=== PATIENT | female | born 1985 ===

== ENCOUNTER 2020-04-29 14:44 | Outpatient (REF) | payer MEDICARE, MEDICAID, SELFPAY ==
[2020-04-29 16:31] LABS: CT PCR NOT DETECTED (Not Detect.); NG PCR NOT DETECTED (Not Detect.)
[2020-04-30 09:43] LABS: BV Int Neg Control Negative (Negative); BV Int Pos Control Positive (Positive)
== END 2020-04-29 14:45 | disposition home or self-care (01) ==
LOC: HO.LNP 14:44
PROVIDERS: Visit Provider Nurse Practitioner Family
DX: R30.0 Dysuria (principal); Z13.9 Encounter for screening, unspecified; B37.9 Candidiasis, unspecified
CPT/HCPCS: 87480; 87491; 87510; 87591; 87660

== ENCOUNTER 2020-08-18 15:05 | Emergency (ER) | payer MEDICARE, MEDICAID, SELFPAY ==
--- NOTE | 2020-08-18 | ECG_ITS ---
Test Reason : OVERDOSE Blood Pressure : / mmHG Vent. Rate : 083 BPM Atrial Rate : 083 BPM P-R Int : 148 ms QRS Dur : 062 ms QT Int : 370 ms P-R-T Axes : 050 000 031 degrees QTc Int : 434 ms Normal sinus rhythm Normal ECG No previous ECGs available Referred By: Prasad Roth Electronically Signed By:BHAKTI MCQUEEN MD
[2020-08-18 15:14] VITALS: BP 148/87; PULSE 81; RESP 22; TEMP 37.1; O2SAT 99; BMI 28.9
[2020-08-18 15:28] LABS: Glucose, Whole Blood 61 mg/dL (60-115)
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
[2020-08-18 15:34] VITALS: BP 124/80; PULSE 79; RESP 18; O2SAT 98
[2020-08-18 15:43] LABS: MANUAL DIFF FLAG NO
[2020-08-18 15:44] LABS: Basophils Percent Auto 0.3 % (0-2); Eosinophils Absolute Auto 0.2 X10*3/uL (0.0-0.4); Eosinophils Percent Auto 1.7 % (0-4); Hemoglobin 12.1 g/dl (12.0-16.0); Imm Gran Abs Auto 0.05 X10*3/uL (0.00-0.03); Imm Gran Pct Auto 0.5 % (0.0-0.4); Lymphocytes Absolute Auto 2.6 X10*3/uL (1.2-4.9); Lymphocytes Percent Auto 24.5 % (20-40); Mean Corpuscular HGB Conc 32.7 g/dl (31.0-35.0); Mean Corpuscular Hemoglobin 30.9 pg (27.0-33.0); Mean Corpuscular Volume 94.6 fL (80-98); Mean Platelet Volume 10.8 fL (9.4-12.3); Monocytes Absolute Auto 0.9 X10*3/uL (0.1-1.2); Monocytes Percent Auto 8.4 % (2-11); Neutrophils Percent Auto 64.6 % (45-73); Platelet Count 326 X10*3/uL (160-400); Red Blood Count 3.91 X10*6/uL (4.20-5.50); Red Cell Distribution Width 13.1 % (11.0-16.0); White Blood Count 10.8 X10*3/uL (4.8-10.8)
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
[2020-08-18 15:57] LABS: INTERNATIONAL NORM RATIO 1.1 (0.9-1.1); Prothrombin Time 12.9 SEC (10.8-13.0)
[2020-08-18 15:59] LABS: Partial Thromboplastin Time 37.4 SEC (24.1-38.0)
[2020-08-18] MEDS: Dextrose 5 % and 0.45 % NaCl 1,000 ML 125 ML IVCONT (16:05)
--- NOTE | 2020-08-18 16:05 | PC.NURSE ---
contact made with poison control. supportive care. pa aware
[2020-08-18 16:07] LABS: Ethanol < 10 mg/dL
[2020-08-18 16:11] LABS: Acetaminophen LAB < 1 mcg/mL (<30); Alanine Aminotransferase 20 U/L (0-31); Albumin Level 4.1 g/dL (3.5-5.0); Alkaline Phosphatase 93 U/L (39-117); Anion Gap 10 (12-20); Aspartate Amino Transferase 19 U/L (5-31); Bilirubin Direct < 0.2 mg/dL (0.0-0.5); Bilirubin Total 0.4 mg/dL (0.0-1.0); Blood Urea Nitrogen 8 mg/dL (9-16); Calcium 9.1 mg/dL (8.4-10.2); Carbon Dioxide 27 mmol/L (22-29); Chloride 107 mmol/L (96-108); Creatinine Clr Calc Pharmacy 100.3; Estimated Glomerular Filt Rate > 60; Glucose Random 86 mg/dL (60-115); Potassium 4.3 mmol/L (3.3-5.1); Salicylate < 5.0 mg/dL (15-30); Sodium 140 mmol/L (135-145); Total Protein 6.6 g/dL (6.5-8.0)
--- NOTE | 2020-08-18 16:16 | PC.NURSE ---
unable to complete [place] scale at this time d/t pt being drowsy
[2020-08-18 16:17] LABS: HCG Quantitative < 2 mIU/mL
[2020-08-18 16:26] LABS: Amphetamine Screen Urine Not Detected (Not Detect); Barbiturates, Urine Not Detected (Not Detect); Benzodiazepines Screen Urine Not Detected (Not Detect); Cannabinoid Screen Urine Not Detected (Not Detect); Cocaine Screen Urine Not Detected (Not Detect); Opiate Screen Urine Not Detected (Not Detect); Phencyclidine Screen Urine Not Detected (Not Detect)
[2020-08-18 17:41] LABS: Glucose Urine UA 100 MG/DL (NEG); Leukocyte Esterase Urine NEG (NEG); Nitrite Urine NEG (NEG); Urine Blood NEG (NEG); Urine Ketones NEG (NEG); Urine Protein NEG (NEG-TRACE)
[2020-08-18 17:45] LABS: Appearance Urine CLEAR; Color Urine STRAW
--- NOTE | 2020-08-18 17:51 | PC.NURSE ---
faxed and called to [facility]
[2020-08-18 18:31] VITALS: PULSE 80; O2SAT 98
--- NOTE | 2020-08-18 18:52 | PC.NURSE ---
pt is now more alert. ambualted to bathroom with po and security. pt requesting to go home. pt updated on plan of care and denies si at this time. pt educated she still needs to see n.
[2020-08-18 19:31] LABS: Glucose, Whole Blood 88 mg/dL (60-115)
[2020-08-18 19:32] VITALS: BP 119/58; PULSE 83; RESP 18; TEMP 36.7; O2SAT 98
--- NOTE | 2020-08-18 19:33 | PC.NURSE ---
eating sandwich, calm, iv fluids continue, reioriented to plan and fact that she must wait for bhn and cannot leave. pt is alert, perrla, denies si.
--- NOTE | 2020-08-18 20:49 | PC.NURSE ---
PT AMBULATORY TO BATHROOM WITH STEADY GAIT. PT REFUSING TO EAT, CONTINUED ON d5 INFUSION LAST POC 88.
--- NOTE | 2020-08-18 22:28 | PC.NURSE ---
called [facility] to get an estimated time. n confirmed she was on the list, then they reported that they needed us to resend the fax. transfer summary resent.
--- NOTE | 2020-08-18 22:47 | PC.NURSE ---
calling irma Mosquera confirms that fax was received. uNABLE TO GIVE ETA FOR EVAL. LIKELY NOT TILL TOMORROW.
[2020-08-19] VITALS: RESP 16
--- NOTE | 2020-08-19 01:00 | PC.NURSE ---
KARENAN MEETING WITH PATIENT AT THIS TIME.
[2020-08-19 02:00] VITALS: RESP 16
== END 2020-08-19 02:54 | disposition home or self-care (01) ==
PROVIDERS: Physician Assistant; Emergency Provider Emergency Medicine
DX: T42.4X1A Poisoning by benzodiazepines, accidental (unintentional), initial encounter (principal); Y92.9 Unspecified place or not applicable; Z79.899 Other long term (current) drug therapy
CPT/HCPCS: 36415; 80053; 80076; 80143; 80179; 80307; 80320; 81003; 82248; 82947; 84702; 85025; 85610; 85730; 93005; 96365; 96375; 99285

== ENCOUNTER 2020-09-14 12:34 | Emergency (ER) | payer MEDICARE, MEDICAID, SELFPAY ==
[2020-09-14 12:42] VITALS: BP 130/80; PULSE 84; O2SAT 98
[2020-09-14 12:57] VITALS: BP 119/60; PULSE 86; RESP 14; O2SAT 96; BMI 20.9
[2020-09-14 13:11] VITALS: BP 119/60; PULSE 86; RESP 14; O2SAT 96
[2020-09-14 13:22] LABS: MANUAL DIFF FLAG NO
[2020-09-14 13:35] LABS: Basophils Percent Auto 0.2 % (0-2); Eosinophils Absolute Auto 0.2 X10*3/uL (0.0-0.4); Eosinophils Percent Auto 2.4 % (0-4); Hematocrit 36.6 % (37-47); Hemoglobin 11.9 g/dl (12.0-16.0); Imm Gran Abs Auto 0.03 X10*3/uL (0.00-0.03); Imm Gran Pct Auto 0.3 % (0.0-0.4); Lymphocytes Absolute Auto 2.2 X10*3/uL (1.2-4.9); Lymphocytes Percent Auto 22.3 % (20-40); Mean Corpuscular HGB Conc 32.5 g/dl (31.0-35.0); Mean Corpuscular Hemoglobin 30.7 pg (27.0-33.0); Mean Corpuscular Volume 94.6 fL (80-98); Mean Platelet Volume 11.3 fL (9.4-12.3); Monocytes Absolute Auto 0.7 X10*3/uL (0.1-1.2); Monocytes Percent Auto 6.5 % (2-11); Neutrophils Absolute Auto 6.8 X10*3/uL (2.0-8.3); Neutrophils Percent Auto 68.3 % (45-73); Platelet Count 297 X10*3/uL (160-400); Red Blood Count 3.87 X10*6/uL (4.20-5.50); Red Cell Distribution Width 13.6 % (11.0-16.0)
[2020-09-14 13:52] LABS: Glucose Urine UA NEG (NEG); Leukocyte Esterase Urine NEG (NEG); Nitrite Urine NEG (NEG); Specific Gravity - Urine >= 1.030 (1.005-1.025); Urine Blood NEG (NEG); Urine Ketones NEG (NEG); Urine Protein NEG (NEG-TRACE)
[2020-09-14 13:54] LABS: Appearance Urine CLEAR; Color Urine YELLOW; UPreg QC Valid YES; Urine Pregnancy NEGATIVE (NEGATIVE)
[2020-09-14 13:57] LABS: Alanine Aminotransferase 21 U/L (0-31); Albumin Level 3.8 g/dL (3.5-5.0); Alkaline Phosphatase 82 U/L (39-117); Anion Gap 14 (12-20); Aspartate Amino Transferase 19 U/L (5-31); Bilirubin Total 0.2 mg/dL (0.0-1.0); Blood Urea Nitrogen 12 mg/dL (9-16); Calcium 8.5 mg/dL (8.4-10.2); Carbon Dioxide 21 mmol/L (22-29); Chloride 110 mmol/L (96-108); Creatinine Clr Calc Pharmacy 98.2; Estimated Glomerular Filt Rate > 60; Glucose Random 105 mg/dL (60-115); Potassium 3.8 mmol/L (3.3-5.1); Sodium 141 mmol/L (135-145); Total Protein 6.2 g/dL (6.5-8.0)
[2020-09-14 13:59] LABS: RBC Urine 0-2 /HPF (0); WBC Urine 0-2 /HPF (0-4)
[2020-09-14 14:00] LABS: Bacteria Urine 1+ /LPF; Mucus Urine 1+ /LPF; Squamous Epithelial Cell Urine 1+ /LPF
[2020-09-14 14:12] LABS: Amphetamine Screen Urine Not Detected (Not Detect); Barbiturates, Urine Not Detected (Not Detect); Benzodiazepines Screen Urine Not Detected (Not Detect); Cannabinoid Screen Urine Not Detected (Not Detect); Cocaine Screen Urine Not Detected (Not Detect); Opiate Screen Urine Not Detected (Not Detect); Phencyclidine Screen Urine Not Detected (Not Detect)
--- NOTE | 2020-09-14 14:56 | ED_ITS ---
HPI - Nausea/Vomiting/Diarrhea General Stated complaint: LETHARGIC&DIZZY S/P EATING EDIBLES TUESDAY Time Seen by Provider: 09/14/20 12:54 Source: patient and EMS Mode of arrival: EMS Limitations: no limitations History of Present Illness HPI Narrative: 35-year-old female who reports history of asthma otherwise denies any past medical or surgical history presenting via EMS after ingesting edible brownies states it made her feel dizzy some nausea. MD elicited complaint: nausea Description of vomiting: other Associated nausea: Yes Associated abdominal pain: Yes Location of pain: epigastric Radiation: epigastric Pain consistency: now resolved Severity: mild Quality: cramping Exacerbating factors: none Relieving factors: none Associated symptoms: denies other symptoms Related Data Home Medications Medication Instructions Recorded Confirmed fluoxetine 20 mg PO DAILY 08/18/20 08/18/20 lorazepam 0.5 mg PO BID PRN 08/18/20 08/18/20 magnesium oxide 400 mg PO DAILY 08/18/20 08/18/20 montelukast 10 mg PO BEDTIME 08/18/20 08/18/20 omeprazole 40 mg PO DAILY 08/18/20 08/18/20 oxcarbazepine 150 mg PO BID 08/18/20 08/18/20 polyethylene glycol 3350 17 g PO DAILY 08/18/20 08/18/20 Allergies Allergy/AdvReac Type Severity Reaction Status Date / Time amoxicillin [AMOXICILLIN] Allergy Unknown RASH Unverified 02/21/20 17:04 cefuroxime [From CEFTIN] Allergy Unknown HIVES, Unverified 02/21/20 17:04 ANAPHYLAXIS divalproex sodium Allergy Unknown TALKS Unverified 02/21/20 17:04 [From DEPAKOTE] WEIRD Penicillins [PENICILLINS] Allergy Unknown HIVES Unverified 02/21/20 17:04 Review of Systems Review of Systems: Constitutional: No Weight loss, No Fever, No Chills, No Night Sweats, No Fatigue, No Malaise ENT/Mouth: No Hearing loss, No Ear Pain, No Nasal Congestion, No Sinus Pain, No Hoarseness, No sore throat, No Rhinorrhea, No Swallowing Difficulty Eyes: No Eye Pain, No Swelling, No Redness, No Foreign Body, No Discharge, No Vision Changes Cardiovascular: No Chest Pain, No SOB, No Dyspnea on Exertion, No Orthopnea, No Edema, No Palpitations Respiratory: No Cough, No Sputum, No Wheezing, No Smoke Exposure, No Dyspnea Gastrointestinal: + Nausea, No Vomiting, No Diarrhea, No Constipation, No abdominal Pain, No Hematochezia, No Melena Genitourinary: no irregular bleeding, No Dysuria, No Urinary Frequency, No Hematuria, No Urinary Incontinence, No Urgency, No Flank Pain, No Urinary Flow Changes, No Hesitancy Musculoskeletal: No joint pain, No Myalgias, No Joint Swelling Skin: No Skin Lesions, No rash Neuro: No Weakness, No Numbness, No Paresthesias, No Loss of Consciousness, No Dizziness, No Headache Psych: No Anxiety/Panic, No Depression, No SI/HI/AH/VH, No Social Issues Heme/Lymph: No Bruising, No Bleeding,No Lymphadenopathy Endocrine: No Polyuria, No Polydipsia, No Temperature Intolerance Yes all other systems are reviewed and are negative Gastrointestinal: Gastrointestinal: Reports nausea PMFSH Past Medical History Medical History (Updated 09/14/20 @ 15:07 by Dwayne Murdock NP) Asthma No known health problems Social History Social History Alcohol intake: current Alcohol intake frequency: a few times a week Smoking Status: Current some day smoker Use of substances other than those prescribed or required for medical reasons: Yes Substance Use Type: Marijuana Substance Use Frequency: Occasionally Last Used Substance: Days (ago) Any prior treatment program specific to substance use: No Advance Directives: No Physical Exam Vital Signs: Vital Signs: Last Vital Signs Pulse 86 09/14/20 13:11 Resp 14 09/14/20 13:11 BP 119/60 09/14/20 13:11 Pulse Ox 96 09/14/20 13:11 Body Mass Index 20.9 Reviewed Const: General: cooperative and healthy appearing; No acute distress or intoxicated appearing Nutritional Appearance: average body habitus Orientation/consciousness: patient oriented x3 HENMT: Head: Yes normal to inspection Ears: hearing grossly normal bilaterally Eyes: General: appearance normal, both eyes and all related structures Visual Peterson: normal visual peterson by confrontation Neck: Neck: Yes normal visual inspection, No positive Brudzinski's sign, No positive Kernig's sign and No tender Thyroid: Thyroid normal Chest: Chest palpation & inspection: normal inspection of the chest Resp: Effort & Inspection: normal respiratory effort Auscultation: clear to auscultation bilaterally Cardio: Jugular venous distension: no JVD Rhythm: regular rhythm Heart sounds: S1 normal heart sound present and S2 normal heart sound present GI: Inspection: Yes normal to inspection Palpation (GI): Soft to palpation Percussion: Yes normal to percussion Auscultation: normal bowel sounds : General: Yes no CVA tenderness Back/Spine/Pelvis: Back: no CVA tenderness Skin: General skin exam: no rashes or lesions noted Neuro: General: patient oriented x3 Extrem: General: Yes normal to inspection Course Reevaluation(s) Reevaluation #1: Feeling of dizziness, nausea and euphoric state after ingesting edible Brownie. Has been resting comfortably no nausea vomiting diarrhea here. Labs done stable. Tolerating p.o. intake well. Overall well nontoxic appearing. Offers no other complaints. VSS, NAD. Abdominal exam remains benign. It is reported in the nurse's triage ?tenderness to right lower abdomen, shakiness and nausea? but she has only epigastric pain directly after she had the edible otherwise no abdominal pain. I did review with her her findings consistent with the gastric irritation and affects from the edible. I do not suspect acute intra-abdominal pathology however she will be discharged with precaution return follow-up instructions. She feels better she is requesting discharge. MDM - Nausea/Vomiting/Diarrhea Lab Data Result diagrams: 09/14/20 13:17 09/14/20 13:18 Labs: Lab Results 09/14/20 09/14/20 09/14/20 Range/Units 13:17 13:18 13:43 WBC 10.0 (4.8-10.8) X10*3/uL RBC 3.87 L (4.20-5.50) X10*6/uL Hgb 11.9 L (12.0-16.0) g/dl Hct 36.6 L (37-47) % MCV 94.6 (80-98) fL MCH 30.7 (27.0-33.0) pg MCHC 32.5 (31.0-35.0) g/dl RDW 13.6 (11.0-16.0) % Plt Count 297 (160-400) X10*3/uL MPV 11.3 (9.4-12.3) fL Immature Gran % (Auto) 0.3 (0.0-0.4) % Neut % (Auto) 68.3 (45-73) % Lymph % (Auto) 22.3 (20-40) % Spencer % (Auto) 6.5 (2-11) % Eos % (Auto) 2.4 (0-4) % Baso % (Auto) 0.2 (0-2) % Lymph # (Auto) 2.2 (1.2-4.9) X10*3/uL Spencer # (Auto) 0.7 (0.1-1.2) X10*3/uL Eos # (Auto) 0.2 (0.0-0.4) X10*3/uL Baso # (Auto) 0.0 (0.0-0.2) X10*3/uL Abs Immat Gran (auto) 0.03 (0.00-0.03) X10*3/uL Absolute Neuts (auto) 6.8 (2.0-8.3) X10*3/uL Absolute Nucleated RBC 0.000 (0.0-0.012) X10*3/uL Nucleated RBC % (auto) 0.0 (0.0-0.2) /100WBC Sodium 141 (135-145) mmol/L Potassium 3.8 (3.3-5.1) mmol/L Chloride 110 H (96-108) mmol/L Carbon Dioxide 21 L (22-29) mmol/L Anion Gap 14 (12-20) BUN 12 (9-16) mg/dL Creatinine 0.73 (0.5-1.4) mg/dL Estim Creat Clear Calc 98.2 Estimated GFR > 60 Random Glucose 105 (60-115) mg/dL Calcium 8.5 D (8.4-10.2) mg/dL Total Bilirubin 0.2 (0.0-1.0) mg/dL AST 19 (5-31) U/L ALT 21 (0-31) U/L Alkaline Phosphatase 82 (39-117) U/L Total Protein 6.2 L (6.5-8.0) g/dL Albumin 3.8 (3.5-5.0) g/dL Urine Color Urine Appearance Urine pH (5.0-8.0) Ur Specific [place] (1.005-1.025) Urine Protein (NEG-TRACE) MG/DL Urine Glucose (UA) (NEG) MG/DL Urine Ketones (NEG) MG/DL Urine Blood (NEG) Urine Nitrite (NEG) Ur Leukocyte Esterase (NEG) Urine RBC (0) /HPF Urine WBC (0-4) /HPF Ur Squamous Epith Cells /LPF Urine Bacteria /LPF Urine Mucus /LPF Urine Test (NEGATIVE) Urine Opiates Screen Not Detected (Not Detect) Ur Barbiturates Screen Not Detected (Not Detect) Ur Phencyclidine Scrn Not Detected (Not Detect) Ur Amphetamines Screen Not Detected (Not Detect) U Benzodiazepines Scrn Not Detected (Not Detect) Urine Cocaine Screen Not Detected (Not Detect) U Marijuana (THC) Screen Not Detected (Not Detect) 09/14/20 09/14/20 Range/Units 13:43 13:43 WBC (4.8-10.8) X10*3/uL RBC (4.20-5.50) X10*6/uL Hgb (12.0-16.0) g/dl Hct (37-47) % MCV (80-98) fL MCH (27.0-33.0) pg MCHC (31.0-35.0) g/dl RDW (11.0-16.0) % Plt Count (160-400) X10*3/uL MPV (9.4-12.3) fL Immature Gran % (Auto) (0.0-0.4) % Neut % (Auto) (45-73) % Lymph % (Auto) (20-40) % Spencer % (Auto) (2-11) % Eos % (Auto) (0-4) % Baso % (Auto) (0-2) % Lymph # (Auto) (1.2-4.9) X10*3/uL Spencer # (Auto) (0.1-1.2) X10*3/uL Eos # (Auto) (0.0-0.4) X10*3/uL Baso # (Auto) (0.0-0.2) X10*3/uL Abs Immat Gran (auto) (0.00-0.03) X10*3/uL Absolute Neuts (auto) (2.0-8.3) X10*3/uL Absolute Nucleated RBC (0.0-0.012) X10*3/uL Nucleated RBC % (auto) (0.0-0.2) /100WBC Sodium (135-145) mmol/L Potassium (3.3-5.1) mmol/L Chloride (96-108) mmol/L Carbon Dioxide (22-29) mmol/L Anion Gap (12-20) BUN (9-16) mg/dL Creatinine (0.5-1.4) mg/dL Estim Creat Clear Calc Estimated GFR Random Glucose (60-115) mg/dL Calcium (8.4-10.2) mg/dL Total Bilirubin (0.0-1.0) mg/dL AST (5-31) U/L ALT (0-31) U/L Alkaline Phosphatase (39-117) U/L Total Protein (6.5-8.0) g/dL Albumin (3.5-5.0) g/dL Urine Color YELLOW Urine Appearance CLEAR Urine pH 6.0 (5.0-8.0) Ur Specific [place] >= 1.030 H (1.005-1.025) Urine Protein NEG (NEG-TRACE) MG/DL Urine Glucose (UA) NEG (NEG) MG/DL Urine Ketones NEG (NEG) MG/DL Urine Blood NEG (NEG) Urine Nitrite NEG (NEG) Ur Leukocyte Esterase NEG (NEG) Urine RBC 0-2 (0) /HPF Urine WBC 0-2 (0-4) /HPF Ur Squamous Epith Cells 1+ /LPF Urine Bacteria 1+ /LPF Urine Mucus 1+ /LPF Urine Test NEGATIVE (NEGATIVE) Urine Opiates Screen (Not Detect) Ur Barbiturates Screen (Not Detect) Ur Phencyclidine Scrn (Not Detect) Ur Amphetamines Screen (Not Detect) U Benzodiazepines Scrn (Not Detect) Urine Cocaine Screen (Not Detect) U Marijuana (THC) Screen (Not Detect) Discharge Plan Discharge Clinical Impression: Nausea, Use of cannabinoid edibles Patient Disposition: Home, Self-Care Instructions: Anxiety (ED), Acute Nausea and Vomiting (ED) Additional Instructions: Avoid any further ingestion of any further illicit drug use Supportive care discussed Return if any concerns or worsening symptoms Otherwise follow up with her primary care doctor Thank you Prescriptions: No Action oxcarbazepine 150 mg tablet 150 mg PO BID RF: 0 polyethylene glycol 3350 17 gram powder in packet 17 g PO DAILY RF: 0 omeprazole 40 mg capsule,delayed release(DR/EC) 40 mg PO DAILY RF: 0 magnesium oxide 400 mg (241.3 mg magnesium) tablet 400 mg PO DAILY RF: 0 lorazepam 0.5 mg tablet 0.5 mg PO BID PRN (Reason: Anxiety) RF: 0 montelukast 10 mg tablet 10 mg PO BEDTIME RF: 0 fluoxetine 20 mg capsule 20 mg PO DAILY RF: 0 Referrals: ED Physician,Generic [Emergency Provider] - 2 days
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
== END 2020-09-14 15:44 | disposition home or self-care (01) ==
PROVIDERS: Nurse Practitioner Primary Care; Emergency Provider Emergency Medicine Emergency Medical Services
DX: R11.0 Nausea (principal); R42 Dizziness and giddiness; F12.90 Cannabis use, unspecified, uncomplicated; F17.200 Nicotine dependence, unspecified, uncomplicated; F41.9 Anxiety disorder, unspecified; Z79.899 Other long term (current) drug therapy; Z91.410 Personal history of adult physical and sexual abuse
CPT/HCPCS: 36415; 80053; 80307; 81001; 81025; 85025; 99283; 99284

== ENCOUNTER 2020-09-28 12:40 | Emergency (ER) | payer MEDICARE, MEDICAID, SELFPAY ==
--- NOTE | ~2020-09-28 | CT_ITS ---
EXAMINATION: CT HEAD/BRAIN WITHOUT CONTRAST CLINICAL INFORMATION: Fall COMPARISON: None. TECHNIQUE: CT scanning from base of skull to vertex performed without IV contrast administration. This CT examination was performed using dose optimization techniques as appropriate, variously including the following: *Automated exposure control *Adjustment of mA and/or kV according to patient size (this includes techniques or standardized protocols for targeted exams where dose is matched to indication/reason for exam; i.e. extremities or head) *Use of iterative reconstruction technique DLP: 656.12 mGy-cm. FINDINGS: The ventricles, sulci, and cisterns appear unremarkable. No abnormal extra-axial fluid collection or intracranial hemorrhage is seen. No significant mass effect or midline structure shift is evident. Visualized paranasal sinuses and mastoid air cells unremarkable. CT/CT head/brain wo con IMPRESSION: No acute intracranial abnormality. EXAMINATION: CT OF THE CERVICAL SPINE CLINICAL INFORMATION: Fall with neck pain COMPARISON: None. TECHNIQUE: Thin helical images with sagittal and coronal reformats. This CT examination was performed using dose optimization techniques as appropriate, variously including the following: *Automated exposure control *Adjustment of mA and/or kV according to patient size (this includes techniques or standardized protocols for targeted exams where dose is matched to indication/reason for exam; i.e. extremities or head) *Use of iterative reconstruction technique DOSE: DLP 565.66 mGy-cm FINDINGS: The vertebral alignment is normal. The atlantoaxial and atlanto-occipital articulations are normal. No fracture. No intrinsic bony abnormality. The vertebral bodies and posterior elements are normal. The disc heights are preserved. The bony canal and neural foramina are well maintained. The surrounding soft tissues are normal. The lung apices are clear. Temporomandibular joints appear unremarkable. IMPRESSION: No significant bony abnormality of the cervical spine identified.
--- NOTE | ~2020-09-28 | CT_ITS ---
EXAMINATION: CT HEAD/BRAIN WITHOUT CONTRAST CLINICAL INFORMATION: Fall COMPARISON: None. TECHNIQUE: CT scanning from base of skull to vertex performed without IV contrast administration. This CT examination was performed using dose optimization techniques as appropriate, variously including the following: *Automated exposure control *Adjustment of mA and/or kV according to patient size (this includes techniques or standardized protocols for targeted exams where dose is matched to indication/reason for exam; i.e. extremities or head) *Use of iterative reconstruction technique DLP: 656.12 mGy-cm. FINDINGS: The ventricles, sulci, and cisterns appear unremarkable. No abnormal extra-axial fluid collection or intracranial hemorrhage is seen. No significant mass effect or midline structure shift is evident. Visualized paranasal sinuses and mastoid air cells unremarkable. CT/CT cervical spine wo con IMPRESSION: No acute intracranial abnormality. EXAMINATION: CT OF THE CERVICAL SPINE CLINICAL INFORMATION: Fall with neck pain COMPARISON: None. TECHNIQUE: Thin helical images with sagittal and coronal reformats. This CT examination was performed using dose optimization techniques as appropriate, variously including the following: *Automated exposure control *Adjustment of mA and/or kV according to patient size (this includes techniques or standardized protocols for targeted exams where dose is matched to indication/reason for exam; i.e. extremities or head) *Use of iterative reconstruction technique DOSE: DLP 565.66 mGy-cm FINDINGS: The vertebral alignment is normal. The atlantoaxial and atlanto-occipital articulations are normal. No fracture. No intrinsic bony abnormality. The vertebral bodies and posterior elements are normal. The disc heights are preserved. The bony canal and neural foramina are well maintained. The surrounding soft tissues are normal. The lung apices are clear. Temporomandibular joints appear unremarkable. IMPRESSION: No significant bony abnormality of the cervical spine identified.
--- NOTE | ~2020-09-28 | XR_ITS ---
EXAMINATION: LUMBOSACRAL SPINE 3 VIEWS CLINICAL INFORMATION: Back pain after fall. COMPARISON: None. TECHNIQUE: AP, lateral, spot lateral views of the lumbosacral spine are provided. FINDINGS: There are no fractures. The lumbar vertebrae are in normal alignment. Disc heights and vertebral body heights are well-preserved. XR/XR lumbar spine 2-3V IMPRESSION: Unremarkable lumbosacral spine series.
[2020-09-28 12:57] VITALS: BP 131/69; BP 158/100; PULSE 74; PULSE 78; RESP 16; TEMP 36.4; O2SAT 100; O2SAT 99; BMI 66.0
--- NOTE | 2020-09-28 13:02 | ED.FALL ---
HPI - Fall General Chief Complaint: Back Pain/Injury Stated Complaint: fall from Bed Time Seen by Provider: 09/28/20 14:36 Source: patient Mode of arrival: ambulatory Limitations: no limitations History of Present Illness HPI Narrative: Patient presents to ED for posterior neck pain. Patient states 2 days ago she rolled off the bed by accident fell onto her neck and since then has had pain. Patient denies any upper extremity paralysis/numbness/tingling. Patient denies any headache, nausea, vomiting or dizziness. Patient denies loss of consciousness with the accident happened. Patient denies any history of any brain bleed or any blood thinner use. Patient's secondary complaint is low back pain due to falling onto back after rolling off the bed. Related Data Home Medications Medication Instructions Recorded Confirmed fluoxetine 20 mg PO DAILY 08/18/20 08/18/20 lorazepam 0.5 mg PO BID PRN 08/18/20 08/18/20 magnesium oxide 400 mg PO DAILY 08/18/20 08/18/20 montelukast 10 mg PO BEDTIME 08/18/20 08/18/20 omeprazole 40 mg PO DAILY 08/18/20 08/18/20 oxcarbazepine 150 mg PO BID 08/18/20 08/18/20 polyethylene glycol 3350 17 g PO DAILY 08/18/20 08/18/20 Previous Rx's Medication Instructions Recorded naproxen 500 mg PO BID PRN #20 tab 09/28/20 Allergies Allergy/AdvReac Type Severity Reaction Status Date / Time amoxicillin [AMOXICILLIN] Allergy Unknown RASH Unverified 02/21/20 17:04 cefuroxime [From CEFTIN] Allergy Unknown HIVES, Unverified 02/21/20 17:04 ANAPHYLAXIS divalproex sodium Allergy Unknown TALKS Unverified 02/21/20 17:04 [From DEPAKOTE] WEIRD Penicillins [PENICILLINS] Allergy Unknown HIVES Unverified 02/21/20 17:04 Review of Systems Review of Systems: Yes all other systems are reviewed and are negative Constitutional: Constitutional: Reports as per HPI and Reports no additional constitutional complaints Eyes: Eyes: Reports as per HPI and Reports no additional eye complaints ENT: Reports system reviewed and no additional complaints, except as documented, Reports as per HPI and Reports neck pain Cardiovascular: Cardiovascular: Reports as per HPI and Reports no additional cardiovascular complaints Respiratory: Respiratory: Reports as per HPI and Reports no additional respiratory complaints Gastrointestinal: Gastrointestinal: Reports as per HPI and Reports no additional gastrointestinal complaints Genitourinary: Genitourinary: Reports no additional female genitourinary complaints and Reports as per HPI Musculoskeletal: Musculoskeletal: Reports no additional musculoskeletal complaints, Reports as per HPI and Reports neck pain Neurologic: Reports system reviewed and no additional complaints, except as documented and Reports as per HPI Psychiatric: Psychiatric: Reports no additional psychiatric complaints and Reports as per HPI Endocrine: Endocrine: Reports no additional endocrine complaints and Reports as per HPI [facility] Past Medical History Medical History (Updated 09/28/20 @ 15:45 by CARLEEN Benítez) Asthma Depression No known health problems Social History Social History Alcohol intake: current Alcohol intake frequency: a few times a week Smoking Status: Current some day smoker Substance Use Type: Marijuana Advance Directives: No Advance Directives Information Provided: No Physical Exam Vital Signs: Vital Signs: Last Vital Signs Temp 97.6 F 09/28/20 12:57 Pulse 78 09/28/20 12:57 Resp 16 09/28/20 12:57 BP 131/69 09/28/20 12:57 Pulse Ox 99 09/28/20 12:57 Body Mass Index 66.0 Const: General: cooperative, healthy appearing, comfortable, well developed, alert, awake, Physically active, acute distress and anxious Orientation/consciousness: patient oriented x3 HENMT: Head: Yes normal to inspection, Yes No palpable skull fracture present, Yes normocephalic and Yes atraumatic Eyes: General: appearance normal, both eyes and all related structures Neck: Neck: Yes normal visual inspection, Yes full ROM, Yes no lymphadenopathy, Yes no meningeal signs, Yes trachea midline, Yes supple and Yes tender (Posterior cervical pain) Chest: Chest palpation & inspection: normal inspection of the chest and normal palpation of entire chest wall Resp: Effort & Inspection: normal respiratory effort and able to speak in complete sentences Auscultation: clear to auscultation bilaterally Cardio: Jugular venous distension: no JVD Heart sounds: S1 normal heart sound present and S2 normal heart sound present GI: Inspection: Yes normal to inspection and No abdominal wall ecchymosis Palpation (GI): Soft to palpation, not firm, nontender, no guarding and not rigid : General: No CVA tenderness and Yes no CVA tenderness Back/Spine/Pelvis: Back: no CVA tenderness, No CVA tenderness and back tenderness (Positive for lumbar spine tenderness on palpation) Skin: General skin exam: no rashes or lesions noted and elasticity normal Neuro: General: patient oriented x3, no meningeal signs and CN's II-XI intact bilaterally Cranial nerves: Yes CN's II-XII intact bilaterally Extrem: General: Yes normal to inspection and Yes full ROM Psych: Appearance: grossly normal, well kempt and not disheveled Course Course Course Narrative: Patient will be sent for head CT, cervical spine and lumbar back x-ray. Patient given Tylenol for pain Reevaluation(s) Reevaluation #1: Images came back negative for lumbar fracture, brain bleed, neck fracture. Patient is safe for discharge. negative. MDM - Fall Lab Data Labs: Lab Results 09/28/20 09/28/20 Range/Units 13:32 13:32 Urine Color STRAW Urine Appearance CLEAR Urine pH 6.0 (5.0-8.0) Ur Specific [place] <= 1.005 (1.005-1.025) Urine Protein NEG (NEG-TRACE) MG/DL Urine Glucose (UA) NEG (NEG) MG/DL Urine Ketones NEG (NEG) MG/DL Urine Blood NEG (NEG) Urine Nitrite NEG (NEG) Ur Leukocyte Esterase NEG (NEG) Urine Test NEGATIVE (NEGATIVE) Discharge Plan Discharge Clinical Impression: Fall Patient Disposition: Home, Self-Care Instructions: Contusion in Adults (ED) Additional Instructions: Return to the ED immediately for any headache, dizziness, chest pain, shortness of breath, worsening neck pain, paralysis/tingling upper extremities, abdominal pain, rectal bleeding, nausea, vomiting blood, bloody urine, or any other concerning symptoms. Please follow-up with PCP Prescriptions: New naproxen 500 mg tablet 500 mg PO BID PRN (Reason: pain) Qty: 20 RF: 0 No Action oxcarbazepine 150 mg tablet 150 mg PO BID RF: 0 polyethylene glycol 3350 17 gram powder in packet 17 g PO DAILY RF: 0 omeprazole 40 mg capsule,delayed release(DR/EC) 40 mg PO DAILY RF: 0 magnesium oxide 400 mg (241.3 mg magnesium) tablet 400 mg PO DAILY RF: 0 lorazepam 0.5 mg tablet 0.5 mg PO BID PRN (Reason: Anxiety) RF: 0 montelukast 10 mg tablet 10 mg PO BEDTIME RF: 0 fluoxetine 20 mg capsule 20 mg PO DAILY RF: 0 Print Language: B[place]
[2020-09-28] MEDS: Acetaminophen 325 MG TABLET 650 MG PO (13:33)
[2020-09-28 14:02] LABS: Glucose Urine UA NEG (NEG); Leukocyte Esterase Urine NEG (NEG); Nitrite Urine NEG (NEG); Specific Gravity - Urine <= 1.005 (1.005-1.025); Urine Blood NEG (NEG); Urine Ketones NEG (NEG); Urine Protein NEG (NEG-TRACE)
[2020-09-28 14:03] LABS: Appearance Urine CLEAR; Color Urine STRAW
[2020-09-28 14:05] LABS: UPreg QC Valid YES; Urine Pregnancy NEGATIVE (NEGATIVE)
[2020-09-28] MEDS: LORazepam 1 MG TABLET PO (14:45)
--- NOTE | 2020-09-28 14:47 | PC.NURSE ---
pt returned from ct scan extremely upset/crying/stated my anxiety is so bad, pts mom on telephone this rn spoke with her, mom reports pt has severe intellectual disabilities and that she would need to be medicated for any testing r/t anxiety issues, anoop altamirano updated, medicated with ativan, remains lying on stretcher with hard collar awaiting ct results. voided on bedpan, pts aunt to come and sit with patient,
[2020-09-28] MEDS: Ketorolac Tromethamine 30 MG/ML VIAL IM (15:58)
[2020-09-28 16:39] VITALS: BP 126/67; PULSE 72; RESP 16; TEMP 36.6
== END 2020-09-28 16:43 | disposition home or self-care (01) ==
PROVIDERS: Physician Assistant; Emergency Provider Emergency Medicine
DX: S30.0XXA Contusion of lower back and pelvis, initial encounter (principal); S10.93XA Contusion of unspecified part of neck, initial encounter; W06.XXXA Fall from bed, initial encounter; F41.9 Anxiety disorder, unspecified; F17.200 Nicotine dependence, unspecified, uncomplicated; Y93.84 Activity, sleeping; Y92.032 Bedroom in apartment as the place of occurrence of the external cause; Y99.9 Unspecified external cause status
CPT/HCPCS: 36415; 70450; 72100; 72125; 81003; 81025; 96372; 99284; J1885

== ENCOUNTER 2020-11-08 00:26 | Emergency (ER) | payer MEDICARE, MEDICAID, SELFPAY ==
[2020-11-08 01:14] VITALS: BP 110/69; PULSE 82; RESP 16; TEMP 37.1; O2SAT 97; BMI 26.2
== END 2020-11-08 02:41 | disposition left against medical advice (07) ==
PROVIDERS: Emergency Provider Emergency Medicine
DX: J45.909 Unspecified asthma, uncomplicated (principal); R06.02 Shortness of breath
CPT/HCPCS: 99282

== ENCOUNTER 2020-12-06 20:23 | Emergency (ER) | payer MEDICARE, MEDICAID, SELFPAY ==
--- NOTE | ~2020-12-06 | XR_ITS ---
EXAMINATION: XR CHEST CLINICAL INFORMATION: Shortness of breath COMPARISON: 05/27/2017 TECHNIQUE: Frontal view of the chest was obtained. FINDINGS: The cardiomediastinal silhouette is within normal limits. The lungs are well expanded. There is no focal consolidation, edema, or effusion. No pneumothorax. No acute osseous abnormality. XR/XR chest 1V IMPRESSION: No acute process seen.
[2020-12-06 20:30] VITALS: BP 131/74; BP 142/84; PULSE 126; PULSE 93; RESP 17; TEMP 36.8; O2SAT 97; O2SAT 99; BMI 24.0
[2020-12-06 20:35] VITALS: BP 131/74; PULSE 89; RESP 15; TEMP 36.8; O2SAT 97
--- NOTE | 2020-12-06 20:38 | ED_ITS ---
HPI - Asthma General Chief Complaint: Asthma Stated Complaint: Difficulty breathing Time Seen by Provider: 12/06/20 20:38 Source: patient Mode of arrival: EMS Limitations: no limitations History of Present Illness HPI Narrative: patient history of asthma with complaining of increased shortness of breath for last few days with mucopurulent expectoration using abduct treatment at home without much relief no fever no chills no chest pain when patient came and saturating 97% at room air Related Data Home Medications Medication Instructions Recorded Confirmed fluoxetine 20 mg PO DAILY 08/18/20 12/06/20 lorazepam 0.5 mg PO BID PRN 08/18/20 12/06/20 montelukast 10 mg PO BEDTIME 08/18/20 12/06/20 omeprazole 40 mg PO DAILY 08/18/20 12/06/20 oxcarbazepine 150 mg PO BID 08/18/20 12/06/20 Previous Rx's Medication Instructions Recorded naproxen 500 mg PO BID PRN #20 tab 09/28/20 albuterol sulfate 2.5 mg INHALATION Q4-6H PRN #90 ml 12/07/20 azithromycin [Zithromax] 250 mg PO DAILY #4 tab 12/07/20 benzonatate [Tessalon Perles] 100 mg PO TID PRN #20 cap 12/07/20 codeine-guaifenesin 10 ml PO Q4-6H PRN #240 ml 12/07/20 prednisone 40 mg PO DAILY #10 tab 12/07/20 Allergies Allergy/AdvReac Type Severity Reaction Status Date / Time amoxicillin [AMOXICILLIN] Allergy Unknown RASH Verified 12/06/20 20:33 cefuroxime [From CEFTIN] Allergy Unknown HIVES, Verified 12/06/20 20:33 ANAPHYLAXIS divalproex sodium Allergy Unknown TALKS Verified 12/06/20 20:33 [From DEPAKOTE] WEIRD Penicillins [PENICILLINS] Allergy Unknown HIVES Verified 12/06/20 20:33 Review of Systems Review of Systems: Yes all other systems are reviewed and are negative PMFSH Past Medical History Medical History Asthma Depression No known health problems Social History Social History Alcohol intake: current Alcohol intake frequency: holidays/special occasions only Patient Tobacco Use Status: Never used Tobacco Use of substances other than those prescribed or required for medical reasons: Yes Substance Use Type: Marijuana Advance Directives: No Advance Directives Information Provided: Yes Patient : No Physical Exam Vital Signs: Vital Signs: Last Vital Signs Temp 98.5 F 12/06/20 22:37 Pulse 92 12/06/20 22:47 Resp 20 12/06/20 22:37 BP 142/87 H 12/06/20 22:37 Pulse Ox 98 12/06/20 22:37 Body Mass Index 24.0 Appearance: Alert. Oriented X3. coughing a lot saturating 97% at room air Eyes: PERRLA, No Nystagmus ENT: Pharynx normal. Oral Mucosa moist Neck: Normal inspection. Neck supple. CVS: Normal heart rate and rhythm. Pulses normal. Respiratory: mildrespiratory distress. Equal air entry bilateral, bilateral wheezing/rhonchi no rales Abdomen: Soft and nontender. Bowel sounds are present, no mass palpable, no CVA tenderness Skin: Skin warm and dry. Normal skin color. Normal skin turgor. Extremities: No lower extremity edema. No calf tenderness Neuro: Oriented X 3. No motor deficit. MDM - Asthma Lab Data Attestation: I reviewed the patient's lab results. Result diagrams: 12/06/20 21:14 12/06/20 21:14 Labs: Lab Results 12/06/20 12/06/20 12/06/20 Range/Units 21:14 21:14 21:14 WBC 14.2 H (4.8-10.8) X10*3/uL RBC 3.98 L (4.20-5.50) X10*6/uL Hgb 12.4 (12.0-16.0) g/dl Hct 37.4 (37-47) % MCV 94.0 (80-98) fL MCH 31.2 (27.0-33.0) pg MCHC 33.2 (31.0-35.0) g/dl RDW 13.7 (11.0-16.0) % Plt Count 353 (160-400) X10*3/uL MPV 10.9 (9.4-12.3) fL Immature Gran % (Auto) 0.5 H (0.0-0.4) % Neut % (Auto) 68.1 (45-73) % Lymph % (Auto) 24.4 (20-40) % [place] % (Auto) 5.8 (2-11) % Eos % (Auto) 1.0 (0-4) % Baso % (Auto) 0.2 (0-2) % Lymph # (Auto) 3.5 (1.2-4.9) X10*3/uL [place] # (Auto) 0.8 (0.1-1.2) X10*3/uL Eos # (Auto) 0.1 (0.0-0.4) X10*3/uL Baso # (Auto) 0.0 (0.0-0.2) X10*3/uL Abs Immat Gran (auto) 0.07 H (0.00-0.03) X10*3/uL Absolute Neuts (auto) 9.7 H (2.0-8.3) X10*3/uL Absolute Nucleated RBC 0.000 (0.0-0.012) X10*3/uL Nucleated RBC % (auto) 0.0 (0.0-0.2) /100WBC Sodium 144 (135-145) mmol/L Potassium 3.6 (3.3-5.1) mmol/L Chloride 109 H (96-108) mmol/L Carbon Dioxide 27 (22-29) mmol/L Anion Gap 12 (12-20) BUN 7 L (9-16) mg/dL Creatinine 0.76 (0.5-1.4) mg/dL Estim Creat Clear Calc 87.5 Estimated GFR > 60 Random Glucose 106 (60-115) mg/dL Calcium 9.4 D (8.4-10.2) mg/dL COVID-19 (ANGI) Negative (Negative) COVID-19 Clin Com See Note Discharge Plan Discharge Clinical Impression: Acute bronchitis Qualifiers: Bronchitis organism: unspecified organism Qualified Code(s): J20.9 - Acute bronchitis, unspecified Patient Disposition: Home, Self-Care Instructions: Acute Bronchitis (ED) Additional Instructions: continue to take nebulizing treatment every 4-6 hours Take prednisone as prescribed Take cough syrup and antibiotic as prescribed Follow with PCP if not better Prescriptions: New prednisone 20 mg tablet 40 mg PO DAILY Qty: 10 RF: 0 codeine-guaifenesin 10-100 mg/5 mL liquid 10 ml PO Q4-6H PRN (Reason: Cough) Qty: 240 RF: 0 albuterol sulfate 2.5 mg /3 mL (0.083 %) solution for nebulization 2.5 mg inhalation Q4-6H PRN (Reason: shortness of breath or wheezing) Qty: 90 RF: 0 azithromycin [Zithromax] 250 mg tablet 250 mg PO DAILY Qty: 4 RF: 0 benzonatate [Tessalon Perles] 100 mg capsule 100 mg PO TID PRN (Reason: cough) Qty: 20 RF: 0 No Action oxcarbazepine 150 mg tablet 150 mg PO BID RF: 0 omeprazole 40 mg capsule,delayed release(DR/EC) 40 mg PO DAILY RF: 0 lorazepam 0.5 mg tablet 0.5 mg PO BID PRN (Reason: Anxiety) RF: 0 montelukast 10 mg tablet 10 mg PO BEDTIME RF: 0 fluoxetine 20 mg capsule 20 mg PO DAILY RF: 0 naproxen 500 mg tablet 500 mg PO BID PRN (Reason: pain) Qty: 20 RF: 0
[2020-12-06] MEDS: Albuterol/Iprat 2.5/0.5MG 3 ML AMPUL.NEB INHALE (21:00)
[2020-12-06] MEDS: Albuterol Sulfate (0.083%) 2.5 MG/3 ML VIAL.NEB 5 MG INHALE (21:00)
[2020-12-06 21:06] VITALS: PULSE 81; O2SAT 97
[2020-12-06] MEDS: methylPREDNISolone Sod Succ 125 MG/2 ML VIAL IVPUSH (21:15)
[2020-12-06] MEDS: Magnesium Sulfate/H2O 2 GM/50 ML PIGGYBACK IV (21:15)
[2020-12-06 21:24] LABS: MANUAL DIFF FLAG NO
[2020-12-06 21:25] LABS: Basophils Percent Auto 0.2 % (0-2); Eosinophils Absolute Auto 0.1 X10*3/uL (0.0-0.4); Hematocrit 37.4 % (37-47); Hemoglobin 12.4 g/dl (12.0-16.0); Imm Gran Abs Auto 0.07 X10*3/uL (0.00-0.03); Imm Gran Pct Auto 0.5 % (0.0-0.4); Lymphocytes Absolute Auto 3.5 X10*3/uL (1.2-4.9); Lymphocytes Percent Auto 24.4 % (20-40); Mean Corpuscular HGB Conc 33.2 g/dl (31.0-35.0); Mean Corpuscular Hemoglobin 31.2 pg (27.0-33.0); Mean Platelet Volume 10.9 fL (9.4-12.3); Monocytes Absolute Auto 0.8 X10*3/uL (0.1-1.2); Monocytes Percent Auto 5.8 % (2-11); Neutrophils Absolute Auto 9.7 X10*3/uL (2.0-8.3); Neutrophils Percent Auto 68.1 % (45-73); Platelet Count 353 X10*3/uL (160-400); Red Blood Count 3.98 X10*6/uL (4.20-5.50); Red Cell Distribution Width 13.7 % (11.0-16.0); White Blood Count 14.2 X10*3/uL (4.8-10.8)
[2020-12-06 21:39] VITALS: BP 141/75; PULSE 96; RESP 20; O2SAT 100
[2020-12-06 21:40] LABS: COVID-19 Test Negative (Negative)
[2020-12-06 21:47] LABS: Anion Gap 12 (12-20); Blood Urea Nitrogen 7 mg/dL (9-16); Calcium 9.4 mg/dL (8.4-10.2); Carbon Dioxide 27 mmol/L (22-29); Chloride 109 mmol/L (96-108); Creatinine Clr Calc Pharmacy 87.5; Estimated Glomerular Filt Rate > 60; Glucose Random 106 mg/dL (60-115); Potassium 3.6 mmol/L (3.3-5.1); Sodium 144 mmol/L (135-145)
[2020-12-06 22:37] VITALS: BP 142/87; PULSE 91; RESP 20; TEMP 36.9; O2SAT 98
[2020-12-06] MEDS: guaiFEN/Codeine SF 200/20/10ML 10 ML LIQUID PO (22:44)
[2020-12-06] MEDS: Albuterol Sulfate (0.083%) 2.5 MG/3 ML VIAL.NEB 7.5 MG INHALE (22:46)
[2020-12-06 22:47] VITALS: PULSE 92; O2SAT 100
[2020-12-07 00:25] VITALS: BP 120/70; PULSE 87; RESP 17; TEMP 36.6; O2SAT 98
[2020-12-07] MEDS: Azithromycin 500 MG TABLET PO (00:26)
== END 2020-12-07 01:01 | disposition home or self-care (01) ==
PROVIDERS: Emergency Provider Internal Medicine
DX: J20.9 Acute bronchitis, unspecified (principal); R06.02 Shortness of breath; Z20.822 Contact with and (suspected) exposure to COVID-19; F12.90 Cannabis use, unspecified, uncomplicated
CPT/HCPCS: 36415; 71045; 80048; 85025; 87635; 94640; 94644; 94645; 96365; 96375; 99284; 99285; J2930; J3475

== ENCOUNTER 2020-12-19 12:52 | Emergency (ER) | payer MEDICARE, MEDICAID, SELFPAY ==
--- NOTE | ~2020-12-19 | XR_ITS ---
EXAMINATION: XR CHEST CLINICAL INFORMATION: Cough and. COMPARISON: Chest 05/27/2017 TECHNIQUE: Frontal view of the chest was obtained. FINDINGS: No significant abnormality is noted involving the heart, lungs, mediastinum, bony thorax or soft tissues. XR/XR chest 1V IMPRESSION: Unremarkable chest examination.
[2020-12-19 12:59] VITALS: BP 124/62; PULSE 94; RESP 26; TEMP 36.4; O2SAT 98; BMI 25.9
--- NOTE | 2020-12-19 13:07 | ECG_ITS ---
Test Reason : SHORTNESS OF BREATH Blood Pressure : / mmHG Vent. Rate : 098 BPM Atrial Rate : 098 BPM P-R Int : 128 ms QRS Dur : 066 ms QT Int : 364 ms P-R-T Axes : 057 020 031 degrees QTc Int : 464 ms Normal sinus rhythm with sinus arrhythmia Normal ECG When compared with ECG of 18-AUG-2020 15:21, No significant change was found Referred By: Prasad Roth Electronically Signed By:Jose Carlos Mason
[2020-12-19 13:09] VITALS: BP 124/62; PULSE 95; RESP 18; O2SAT 97
[2020-12-19] MEDS: Magnesium Sulfate/H2O 2 GM/50 ML PIGGYBACK IV (13:15)
--- NOTE | 2020-12-19 13:20 | ED_ITS ---
HPI - Asthma General Chief Complaint: Asthma Stated Complaint: sob/asthma Time Seen by Provider: 12/19/20 16:18 Source: patient Mode of arrival: ambulatory Limitations: no limitations History of Present Illness HPI Narrative: Patient presents to ED with coughing, shortness of breath, and wheezing for one month. Patient states was doing the some of the hot air exacerbates her asthma. Patient was seen last week for the same presentation. Patient give albuterol and nebulizer in the EMS truck. Patient denies any lower extremity swelling, chest pain, assisting p.o. control use, recent core and influenza, dizziness, or weakness. MD complaint: asthma attack Related Data Home Medications Medication Instructions Recorded Confirmed fluoxetine 20 mg PO DAILY 08/18/20 12/06/20 lorazepam 0.5 mg PO BID PRN 08/18/20 12/06/20 montelukast 10 mg PO BEDTIME 08/18/20 12/06/20 omeprazole 40 mg PO DAILY 08/18/20 12/06/20 oxcarbazepine 150 mg PO BID 08/18/20 12/06/20 Previous Rx's Medication Instructions Recorded naproxen 500 mg PO BID PRN #20 tab 09/28/20 albuterol sulfate 2.5 mg INHALATION Q4-6H PRN #90 ml 12/07/20 prednisone 40 mg PO DAILY #10 tab 12/07/20 budesonide-formoterol HFA 80 2 puff INHALATION BID #10.2 g 12/17/20 mcg-4.5 mcg/actuation aerosol inhaler fluconazole 50 mg tablet 50 mg PO DAILY #1 tab 12/17/20 Allergies Allergy/AdvReac Type Severity Reaction Status Date / Time amoxicillin [AMOXICILLIN] Allergy Unknown RASH Verified 12/06/20 20:33 cefuroxime [From CEFTIN] Allergy Unknown HIVES, Verified 12/06/20 20:33 ANAPHYLAXIS divalproex sodium Allergy Unknown TALKS Verified 12/06/20 20:33 [From DEPAKOTE] WEIRD Penicillins [PENICILLINS] Allergy Unknown HIVES Verified 12/06/20 20:33 Review of Systems Review of Systems: Yes all other systems are reviewed and are negative Constitutional: Constitutional: Reports as per HPI and Reports no additional constitutional complaints Eyes: Eyes: Reports as per HPI and Reports no additional eye complaints ENT: Reports system reviewed and no additional complaints, except as documented and Reports as per HPI Cardiovascular: Cardiovascular: Reports dyspnea Respiratory: Respiratory: Reports as per HPI, Reports cough and Reports dyspnea Gastrointestinal: Gastrointestinal: Reports as per HPI and Reports no additional gastrointestinal complaints Genitourinary: Genitourinary: Reports no additional female genitourinary complaints and Reports as per HPI Musculoskeletal: Musculoskeletal: Reports no additional musculoskeletal complaints and Reports as per HPI Neurologic: Reports system reviewed and no additional complaints, except as documented and Reports as per HPI Psychiatric: Psychiatric: Reports no additional psychiatric complaints and Reports as per HPI [facility] Past Medical History Medical History Asthma Depression No known health problems Social History Social History Alcohol intake: current Alcohol intake frequency: holidays/special occasions only Patient Tobacco Use Status: Never used Tobacco Substance Use Type: Marijuana Advance Directives: No Advance Directives Information Provided: Yes Physical Exam Vital Signs: Vital Signs: Last Vital Signs Temp 98.0 F 12/19/20 16:14 Pulse 107 H 12/19/20 16:14 Resp 19 12/19/20 16:14 BP 106/87 12/19/20 16:14 Pulse Ox 99 12/19/20 16:14 Body Mass Index 25.9 Const: General: cooperative, healthy appearing, comfortable, no acute distress, well developed, alert and awake Orientation/consciousness: patient oriented x3 HENMT: Head: Yes normal to inspection, Yes No palpable skull fracture present, Yes normocephalic, Yes atraumatic and No abrasion Eyes: General: appearance normal, both eyes and all related structures Neck: Neck: Yes normal visual inspection, Yes full ROM, Yes no lymphadenopathy, Yes no meningeal signs, Yes trachea midline, Yes supple and No tender Chest: Chest palpation & inspection: normal inspection of the chest and normal palpation of entire chest wall Resp: Effort & Inspection: normal respiratory effort, able to speak in complete sentences and abnormal respiratory pattern Auscultation: wheezes Cardio: Jugular venous distension: no JVD Heart sounds: S1 normal heart sound present and S2 normal heart sound present GI: Inspection: Yes normal to inspection and No abdominal wall ecchymosis Palpation (GI): Soft to palpation, not firm, nontender, no guarding and not rigid : General: No CVA tenderness and Yes no CVA tenderness Back/Spine/Pelvis: Back: no CVA tenderness, No CVA tenderness and No back t enderness Skin: General skin exam: no rashes or lesions noted and elasticity normal Neuro: General: patient oriented x3, gait normal, no meningeal signs and CN's II-XI intact bilaterally Extrem: Other: Negative for any lower extremity, swelling, pitting, redness, or calf tenderness General: Yes normal to inspection and Yes full ROM Psych: Appearance: grossly normal, well kempt and not disheveled Course Course Course Narrative: Patient worked up for asthma exacerbation patient will be labs done including troponin and COVID swab Reevaluation(s) Reevaluation #1: Patient EKG and troponin were normal. X-ray negative for pneumonia. COVID swab is negative. Patient O2 saturation maintained above 95%. Patient D-dimer is negative. Perc score is 0. Patient will be discharged. Patient was informed possibly need to follow-up with ENT for evaluation of postnasal drip and she states she really have appointment with ENT for evaluation for postnasal drip. Patient already have oxycodone and Tessalon Perles cough. Patient mother then made her realize probably coughing and wheezing due to carpet. Patient prior apartment had no carpet and was fine but she moved into a new apartment this past month which carpet and ever since she has been coughing with wheezing. Patient states she will look into that. Time: 15:40 MDM - Asthma MDM Narrative Medical decision making narrative: Asthma. Cough. Lab Data Result diagrams: 12/19/20 13:23 12/19/20 13:23 Labs: Lab Results 12/19/20 12/19/20 12/19/20 Range/Units 13:18 13:23 13:23 WBC 16.2 H (4.8-10.8) X10*3/uL RBC 3.95 L (4.20-5.50) X10*6/uL Hgb 12.1 (12.0-16.0) g/dl Hct 37.3 (37-47) % MCV 94.4 (80-98) fL MCH 30.6 (27.0-33.0) pg MCHC 32.4 (31.0-35.0) g/dl RDW 13.9 (11.0-16.0) % Plt Count 315 (160-400) X10*3/uL MPV 10.6 (9.4-12.3) fL Immature Gran % (Auto) 0.5 H (0.0-0.4) % Neut % (Auto) 68.6 (45-73) % Lymph % (Auto) 23.3 (20-40) % [place] % (Auto) 6.8 (2-11) % Eos % (Auto) 0.6 (0-4) % Baso % (Auto) 0.2 (0-2) % Lymph # (Auto) 3.8 (1.2-4.9) X10*3/uL [place] # (Auto) 1.1 (0.1-1.2) X10*3/uL Eos # (Auto) 0.1 (0.0-0.4) X10*3/uL Baso # (Auto) 0.0 (0.0-0.2) X10*3/uL Abs Immat Gran (auto) 0.08 H (0.00-0.03) X10*3/uL Absolute Neuts (auto) 11.1 H (2.0-8.3) X10*3/uL Absolute Nucleated RBC 0.000 (0.0-0.012) X10*3/uL Nucleated RBC % (auto) 0.0 (0.0-0.2) /100WBC PT (9.9-13.0) SEC INR (0.9-1.1) APTT (24.1-38.0) SEC D-Dimer NG/ML Sodium 142 (135-145) mmol/L Potassium 3.7 (3.3-5.1) mmol/L Chloride 110 H (96-108) mmol/L Carbon Dioxide 25 (22-29) mmol/L Anion Gap 11 L (12-20) BUN 10 (9-16) mg/dL Creatinine 0.78 (0.5-1.4) mg/dL Estim Creat Clear Calc 93.8 Estimated GFR > 60 Random Glucose 112 (60-115) mg/dL Calcium 8.8 D (8.4-10.2) mg/dL Total Bilirubin 0.4 (0.0-1.0) mg/dL AST 14 (5-31) U/L ALT 18 (0-31) U/L Alkaline Phosphatase 82 (39-117) U/L Troponin I High Sens (<3.5-17.0) ng/L B-Natriuretic Peptide (<100) pg/mL Total Protein 6.2 L (6.5-8.0) g/dL Albumin 3.7 (3.5-5.0) g/dL Beta HCG, Quant mIU/mL Coronavirus (PCR) NEGATIVE (Negative) Influenza Type A (PCR) NEGATIVE (Negative) Influenza Type B (PCR) NEGATIVE (Negative) RSV RNA Qual (PCR) NEGATIVE (Negative) 12/19/20 12/19/20 12/19/20 Range/Units 13:23 13:23 13:23 WBC (4.8-10.8) X10*3/uL RBC (4.20-5.50) X10*6/uL Hgb (12.0-16.0) g/dl Hct (37-47) % MCV (80-98) fL MCH (27.0-33.0) pg MCHC (31.0-35.0) g/dl RDW (11.0-16.0) % Plt Count (160-400) X10*3/uL MPV (9.4-12.3) fL Immature Gran % (Auto) (0.0-0.4) % Neut % (Auto) (45-73) % Lymph % (Auto) (20-40) % [place] % (Auto) (2-11) % Eos % (Auto) (0-4) % Baso % (Auto) (0-2) % Lymph # (Auto) (1.2-4.9) X10*3/uL [place] # (Auto) (0.1-1.2) X10*3/uL Eos # (Auto) (0.0-0.4) X10*3/uL Baso # (Auto) (0.0-0.2) X10*3/uL Abs Immat Gran (auto) (0.00-0.03) X10*3/uL Absolute Neuts (auto) (2.0-8.3) X10*3/uL Absolute Nucleated RBC (0.0-0.012) X10*3/uL Nucleated RBC % (auto) (0.0-0.2) /100WBC PT 10.8 (9.9-13.0) SEC INR 1.0 (0.9-1.1) APTT 32.5 (24.1-38.0) SEC D-Dimer < 200 NG/ML Sodium (135-145) mmol/L Potassium (3.3-5.1) mmol/L Chloride (96-108) mmol/L Carbon Dioxide (22-29) mmol/L Anion Gap (12-20) BUN (9-16) mg/dL Creatinine (0.5-1.4) mg/dL Estim Creat Clear Calc Estimated GFR Random Glucose (60-115) mg/dL Calcium (8.4-10.2) mg/dL Total Bilirubin (0.0-1.0) mg/dL AST (5-31) U/L ALT (0-31) U/L Alkaline Phosphatase (39-117) U/L Troponin I High Sens < 3.5 (<3.5-17.0) ng/L B-Natriuretic Peptide 88 (<100) pg/mL Total Protein (6.5-8.0) g/dL Albumin (3.5-5.0) g/dL Beta HCG, Quant < 2 mIU/mL Coronavirus (PCR) (Negative) Influenza Type A (PCR) (Negative) Influenza Type B (PCR) (Negative) RSV RNA Qual (PCR) (Negative) ECG Data Interpretation: Normal sinus rhythm. Reticular rate 98. Parent low 128. QRS 86. QTC 464. Negative STEMI Discharge Plan Discharge Clinical Impression: Chronic cough, Asthma Patient Disposition: Home, Self-Care Instructions: Asthma (ED), Chronic Cough (ED) Additional Instructions: Continue taking med you are prescribed from prior ED visit. Recommend follow-up with PCP and ENT for possible postnasal drip. Return to the ED immediately for any chest pain, shortness of breath, swelling of lower extremities, calf pain, coughing up blood, fever, chills, weakness, dizziness, or any other concerning symptoms. Your COVID swab came back negative. A blood test for your heart and EKG was negative for Heart attack. BNP came back negative for congestive heart failure. He came back negative for . Blood test D-dimer came back negative for risk of blood clot. Chest x-ray negative for pneumonia. Prescriptions: No Action oxcarbazepine 150 mg tablet 150 mg PO BID RF: 0 omeprazole 40 mg capsule,delayed release(DR/EC) 40 mg PO DAILY RF: 0 lorazepam 0.5 mg tablet 0.5 mg PO BID PRN (Reason: Anxiety) RF: 0 montelukast 10 mg tablet 10 mg PO BEDTIME RF: 0 fluoxetine 20 mg capsule 20 mg PO DAILY RF: 0 naproxen 500 mg tablet 500 mg PO BID PRN (Reason: pain) Qty: 20 RF: 0 prednisone 20 mg tablet 40 mg PO DAILY Qty: 10 RF: 0 albuterol sulfate 2.5 mg /3 mL (0.083 %) solution for nebulization 2.5 mg inhalation Q4-6H PRN (Reason: shortness of breath or wheezing) Qty: 90 RF: 0 budesonide-formoterol [Symbicort] 80-4.5 mcg/actuation HFA aerosol inhaler 2 puff inhalation BID Qty: 10.2 RF: 0 fluconazole [Diflucan] 50 mg tablet 50 mg PO DAILY Qty: 1 RF: 0 Print Language: A[place]i
[2020-12-19 13:31] LABS: MANUAL DIFF FLAG NO
[2020-12-19 13:37] LABS: Basophils Percent Auto 0.2 % (0-2); Eosinophils Absolute Auto 0.1 X10*3/uL (0.0-0.4); Eosinophils Percent Auto 0.6 % (0-4); Hematocrit 37.3 % (37-47); Hemoglobin 12.1 g/dl (12.0-16.0); Imm Gran Abs Auto 0.08 X10*3/uL (0.00-0.03); Imm Gran Pct Auto 0.5 % (0.0-0.4); Lymphocytes Absolute Auto 3.8 X10*3/uL (1.2-4.9); Lymphocytes Percent Auto 23.3 % (20-40); Mean Corpuscular HGB Conc 32.4 g/dl (31.0-35.0); Mean Corpuscular Hemoglobin 30.6 pg (27.0-33.0); Mean Corpuscular Volume 94.4 fL (80-98); Mean Platelet Volume 10.6 fL (9.4-12.3); Monocytes Absolute Auto 1.1 X10*3/uL (0.1-1.2); Monocytes Percent Auto 6.8 % (2-11); Neutrophils Absolute Auto 11.1 X10*3/uL (2.0-8.3); Neutrophils Percent Auto 68.6 % (45-73); Platelet Count 315 X10*3/uL (160-400); Red Blood Count 3.95 X10*6/uL (4.20-5.50); Red Cell Distribution Width 13.9 % (11.0-16.0); White Blood Count 16.2 X10*3/uL (4.8-10.8)
[2020-12-19] MEDS: Albuterol Sulfate (0.083%) 2.5 MG/3 ML VIAL.NEB 7.5 MG INHALE (13:40)
[2020-12-19 13:47] LABS: Prothrombin Time 10.8 SEC (9.9-13.0)
[2020-12-19 13:50] LABS: Partial Thromboplastin Time 32.5 SEC (24.1-38.0)
[2020-12-19 13:52] VITALS: PULSE 89; O2SAT 98
[2020-12-19 13:58] LABS: Alanine Aminotransferase 18 U/L (0-31); Albumin Level 3.7 g/dL (3.5-5.0); Alkaline Phosphatase 82 U/L (39-117); Anion Gap 11 (12-20); Aspartate Amino Transferase 14 U/L (5-31); Bilirubin Total 0.4 mg/dL (0.0-1.0); Blood Urea Nitrogen 10 mg/dL (9-16); Calcium 8.8 mg/dL (8.4-10.2); Carbon Dioxide 25 mmol/L (22-29); Chloride 110 mmol/L (96-108); Creatinine Clr Calc Pharmacy 93.8; Estimated Glomerular Filt Rate > 60; Glucose Random 112 mg/dL (60-115); Potassium 3.7 mmol/L (3.3-5.1); Sodium 142 mmol/L (135-145); Total Protein 6.2 g/dL (6.5-8.0)
[2020-12-19 14:04] LABS: B Type Natriuretic Peptide 88 pg/mL (<100)
[2020-12-19 14:05] LABS: HCG Quantitative < 2 mIU/mL
[2020-12-19 14:26] LABS: Influenza A PCR NEGATIVE (Negative); Influenza B PCR NEGATIVE (Negative); Resp Syncy Virus RNA Qual PCR NEGATIVE (Negative); SARS COV2 PCR INHOUSE NEGATIVE (Negative)
[2020-12-19 14:32] VITALS: BP 116/65; PULSE 95; RESP 16; O2SAT 98
[2020-12-19 14:50] LABS: D Dimer < 200 NG/ML; Troponin-I High Sensitivity < 3.5 ng/L (<3.5-17.0)
[2020-12-19 16:14] VITALS: BP 106/87; PULSE 107; RESP 19; TEMP 36.7; O2SAT 99
== END 2020-12-19 17:17 | disposition home or self-care (01) ==
PROVIDERS: Physician Assistant; Emergency Provider Internal Medicine
DX: R05 Cough (principal); J45.909 Unspecified asthma, uncomplicated; Z79.899 Other long term (current) drug therapy; Z20.822 Contact with and (suspected) exposure to COVID-19
CPT/HCPCS: 0241U; 36415; 71045; 80053; 83880; 84484; 84702; 85025; 85379; 85610; 85730; 93005; 94640; 94644; 96365; 96366; 99284; J3475

== ENCOUNTER 2021-02-11 10:57 | Emergency (ER) | payer MEDICARE, MEDICAID, SELFPAY ==
[2021-02-11 11:10] VITALS: BP 125/80; BP 130/84; PULSE 83; PULSE 90; RESP 17; TEMP 36.9; O2SAT 98; O2SAT 99
--- NOTE | 2021-02-11 11:16 | ED.GENADULT ---
HPI - General Adult General Chief complaint: General Medical Stated complaint: ALLERGIC RX/RASH S/P 2ND MODERNA COVID VACC Time Seen by Provider: 02/11/21 11:08 Source: patient and EMS Mode of arrival: EMS Limitations: no limitations History of Present Illness HPI narrative: 35 y/o female with history of asthma presents to the ER via EMS with sore throat, facial rash and lethargy after she received her 2nd Moderna vaccination at [place] this morning at 10am. She reports right after getting the shot she felt dizzy and unwell. Shortly after she developed a sore throat that she did not have when she woke up this morning. She denies throat, tongue or lip swelling. No difficulty swallowing. MD complaint: adverse side effect of vaccination Onset (ago): hour(s) Location: face, mouth and neck Radiation: non-radiation Severity: moderate Quality: aching Pain Consistency: constant Relieving factors: none Exacerbating factors: none Associated symptoms: malaise Treatments prior to arrival: none Related Data Home Medications Medication Instructions Recorded Confirmed fluoxetine 20 mg capsule 20 mg PO DAILY 08/18/20 12/21/20 lorazepam 0.5 mg tablet 0.5 mg PO BID PRN 08/18/20 12/21/20 montelukast 10 mg tablet 10 mg PO BEDTIME 08/18/20 12/21/20 omeprazole 40 mg capsule,delayed 40 mg PO DAILY 08/18/20 12/21/20 release oxcarbazepine 150 mg tablet 150 mg PO BID 08/18/20 12/21/20 Previous Rx's Medication Instructions Recorded naproxen 500 mg tablet 500 mg PO BID PRN #20 tab 09/28/20 albuterol sulfate 2.5 mg INHALATION Q4-6H PRN #90 ml 12/07/20 prednisone 20 mg tablet 40 mg PO DAILY #10 tab 12/07/20 budesonide-formoterol HFA 80 2 puff INHALATION BID #10.2 g 12/17/20 mcg-4.5 mcg/actuation aerosol inhaler (Symbicort) fluconazole 50 mg tablet (Diflucan) 50 mg PO DAILY #1 tab 12/17/20 Allergies Allergy/AdvReac Type Severity Reaction Status Date / Time amoxicillin [AMOXICILLIN] Allergy Unknown RASH Verified 12/21/20 14:11 cefuroxime [From CEFTIN] Allergy Unknown HIVES, Verified 12/21/20 14:11 ANAPHYLAXIS divalproex sodium Allergy Unknown TALKS Verified 12/21/20 14:11 [From DEPAKOTE] WEIRD Penicillins [PENICILLINS] Allergy Unknown HIVES Verified 12/21/20 14:11 Review of Systems Review of Systems: Constitutional: No Fever, No Chills ENT/Mouth: + sore throat, No Rhinorrhea, No Swallowing Difficulty Eyes: No Eye Pain, No Swelling, No Redness Cardiovascular: No Chest Pain, No SOB, No Orthopnea, No Edema Respiratory: No Cough, No Sputum, No Wheezing, No dyspnea Gastrointestinal: No Nausea, No Vomiting, No Diarrhea, No abdominal Pain Genitourinary: No Dysuria, No Urinary Frequency, No Hematuria Musculoskeletal: No joint pain, + Myalgias Skin: No Skin Lesions, + rash Neuro: + Weakness (generalized), No Numbness, + Dizziness, No Headache Psych: No Anxiety/Panic, No Depression Heme/Lymph: No Bruising, No Lymphadenopathy Endocrine: No Polyuria, No Polydipsia PMFSH Past Medical History Medical History Asthma Depression No known health problems Social History Social History Alcohol intake: never Patient Tobacco Use Status: Never used Tobacco Use of substances other than those prescribed or required for medical reasons: No Substance Use Type: Marijuana Advance Directives: No Advance Directives Information Provided: No Patient : No Physical Exam Vital Signs: Vital Signs: Last Vital Signs Temp 98.5 F 02/11/21 11:10 Pulse 73 02/11/21 12:19 Resp 18 02/11/21 12:19 BP 123/80 02/11/21 12:19 Pulse Ox 98 02/11/21 12:19 Body Mass Index 0.0 Appearance: Sleepy. Oriented X3. No acute distress. Head/face: Eyes: Pupils equal, round and reactive to light. ENT: Pharynx normal. Neck: Normal inspection. Neck supple. CVS: Normal heart rate and rhythm. Pulses normal. Respiratory: No respiratory distress. Breath sounds normal. Abdomen: Soft and nontender. +BS x4 Skin: Skin warm and dry. Normal skin color. Normal skin turgor. No rashes. Extremities: No lower extremity edema. Neuro: Oriented X 3. No motor deficit. No sensory deficit. Walks with slow but steady gait Course Course Course Narrative: 35 y/o female presenting with dizziness, sore throat, and lethargy after her 2nd COVID vaccine earlier today. She also has a slight rash on her face, not itchy or painful. She is speaking in clear sentences with nonfocal neuro exam, although she is sleepy. Her biggest complaint is sore throat - normal voice, no sensation of throat swelling. Drinking normally. Will give tylenol. will continue to monitor for a bit in the ER for evoluation of symptoms. Reevaluation(s) Reevaluation #1: Patient remains stable. Ambulated to the bathroom. Her family member is at the bedside - reports very sensitive to medications. She is going to take her home to be monitored today. Comfortable with d/c home. She will f/u with [facility] this week. Critical Care Time Critical Care Time Critical Care Time: No Discharge Plan Discharge Clinical Impression: Adverse reaction to COVID-19 vaccine Patient Disposition: Home, Self-Care Additional Instructions: Rest and stay hydrated Stay with your family member today for monitoring Take Motrin and/or Tylenol as needed for body aches and fevers Follow up with your doctor this week If you develop new or worsening symptoms call 911 or come back to the ER for further evaluation. Prescriptions: No Action oxcarbazepine 150 mg tablet 150 mg PO BID RF: 0 omeprazole 40 mg capsule,delayed release(DR/EC) 40 mg PO DAILY RF: 0 lorazepam 0.5 mg tablet 0.5 mg PO BID PRN (Reason: Anxiety) RF: 0 montelukast 10 mg tablet 10 mg PO BEDTIME RF: 0 fluoxetine 20 mg capsule 20 mg PO DAILY RF: 0 naproxen 500 mg tablet 500 mg PO BID PRN (Reason: pain) Qty: 20 RF: 0 prednisone 20 mg tablet 40 mg PO DAILY Qty: 10 RF: 0 albuterol sulfate 2.5 mg /3 mL (0.083 %) solution for nebulization 2.5 mg inhalation Q4-6H PRN (Reason: shortness of breath or wheezing) Qty: 90 RF: 0 budesonide-formoterol [Symbicort] 80-4.5 mcg/actuation HFA aerosol inhaler 2 puff inhalation BID Qty: 10.2 RF: 0 fluconazole [Diflucan] 50 mg tablet 50 mg PO DAILY Qty: 1 RF: 0
[2021-02-11] MEDS: Acetaminophen 325 MG TABLET 650 MG PO (11:32)
--- NOTE | 2021-02-11 12:16 | PC.NURSE ---
PT WALKED TO BATHROOM. PT ASKING TO GO HOME. PA,ERICK AWARE AT THIS TIME.
[2021-02-11 12:19] VITALS: BP 123/80; PULSE 73; RESP 18; O2SAT 98
== END 2021-02-11 13:15 | disposition home or self-care (01) ==
PROVIDERS: Emergency Provider Emergency Medicine Emergency Medical Services
DX: R21 Rash and other nonspecific skin eruption (principal); T50.B95A Adverse effect of other viral vaccines, initial encounter; Y92.9 Unspecified place or not applicable; Z79.899 Other long term (current) drug therapy
CPT/HCPCS: 99283; 99284

== ENCOUNTER 2021-02-13 18:34 | Emergency (ER) | payer OTHER, MEDICARE, MEDICAID, SELFPAY ==
[2021-02-13 18:42] VITALS: BP 106/73; PULSE 90; RESP 16; TEMP 37; O2SAT 98; BMI 36.1
--- NOTE | 2021-02-13 20:15 | PC.NURSE ---
pt to room.
[2021-02-13 20:55] VITALS: BP 121/79; PULSE 76; RESP 16; TEMP 36.3; O2SAT 100
[2021-02-13 21:08] LABS: Basophils Percent Auto 0.3 % (0-2); Eosinophils Absolute Auto 0.3 X10*3/uL (0.0-0.4); Eosinophils Percent Auto 2.7 % (0-4); Hematocrit 37.7 % (37-47); Hemoglobin 12.6 g/dl (12.0-16.0); Imm Gran Abs Auto 0.04 X10*3/uL (0.00-0.03); Imm Gran Pct Auto 0.4 % (0.0-0.4); Lymphocytes Absolute Auto 2.7 X10*3/uL (1.2-4.9); Lymphocytes Percent Auto 25.1 % (20-40); MANUAL DIFF FLAG NO; Mean Corpuscular HGB Conc 33.4 g/dl (31.0-35.0); Mean Corpuscular Hemoglobin 31.2 pg (27.0-33.0); Mean Corpuscular Volume 93.3 fL (80-98); Mean Platelet Volume 10.7 fL (9.4-12.3); Monocytes Absolute Auto 1.1 X10*3/uL (0.1-1.2); Monocytes Percent Auto 9.7 % (2-11); Neutrophils Absolute Auto 6.7 X10*3/uL (2.0-8.3); Neutrophils Percent Auto 61.8 % (45-73); Platelet Count 291 X10*3/uL (160-400); Red Blood Count 4.04 X10*6/uL (4.20-5.50); Red Cell Distribution Width 13.1 % (11.0-16.0); White Blood Count 10.9 X10*3/uL (4.8-10.8)
[2021-02-13 21:28] LABS: Alanine Aminotransferase 18 U/L (0-31); Albumin Level 4.3 g/dL (3.5-5.0); Alkaline Phosphatase 78 U/L (39-117); Anion Gap 12 (12-20); Aspartate Amino Transferase 18 U/L (5-31); Bilirubin Direct < 0.2 mg/dL (0.0-0.5); Bilirubin Total 0.3 mg/dL (0.0-1.0); Blood Urea Nitrogen 11 mg/dL (9-16); Calcium 9.7 mg/dL (8.4-10.2); Carbon Dioxide 28 mmol/L (22-29); Chloride 107 mmol/L (96-108); Estimated Glomerular Filt Rate > 60; Glucose Random 86 mg/dL (60-115); Lipase 51 U/L (8-78); Potassium 4.3 mmol/L (3.3-5.1); Sodium 143 mmol/L (135-145)
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
== END 2021-02-13 22:15 | disposition home or self-care (01) ==
PROVIDERS: Emergency Provider Emergency Medicine Emergency Medical Services
DX: S13.4XXA Sprain of ligaments of cervical spine, initial encounter (principal); S06.0X9A Concussion with loss of consciousness of unspecified duration, initial encounter; S29.012A Strain of muscle and tendon of back wall of thorax, initial encounter; M54.5 Low back pain; F12.90 Cannabis use, unspecified, uncomplicated; V43.52XA Car driver injured in collision with other type car in traffic accident, initial encounter; Y93.9 Activity, unspecified; Y92.410 Unspecified street and highway as the place of occurrence of the external cause; Y99.9 Unspecified external cause status; Z79.899 Other long term (current) drug therapy
CPT/HCPCS: 36415; 80048; 80076; 83690; 85025; 99283

== ENCOUNTER 2021-04-11 21:34 | Emergency (ER) | payer MEDICARE, MEDICAID, SELFPAY ==
--- NOTE | ~2021-04-11 | XR_ITS ---
EXAMINATION: XR CHEST CLINICAL INFORMATION: Shortness of breath, cough, chest pain. Rule out pneumonia. COMPARISON: Chest radiograph dated from 12/19/2020. TECHNIQUE: 2 views of the chest were obtained. FINDINGS: No significant abnormality is noted involving the heart, lungs, mediastinum, bony thorax or soft tissues. XR/XR chest 2V IMPRESSION: No acute cardiopulmonary findings.
[2021-04-11 21:46] VITALS: BP 124/75; PULSE 88; RESP 16; TEMP 36.6; O2SAT 99; BMI 24.5
--- NOTE | 2021-04-11 21:58 | ED_ITS ---
HPI - SOB/Dyspnea General Chief Complaint: Dyspnea Stated Complaint: difficulty breathing Time Seen by Provider: 04/11/21 21:37 Source: patient Mode of arrival: EMS Limitations: no limitations History of Present Illness HPI Narrative: 35-year-old female who was brought to the emergency department by ambulance for evaluation of difficulty breathing. The patient states she has been having trouble breathing approximately 3 days. She states she has a history of asthma. She has been feeling short of breath, she has been wheezing. She states she has right-sided chest pain which is a sharp pain which is constant but worse with breathing and with coughing. She states she has a cough which is nonproductive. She has been using her albuterol inhaler every 3 hours and her albuterol nebulizer every 3 hours without any relief for symptoms. She became more short of breath prior to coming to the emergency department therefore she called an ambulance. In route to the hospital she was given a DuoNeb. The patient states that she was hospitalized for asthma last winter. She states that she was intubated as a child but has not been intubated as an adult. She denied fever, chills, nausea, vomiting, sore throat, myalgias, arthralgias, diarrhea, loss of sense of taste and smell. She states that she has received a 2 shot COVID-19 vaccination. Related Data Home Medications Medication Instructions Recorded Confirmed fluoxetine 20 mg capsule 20 mg PO DAILY 08/18/20 12/21/20 lorazepam 0.5 mg tablet 0.5 mg PO BID PRN 08/18/20 12/21/20 montelukast 10 mg tablet 10 mg PO BEDTIME 08/18/20 12/21/20 omeprazole 40 mg capsule,delayed 40 mg PO DAILY 08/18/20 12/21/20 release oxcarbazepine 150 mg tablet 150 mg PO BID 08/18/20 12/21/20 Previous Rx's Medication Instructions Recorded naproxen 500 mg tablet 500 mg PO BID PRN #20 tab 09/28/20 albuterol sulfate 2.5 mg (3 mL) INHALATION Q4-6H PRN 12/07/20 #90 ml prednisone 20 mg tablet 40 mg PO DAILY #10 tab 12/07/20 budesonide-formoterol HFA 80 2 puff INHALATION BID #10.2 g 12/17/20 mcg-4.5 mcg/actuation aerosol inhaler (Symbicort) fluconazole 50 mg tablet (Diflucan) 50 mg PO DAILY #1 tab 12/17/20 cyclobenzaprine 10 mg tablet 10 mg PO TID PRN #14 tab 02/13/21 naproxen 500 mg tablet 500 mg PO BID PRN #30 tab 02/13/21 ondansetron HCl 4 mg tablet 4 mg PO Q8H PRN #14 tab 02/13/21 (Zofran) azithromycin 250 mg tablet See Rx Instructions .ROUTE 04/12/21 (Zithromax Z-Olman) .COMPLEX #6 tab prednisone 20 mg tablet 60 mg PO DAILY 5 Days #15 tab 04/12/21 Allergies Allergy/AdvReac Type Severity Reaction Status Date / Time amoxicillin [AMOXICILLIN] Allergy Unknown RASH Verified 12/21/20 14:11 cefuroxime [From CEFTIN] Allergy Unknown HIVES, Verified 12/21/20 14:11 ANAPHYLAXIS divalproex sodium Allergy Unknown TALKS Verified 12/21/20 14:11 [From DEPAKOTE] WEIRD Penicillins [PENICILLINS] Allergy Unknown HIVES Verified 12/21/20 14:11 Review of Systems Review of Systems: Yes all other systems are reviewed and are negative [facility] Past Medical History [facility] Narrative: Past medical history: Asthma, depression, anxiety. Past surgical history: None. Social history:. The patient denies tobacco use. She states she drinks alcohol occasionally. She occasionally smokes marijuana but denies any other drug use. Medical History Asthma Depression No known health problems Social History Social History Alcohol intake: never Patient Tobacco Use Status: Never used Tobacco Substance Use Type: Marijuana Advance Directives: No Advance Directives Information Provided: No Physical Exam Vital Signs: Vital Signs: Last Vital Signs Temp 98 F 04/11/21 21:46 Pulse 117 H 04/12/21 01:50 ED T Resp 22 H 04/12/21 01:50 ED T BP 128/72 04/12/21 01:50 ED T Pulse Ox 98 04/12/21 01:50 ED T Body Mass Index 24.5 Const: Other: Very pleasant and cooperative female patient, she does appear to be anxious, she is able answer all questions full sentences, she does not appear to be in respiratory distress. HENMT: Head: Yes normal to inspection, Yes normocephalic and Yes atraumatic Ears: external ears normal General nose exam: Normal external nose present Face and sinus: Yes normal facial exam Mouth: Normal oral and palatal mucosa present Throat: Yes posterior oropharynx normal Eyes: General: appearance normal, both eyes and all related structures Pupils: Equal, round and reactive pupils present Neck: Neck: Yes normal visual inspection, Yes no lymphadenopathy, Yes trachea midline and Yes supple Chest: Chest palpation & inspection: normal inspection of the chest and tenderness (Diffuse anterior wall tenderness) Resp: Other: Patient has a normal respiratory effort, breath sounds symmetric bilaterally, she has diffuse wheezing, there is no rhonchi or rales. Cardio: Rate: regular rate Rhythm: regular rhythm Heart sounds: S1 normal heart sound present, S2 normal heart sound present and no murmurs GI: Inspection: Yes normal to inspection Palpation (GI): Soft to palpation, nontender and no guarding Auscultation: normal bowel sounds : General: Yes no CVA tenderness Back/Spine/Pelvis: Back: no CVA tenderness Skin: General skin exam: no rashes or lesions noted Neuro: Cranial nerves: Yes CN's II-XII intact bilaterally and Yes Equal, round and reactive pupils present Cognition (Neuro): normal cognition Motor exam (neuro): 5/5 motor strength present throughout Extrem: General: Yes normal to inspection Psych: Appearance: grossly normal Speech and movement: Normal speech and movement present Affect: normal affect Attitude: cooperative Thought process: Normal thought process present Thought content: Normal thought content present Course Course Course Narrative: 35-year-old female who presents emergency department for evaluation of shortness of breath, cough, chest pain x3 days. Patient does have a history of asthma and she states she was hospitalized 1 year prior, she has never been intubated as an adult was intubated as a child for asthma. The patient has been using her albuterol inhaler and albuterol nebulizer every 3 hours with only minimal improvement of her symptoms. Patient was brought to the emergency department by ambulance and did receive a DuoNeb in route. Initial vital signs were normal. Physical examination did reveal anterior chest wall tenderness and lung exam revealed diffuse wheezing with no rhonchi or rales. Patient was ordered to get Solu-Medrol 125 mg IV, magnesium 2 g IV and albuterol nebulizer 10 mg over 1 hour. 2339: Patient's chest x-ray revealed no evidence of pneumonia patient still has significant wheezing and is unable to take a deep breath without coughing. I ordered a DuoNeb on the patient. 224: Laboratory evaluation [place] [id number] with a normal H&H of 12.1 and 37.5. Comprehensive metabolic panel revealed a low potassium 2.9, this is most likely secondary to the albuterol treatment that she received. Bicarb was slightly low at 20. Glucose was elevated 140. 0105: The patient is feeling better after the 2nd nebulizer treatment. She did develop some anxiety was treated with Ativan 1 mg IV. Lung examination is significantly improved, she still has a cough however. The patient will be treated with Zithromax Z-Olman. She was given her 1st dose of Zithromax 500 mg orally. She was also given a prescription for prednisone 60 mg once a day for 5 days. She was given verbal and printed instructions and discharged home. MDM - SOB/Dyspnea Lab Data Result diagrams: 04/11/21 22:57 04/11/21 22:57 Labs: Lab Results 04/11/21 04/11/21 04/11/21 Range/Units 22:57 22:57 22:57 WBC 16.8 H (4.8-10.8) X10*3/uL RBC 3.97 L (4.20-5.50) X10*6/uL Hgb 12.1 (12.0-16.0) g/dl Hct 37.5 (37.0-47.0) % MCV 94.5 (80.0-98.0) fL MCH 30.5 (27.0-33.0) pg MCHC 32.3 (31.0-35.0) g/dl RDW 13.2 (11.0-16.0) % Plt Count 318 (160-400) X10*3/uL MPV 10.7 (9.4-12.3) fL Immature Gran % (Auto) 0.3 (0.0-0.4) % Neut % (Auto) 59.6 (45-73) % Lymph % (Auto) 33.4 (20-40) % [place] % (Auto) 5.9 (2-11) % Eos % (Auto) 0.6 (0-4) % Baso % (Auto) 0.2 (0-2) % Lymph # (Auto) 5.6 H (1.2-4.9) X10*3/uL [place] # (Auto) 1.0 (0.1-1.2) X10*3/uL Eos # (Auto) 0.1 (0.0-0.4) X10*3/uL Baso # (Auto) 0.0 (0.0-0.2) X10*3/uL Abs Immat Gran (auto) 0.05 H (0.00-0.03) X10*3/uL Absolute Neuts (auto) 10.0 H (2.0-8.3) x10*3/uL Absolute Nucleated RBC 0.000 (0.0-0.012) X10*3/uL Nucleated RBC % (auto) 0.0 (0.0-0.2) /100WBC Smear Tech's Comments VERIFIED Sodium 140 (135-145) mmol/L Potassium 2.9 L D (3.3-5.1) mmol/L Chloride 108 (96-108) mmol/L Carbon Dioxide 20 L (22-29) mmol/L Anion Gap 15 (12-20) BUN 11 (9-16) mg/dL Creatinine 0.81 (0.5-1.4) mg/dL Estim Creat Clear Calc 85.0 Estimated GFR > 60 Random Glucose 140 H (60-115) mg/dL Lactic Acid 2.0 (0.5-2.0) mmol/L Calcium 8.8 D (8.4-10.2) mg/dL Total Bilirubin 0.2 (0.0-1.0) mg/dL AST 19 (5-31) U/L ALT 23 (0-31) U/L Alkaline Phosphatase 81 (39-117) U/L Total Protein 6.4 L (6.5-8.0) g/dL Albumin 4.0 (3.5-5.0) g/dL Critical Care Time Critical Care Time Total Critical Care Time: 35 Attestation: Critical Care: The patient was critically ill with a high probability of imminent or life threatening deterioration. I spent greater than 30 minutes of discontinuous time evaluating the patient,delivering critical care at the bedside, discussing and evaluating pertinent data with consultants. Critical care time does not include time spent performing separately billable procedures or teaching. Total time spent performing critical care was 35 minutes. Discharge Plan Discharge Clinical Impression: Bronchitis, Anxiety Asthma exacerbation Qualifiers: Asthma severity: severe Asthma persistence: unspecified Qualified Code(s): J45.901 - Unspecified asthma with (acute) exacerbation Patient Disposition: Home, Self-Care Instructions: Asthma (ED), Acute Bronchitis (ED) Additional Instructions: Take prednisone 20 mg pills, 3 pills once a day for 5 days. Take Zithromax Z-Olman as prescribed take your next dose tomorrow evening and take day 1 Follow-up with your doctor in 2 days. Please return to the emergency department if your symptoms get worse or if you develop any symptoms that are concerning to you. Prescriptions: New azithromycin [Zithromax Z-Olman] 250 mg tablet See Rx Instructions .ROUTE .COMPLEX Qty: 6 RF: 0 prednisone 20 mg tablet 60 mg PO DAILY 5 Days Qty: 15 RF: 0 No Action cyclobenzaprine 10 mg tablet 10 mg PO TID PRN (Reason: muscle spasm) Qty: 14 RF: 0 naproxen 500 mg tablet 500 mg PO BID PRN (Reason: pain) Qty: 30 RF: 0 ondansetron HCl [Zofran] 4 mg tablet 4 mg PO Q8H PRN (Reason: nausea and vomiting) Qty: 14 RF: 0 oxcarbazepine 150 mg tablet 150 mg PO BID RF: 0 omeprazole 40 mg capsule,delayed release(DR/EC) 40 mg PO DAILY RF: 0 lorazepam 0.5 mg tablet 0.5 mg PO BID PRN (Reason: Anxiety) RF: 0 montelukast 10 mg tablet 10 mg PO BEDTIME RF: 0 fluoxetine 20 mg capsule 20 mg PO DAILY RF: 0 naproxen 500 mg tablet 500 mg PO BID PRN (Reason: pain) Qty: 20 RF: 0 prednisone 20 mg tablet 40 mg PO DAILY Qty: 10 RF: 0 albuterol sulfate 2.5 mg /3 mL (0.083 %) solution for nebulization 2.5 mg inhalation Q4-6H PRN (Reason: shortness of breath or wheezing) Qty: 90 RF: 0 budesonide-formoterol [Symbicort] 80-4.5 mcg/actuation HFA aerosol inhaler 2 puff inhalation BID Qty: 10.2 RF: 0 fluconazole [Diflucan] 50 mg tablet 50 mg PO DAILY Qty: 1 RF: 0 Interventions: ED Discharge Assessment Last Done: 04/12/21 01:52 Discharge Date/Time: 04/12/21 01:54 EDT
[2021-04-11] MEDS: Albuterol Sulfate (0.083%) 2.5 MG/3 ML VIAL.NEB 10 MG INHALE (22:13)
[2021-04-11 22:14] VITALS: PULSE 84; O2SAT 100
--- NOTE | 2021-04-11 23:09 | PC.NURSE ---
labs drawn by straight stick. pt on monitor. pt continues with breathing tx. pt awakes, respirations easy, n/l. skin w/d. warm blk given to pt. friend at bedside with pt.
[2021-04-11 23:11] LABS: Basophils Percent Auto 0.2 % (0-2); Eosinophils Absolute Auto 0.1 X10*3/uL (0.0-0.4); Eosinophils Percent Auto 0.6 % (0-4); Hematocrit 37.5 % (37.0-47.0); Hemoglobin 12.1 g/dl (12.0-16.0); Imm Gran Abs Auto 0.05 X10*3/uL (0.00-0.03); Imm Gran Pct Auto 0.3 % (0.0-0.4); Lymphocytes Absolute Auto 5.6 X10*3/uL (1.2-4.9); Lymphocytes Percent Auto 33.4 % (20-40); MANUAL DIFF FLAG SCAN; Mean Corpuscular HGB Conc 32.3 g/dl (31.0-35.0); Mean Corpuscular Hemoglobin 30.5 pg (27.0-33.0); Mean Corpuscular Volume 94.5 fL (80.0-98.0); Mean Platelet Volume 10.7 fL (9.4-12.3); Monocytes Percent Auto 5.9 % (2-11); Neutrophils Percent Auto 59.6 % (45-73); Platelet Count 318 X10*3/uL (160-400); Red Blood Count 3.97 X10*6/uL (4.20-5.50); Red Cell Distribution Width 13.2 % (11.0-16.0); SCAN SMEAR FLAG 1; White Blood Count 16.8 X10*3/uL (4.8-10.8)
[2021-04-11 23:29] LABS: Alanine Aminotransferase 23 U/L (0-31); Alkaline Phosphatase 81 U/L (39-117); Anion Gap 15 (12-20); Aspartate Amino Transferase 19 U/L (5-31); Bilirubin Total 0.2 mg/dL (0.0-1.0); Blood Urea Nitrogen 11 mg/dL (9-16); Calcium 8.8 mg/dL (8.4-10.2); Carbon Dioxide 20 mmol/L (22-29); Chloride 108 mmol/L (96-108); Estimated Glomerular Filt Rate > 60; Glucose Random 140 mg/dL (60-115); Potassium 2.9 mmol/L (3.3-5.1); Sodium 140 mmol/L (135-145); Total Protein 6.4 g/dL (6.5-8.0)
[2021-04-11 23:39] LABS: SLIDE REVIEW VERIFIED
[2021-04-11] MEDS: Ketorolac Tromethamine 15 MG/ML VIAL IVPUSH (23:42)
[2021-04-11] MEDS: methylPREDNISolone Sod Succ 125 MG/2 ML VIAL IVPUSH (23:43)
[2021-04-11] MEDS: Albuterol/Iprat 2.5/0.5MG 3 ML AMPUL.NEB INHALE (23:43)
[2021-04-11] MEDS: Magnesium Sulfate/H2O 2 GM/50 ML PIGGYBACK IV (23:43)
[2021-04-11 23:52] VITALS: PULSE 117; O2SAT 100
[2021-04-12] MEDS: LORazepam 2 MG/ML VIAL 1 MG IVPUSH (00:30)
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
[2021-04-12 01:50] VITALS: BP 128/72; PULSE 117; RESP 22; O2SAT 98
== END 2021-04-12 01:54 | disposition home or self-care (01) ==
PROVIDERS: Emergency Provider Emergency Medicine Emergency Medical Services
DX: J45.901 Unspecified asthma with (acute) exacerbation (principal); F41.1 Generalized anxiety disorder; F43.0 Acute stress reaction; R06.00 Dyspnea, unspecified; F12.90 Cannabis use, unspecified, uncomplicated; Z79.899 Other long term (current) drug therapy
CPT/HCPCS: 36415; 71046; 80053; 83605; 85025; 94640; 94644; 96365; 96366; 96375; 99284; 99291; J1885; J2060; J2930; J3475

== ENCOUNTER 2021-09-11 09:13 | Emergency (ER) | payer MEDICARE, MEDICAID, SELFPAY ==
--- NOTE | ~2021-09-11 | CT_ITS ---
EXAMINATION: CT ABDOMEN AND PELVIS WITH CONTRAST CLINICAL INFORMATION: Diffuse abdominal pain COMPARISON: CT scan abdomen pelvis 11/11/2017 TECHNIQUE: Multidetector volumetric images were obtained from the superior aspect of the liver through the pubic symphysis following administration 85 mL of Omnipaque 350 intravenous contrast. Sagittal and coronal reformatted images were obtained on the technologist's workstation. Oral contrast: No This CT examination was performed using dose optimization techniques as appropriate, variously including the following: *Automated exposure control *Adjustment of mA and/or kV according to patient size (this includes techniques or standardized protocols for targeted exams where dose is matched to indication/reason for exam; i.e. extremities or head) *Use of iterative reconstruction technique DLP: 598 mGy-cm FINDINGS: LUNG BASES: The visualized lung bases are unremarkable. LIVER, GALLBLADDER, AND BILIARY TREE: The liver is normal in size, shape, and attenuation. No focal hepatic lesion or biliary ductal dilatation is present. The gallbladder is unremarkable with no evidence of radiopaque gallstones, gallbladder wall thickening, or obvious pericholecystic inflammatory changes. PANCREAS: Unremarkable. SPLEEN: Unremarkable. ADRENAL GLANDS: Unremarkable. KIDNEYS AND URETERS: The kidneys are normal in size, shape, and attenuation. No hydronephrosis, hydroureter, or calculi seen. No perinephric stranding. BLADDER: Unremarkable. GASTROINTESTINAL TRACT: The small and large bowel are unremarkable. The appendix is unremarkable. ABDOMINAL WALL: No significant hernia is appreciated. LYMPH NODES: Normal. VASCULAR: Unremarkable. PELVIC VISCERA: Unremarkable. OSSEOUS STRUCTURES: Unremarkable. CT/CT abdomen pelvis w con IMPRESSION: No significant abnormality. Fleischner guidelines were followed.
[2021-09-11 09:21] VITALS: BP 132/86; PULSE 90; O2SAT 98
[2021-09-11 10:02] VITALS: BP 125/78; PULSE 98; RESP 16; TEMP 36.1; O2SAT 97; BMI 24.9
[2021-09-11 10:06] LABS: MANUAL DIFF FLAG NO
[2021-09-11 10:08] LABS: Basophils Percent Auto 0.2 % (0-2); Eosinophils Absolute Auto 0.1 X10*3/uL (0.0-0.4); Eosinophils Percent Auto 1.2 % (0-4); Hemoglobin 12.6 g/dl (12.0-16.0); Imm Gran Abs Auto 0.02 X10*3/uL (0.00-0.03); Imm Gran Pct Auto 0.2 % (0.0-0.4); Lymphocytes Absolute Auto 2.4 X10*3/uL (1.2-4.9); Lymphocytes Percent Auto 26.6 % (20-40); Mean Corpuscular HGB Conc 33.2 g/dl (31.0-35.0); Mean Corpuscular Hemoglobin 30.5 pg (27.0-33.0); Mean Platelet Volume 10.4 fL (9.4-12.3); Monocytes Absolute Auto 0.6 X10*3/uL (0.1-1.2); Monocytes Percent Auto 6.7 % (2-11); Neutrophils Absolute Auto 5.8 x10*3/uL (2.0-8.3); Neutrophils Percent Auto 65.1 % (45-73); Platelet Count 314 X10*3/uL (160-400); Red Blood Count 4.13 X10*6/uL (4.20-5.50); Red Cell Distribution Width 12.7 % (11.0-16.0); White Blood Count 8.9 X10*3/uL (4.8-10.8)
[2021-09-11 10:27] LABS: Anion Gap 11 (12-20); Blood Urea Nitrogen 7 mg/dL (9-16); Carbon Dioxide 24 mmol/L (22-29); Chloride 109 mmol/L (96-108); Creatinine Clr Calc Pharmacy 97.5; Estimated Glomerular Filt Rate > 60; Glucose Random 98 mg/dL (60-115); Potassium 4.1 mmol/L (3.3-5.1); Sodium 140 mmol/L (135-145)
[2021-09-11 12:21] LABS: Alanine Aminotransferase 22 U/L (0-31); Albumin Level 4.1 g/dL (3.5-5.0); Alkaline Phosphatase 79 U/L (39-117); Aspartate Amino Transferase 19 U/L (5-31); Bilirubin Direct 0.2 mg/dL (0.0-0.5); Bilirubin Total 0.5 mg/dL (0.0-1.0); Lipase 34 U/L (8-78); Total Protein 6.7 g/dL (6.5-8.0)
--- NOTE | 2021-09-11 12:27 | ED.ABDPAIN ---
HPI - Abdominal Pain General Chief Complaint: Abdominal Pain <Sidra Johansen NP - Last Filed: 09/11/21 20:55> Stated Complaint: abd pain <Sidra Johansen NP - Last Filed: 09/11/21 20:55> Time Seen by Provider: 09/11/21 12:04 <Sidra Johansen NP - Last Filed: 09/11/21 20:55> Related Data Home Medications: Home Medications Medication Instructions Recorded Confirmed fluoxetine 20 mg capsule 20 mg PO DAILY 08/18/20 12/21/20 lorazepam 0.5 mg tablet 0.5 mg PO BID PRN 08/18/20 12/21/20 montelukast 10 mg tablet 10 mg PO BEDTIME 08/18/20 12/21/20 omeprazole 40 mg capsule,delayed 40 mg PO DAILY 08/18/20 12/21/20 release oxcarbazepine 150 mg tablet 150 mg PO BID 08/18/20 12/21/20 Previous Rx's Medication Instructions Recorded naproxen 500 mg tablet 500 mg PO BID PRN #20 tab 09/28/20 albuterol sulfate 2.5 mg (3 mL) INHALATION Q4-6H PRN 12/07/20 #90 ml prednisone 20 mg tablet 40 mg PO DAILY #10 tab 12/07/20 budesonide-formoterol HFA 80 2 puff INHALATION BID #10.2 g 12/17/20 mcg-4.5 mcg/actuation aerosol inhaler (Symbicort) fluconazole 50 mg tablet (Diflucan) 50 mg PO DAILY #1 tab 12/17/20 cyclobenzaprine 10 mg tablet 10 mg PO TID PRN #14 tab 02/13/21 naproxen 500 mg tablet 500 mg PO BID PRN #30 tab 02/13/21 ondansetron HCl 4 mg tablet 4 mg PO Q8H PRN #14 tab 02/13/21 (Zofran) azithromycin 250 mg tablet See Rx Instructions .ROUTE 04/12/21 (Zithromax Z-Olman) .COMPLEX #6 tab prednisone 20 mg tablet 60 mg PO DAILY 5 Days #15 tab 04/12/21 hyoscyamine sulfate 0.125 mg tablet 0.125 mg PO QID PRN #10 tab 09/11/21 <Sidra Johansen NP - Last Filed: 09/11/21 20:55> Allergies/Adverse Reactions: Allergies Allergy/AdvReac Type Severity Reaction Status Date / Time amoxicillin [AMOXICILLIN] Allergy Unknown RASH Verified 12/21/20 14:11 cefuroxime [From CEFTIN] Allergy Unknown HIVES, Verified 12/21/20 14:11 ANAPHYLAXIS divalproex sodium Allergy Unknown TALKS Verified 12/21/20 14:11 [From DEPAKOTE] WEIRD Penicillins [PENICILLINS] Allergy Unknown HIVES Verified 12/21/20 14:11 <Sidra Johansen NP - Last Filed: 09/11/21 20:55> [facility] Past Medical History Medical History: Medical History Asthma Depression No known health problems <Sidra Johansen NP - Last Filed: 09/11/21 20:55> Social History Social History: Social History Alcohol intake: never Patient Tobacco Use Status: Never used Tobacco Substance Use Type: Marijuana Advance Directives: No Advance Directives Information Provided: Yes Patient : No <Sidra Johansen NP - Last Filed: 09/11/21 20:55> Physical Exam ED Vital Signs: Vital Signs - 24 hr 09/11/21 10:02 09/11/21 14:31 Temperature 96.9 F 97.8 F Pulse Rate 98 94 Respiratory Rate 16 14 Blood Pressure 125/78 123/79 Pulse Oximetry 97 100 BMI result Body Mass Index 24.9 <Sidra Johansen NP - Last Filed: 09/11/21 20:55> Course Course Course Narrative: 1230-This is a rapid medical exam. 36 yo female with 3 weeks of right sided abdominal with diarrhea(3-4x daily), nausea. Has been seen by a GI in the past and is taking a carafate with continued symptoms. Deferred additional HPI, ROS, PE to primary provider. <Sidra Johansen NP - Last Filed: 09/11/21 20:55> MDM - Abdominal Pain Lab Data Result diagrams: : 09/11/21 10:01 09/11/21 10:01 <Sidra Johansen NP - Last Filed: 09/11/21 20:55> Labs: Lab Results 09/11/21 09/11/21 09/11/21 Range/Units 10:01 10:01 13:18 WBC 8.9 (4.8-10.8) X10*3/uL RBC 4.13 L (4.20-5.50) X10*6/uL Hgb 12.6 (12.0-16.0) g/dl Hct 38.0 (37.0-47.0) % MCV 92.0 (80.0-98.0) fL MCH 30.5 (27.0-33.0) pg MCHC 33.2 (31.0-35.0) g/dl RDW 12.7 (11.0-16.0) % Plt Count 314 (160-400) X10*3/uL MPV 10.4 (9.4-12.3) fL Immature Gran % (Auto) 0.2 (0.0-0.4) % Neut % (Auto) 65.1 (45-73) % Lymph % (Auto) 26.6 (20-40) % [place] % (Auto) 6.7 (2-11) % Eos % (Auto) 1.2 (0-4) % Baso % (Auto) 0.2 (0-2) % Lymph # (Auto) 2.4 (1.2-4.9) X10*3/uL [place] # (Auto) 0.6 (0.1-1.2) X10*3/uL Eos # (Auto) 0.1 (0.0-0.4) X10*3/uL Baso # (Auto) 0.0 (0.0-0.2) X10*3/uL Abs Immat Gran (auto) 0.02 (0.00-0.03) X10*3/uL Absolute Neuts (auto) 5.8 (2.0-8.3) x10*3/uL Absolute Nucleated RBC 0.000 (0.0-0.012) X10*3/uL Nucleated RBC % (auto) 0.0 (0.0-0.2) /100WBC Sodium 140 (135-145) mmol/L Potassium 4.1 D (3.3-5.1) mmol/L Chloride 109 H (96-108) mmol/L Carbon Dioxide 24 (22-29) mmol/L Anion Gap 11 L (12-20) BUN 7 L (9-16) mg/dL Creatinine 0.73 (0.5-1.4) mg/dL Estim Creat Clear Calc 97.5 Estimated GFR > 60 Random Glucose 98 (60-115) mg/dL Calcium 9.0 (8.4-10.2) mg/dL Total Bilirubin 0.5 (0.0-1.0) mg/dL Direct Bilirubin 0.2 (0.0-0.5) mg/dL AST 19 (5-31) U/L ALT 22 (0-31) U/L Alkaline Phosphatase 79 (39-117) U/L Total Protein 6.7 (6.5-8.0) g/dL Albumin 4.1 (3.5-5.0) g/dL Lipase 34 (8-78) U/L Urine Color YELLOW Urine Appearance HAZY Urine pH 5.5 (5.0-8.0) Ur Specific [place] >= 1.030 H (1.005-1.025) Urine Protein TRACE (NEG-TRACE) MG/DL Urine Glucose (UA) NEG (NEG) MG/DL Urine Ketones NEG (NEG) MG/DL Urine Blood NEG (NEG) Urine Nitrite NEG (NEG) Ur Leukocyte Esterase NEG (NEG) Urine Test (NEGATIVE) 09/11/21 Range/Units 13:18 WBC (4.8-10.8) X10*3/uL RBC (4.20-5.50) X10*6/uL Hgb (12.0-16.0) g/dl Hct (37.0-47.0) % MCV (80.0-98.0) fL MCH (27.0-33.0) pg MCHC (31.0-35.0) g/dl RDW (11.0-16.0) % Plt Count (160-400) X10*3/uL MPV (9.4-12.3) fL Immature Gran % (Auto) (0.0-0.4) % Neut % (Auto) (45-73) % Lymph % (Auto) (20-40) % [place] % (Auto) (2-11) % Eos % (Auto) (0-4) % Baso % (Auto) (0-2) % Lymph # (Auto) (1.2-4.9) X10*3/uL [place] # (Auto) (0.1-1.2) X10*3/uL Eos # (Auto) (0.0-0.4) X10*3/uL Baso # (Auto) (0.0-0.2) X10*3/uL Abs Immat Gran (auto) (0.00-0.03) X10*3/uL Absolute Neuts (auto) (2.0-8.3) x10*3/uL Absolute Nucleated RBC (0.0-0.012) X10*3/uL Nucleated RBC % (auto) (0.0-0.2) /100WBC Sodium (135-145) mmol/L Potassium (3.3-5.1) mmol/L Chloride (96-108) mmol/L Carbon Dioxide (22-29) mmol/L Anion Gap (12-20) BUN (9-16) mg/dL Creatinine (0.5-1.4) mg/dL Estim Creat Clear Calc Estimated GFR Random Glucose (60-115) mg/dL Calcium (8.4-10.2) mg/dL Total Bilirubin (0.0-1.0) mg/dL Direct Bilirubin (0.0-0.5) mg/dL AST (5-31) U/L ALT (0-31) U/L Alkaline Phosphatase (39-117) U/L Total Protein (6.5-8.0) g/dL Albumin (3.5-5.0) g/dL Lipase (8-78) U/L Urine Color Urine Appearance Urine pH (5.0-8.0) Ur Specific [place] (1.005-1.025) Urine Protein (NEG-TRACE) MG/DL Urine Glucose (UA) (NEG) MG/DL Urine Ketones (NEG) MG/DL Urine Blood (NEG) Urine Nitrite (NEG) Ur Leukocyte Esterase (NEG) Urine Test NEGATIVE (NEGATIVE) <Sidra Johansen NP - Last Filed: 09/11/21 20:55> Discharge Plan Discharge Clinical Impression: Abdominal pain <Sidra Johansen NP - Last Filed: 09/11/21 20:55> Patient Disposition: Home, Self-Care <Sidra Johansen NP - Last Filed: 09/11/21 20:55> Instructions: Diet for Stomach Ulcers and Gastritis (ED), Abdominal Pain (ED) <Sidra Johansen NP - Last Filed: 09/11/21 20:55> Additional Instructions: Please follow-up with your primary care physician tomorrow. If you have any worsening or new symptoms, please return to the emergency room or call 911 <Sidra Johansen NP - Last Filed: 09/11/21 20:55> Prescriptions: New hyoscyamine sulfate 0.125 mg tablet 0.125 mg PO QID PRN (Reason: dyspepsia) Qty: 10 0RF No Action cyclobenzaprine 10 mg tablet 10 mg PO TID PRN (Reason: muscle spasm) Qty: 14 0RF naproxen 500 mg tablet 500 mg PO BID PRN (Reason: pain) Qty: 30 0RF ondansetron HCl [Zofran] 4 mg tablet 4 mg PO Q8H PRN (Reason: nausea and vomiting) Qty: 14 0RF oxcarbazepine 150 mg tablet 150 mg PO BID 0RF omeprazole 40 mg capsule,delayed release(DR/EC) 40 mg PO DAILY 0RF lorazepam 0.5 mg tablet 0.5 mg PO BID PRN (Reason: Anxiety) 0RF montelukast 10 mg tablet 10 mg PO BEDTIME 0RF fluoxetine 20 mg capsule 20 mg PO DAILY 0RF naproxen 500 mg tablet 500 mg PO BID PRN (Reason: pain) Qty: 20 0RF prednisone 20 mg tablet 40 mg PO DAILY Qty: 10 0RF albuterol sulfate 2.5 mg /3 mL (0.083 %) solution for nebulization 2.5 mg inhalation Q4-6H PRN (Reason: shortness of breath or wheezing) Qty: 90 0RF azithromycin [Zithromax Z-Olman] 250 mg tablet See Rx Instructions .ROUTE .COMPLEX Qty: 6 0RF Rx Instructions: take 500 mg today (day 1), then 250 mg for 4 days (days 2-5) prednisone 20 mg tablet 60 mg PO DAILY 5 Days Qty: 15 0RF budesonide-formoterol [Symbicort] 80-4.5 mcg/actuation HFA aerosol inhaler 2 puff inhalation BID Qty: 10.2 0RF fluconazole [Diflucan] 50 mg tablet 50 mg PO DAILY Qty: 1 0RF <Sidra Johansen NP - Last Filed: 09/11/21 20:55> Interventions: ED Discharge Assessment Last Done: 09/11/21 16:17 <Sidra Johansen NP - Last Filed: 09/11/21 20:55> Discharge Date/Time: 09/11/21 16:17 <Sidra Johansen NP - Last Filed: 09/11/21 20:55>
[2021-09-11 13:28] LABS: Appearance Urine HAZY; Color Urine YELLOW; Glucose Urine UA NEG (NEG); Leukocyte Esterase Urine NEG (NEG); Nitrite Urine NEG (NEG); PH 5.5 (5.0-8.0); Specific Gravity - Urine >= 1.030 (1.005-1.025); Urine Blood NEG (NEG); Urine Ketones NEG (NEG); Urine Protein TRACE MG/DL (NEG-TRACE)
[2021-09-11 13:31] LABS: UPreg QC Valid YES; Urine Pregnancy NEGATIVE (NEGATIVE)
--- NOTE | 2021-09-11 14:03 | ED_ITS ---
HPI - Abdominal Pain General Chief Complaint: Abdominal Pain Stated Complaint: abd pain Time Seen by Provider: 09/11/21 12:04 Source: patient Mode of arrival: ambulatory Limitations: no limitations History of Present Illness HPI narrative: Patient comes to emergency room complaining of diffuse abdominal pain for 3 weeks, no vomiting or diarrhea. Patient states that she was prescribed sucralfate 1 week ago, no change in symptoms. Patient denies dysuria, no fever chills, no flank pain. Related Data Home Medications Medication Instructions Recorded Confirmed fluoxetine 20 mg capsule 20 mg PO DAILY 08/18/20 12/21/20 lorazepam 0.5 mg tablet 0.5 mg PO BID PRN 08/18/20 12/21/20 montelukast 10 mg tablet 10 mg PO BEDTIME 08/18/20 12/21/20 omeprazole 40 mg capsule,delayed 40 mg PO DAILY 08/18/20 12/21/20 release oxcarbazepine 150 mg tablet 150 mg PO BID 08/18/20 12/21/20 Previous Rx's Medication Instructions Recorded naproxen 500 mg tablet 500 mg PO BID PRN #20 tab 09/28/20 albuterol sulfate 2.5 mg (3 mL) INHALATION Q4-6H PRN 12/07/20 #90 ml prednisone 20 mg tablet 40 mg PO DAILY #10 tab 12/07/20 budesonide-formoterol HFA 80 2 puff INHALATION BID #10.2 g 12/17/20 mcg-4.5 mcg/actuation aerosol inhaler (Symbicort) fluconazole 50 mg tablet (Diflucan) 50 mg PO DAILY #1 tab 12/17/20 cyclobenzaprine 10 mg tablet 10 mg PO TID PRN #14 tab 02/13/21 naproxen 500 mg tablet 500 mg PO BID PRN #30 tab 02/13/21 ondansetron HCl 4 mg tablet 4 mg PO Q8H PRN #14 tab 02/13/21 (Zofran) azithromycin 250 mg tablet See Rx Instructions .ROUTE 04/12/21 (Zithromax Z-Olman) .COMPLEX #6 tab prednisone 20 mg tablet 60 mg PO DAILY 5 Days #15 tab 04/12/21 hyoscyamine sulfate 0.125 mg tablet 0.125 mg PO QID PRN #10 tab 09/11/21 Allergies Allergy/AdvReac Type Severity Reaction Status Date / Time amoxicillin [AMOXICILLIN] Allergy Unknown RASH Verified 12/21/20 14:11 cefuroxime [From CEFTIN] Allergy Unknown HIVES, Verified 12/21/20 14:11 ANAPHYLAXIS divalproex sodium Allergy Unknown TALKS Verified 12/21/20 14:11 [From DEPAKOTE] WEIRD Penicillins [PENICILLINS] Allergy Unknown HIVES Verified 12/21/20 14:11 Review of Systems Review of Systems Constitutional : No Weight loss, No Fever, No Chills, No Night Sweats, No Fatigue, No Malaise ENT/Mouth : No Hearing loss, No Ear Pain, No Nasal Congestion, No Sinus Pain, No Hoarseness, No sore throat, No Rhinorrhea, No Swallowing Difficulty Eyes: No Eye Pain, No Swelling, No Redness, No Foreign Body, No Discharge, No Vision Changes Cardiovascular : No Chest Pain, No SOB, No Dyspnea on Exertion, No Orthopnea, No Edema, No Palpitations Respiratory : No Cough, No Sputum, No Wheezing, No Smoke Exposure, No Dyspnea Gastrointestinal : No Nausea, No Vomiting, No Diarrhea, No Constipation, diffuse abdominal pain for 3 weeks, No Hematochezia, No Melena Genitourinary : no irregular bleeding, No Dysuria, No Urinary Frequency, No Hematuria, No Urinary Incontinence, No Urgency, No Flank Pain, No Urinary Flow Changes, No Hesitancy Musculoskeletal : No joint pain, No Myalgias, No Joint Swelling Skin : No Skin Lesions, No rash Neuro : No Weakness, No Numbness, No Paresthesias, No Loss of Consciousness, No Dizziness, No Headache Psych : No Anxiety/Panic, No Depression, No SI/HI/AH/VH, No Social Issues, Heme/Lymph: No Bruising, No Bleeding,No Lymphadenopathy Endocrine : No Polyuria, No Polydipsia, No Temperature Intolerance PMFSH Past Medical History Medical History Asthma Depression No known health problems Social History Social History Alcohol intake: never Patient Tobacco Use Status: Never used Tobacco Substance Use Type: Marijuana Advance Directives: No Advance Directives Information Provided: Yes Patient : No Physical Exam ED Vital Signs: Vital Signs - 24 hr 09/11/21 10:02 09/11/21 14:31 Temperature 96.9 F 97.8 F Pulse Rate 98 94 Respiratory Rate 16 14 Blood Pressure 125/78 123/79 Pulse Oximetry 97 100 BMI result Body Mass Index 24.9 Const Other: Appearance: Alert. Oriented X3. No acute distress. Eyes: Pupils equal, round and reactive to light. ENT: Pharynx normal. Neck: Normal inspection. Neck supple. No lymph nodes noted. No crepitus CVS: Normal heart rate and rhythm. Pulses normal. Normal S1 and S2 Respiratory: No respiratory distress. Breath sounds normal. No Wheezing. No rales Abdomen: Soft , tenderness to palpation in all quadrants, exaggerated response to light palpation in the abdomen Skin: Skin warm and dry. Normal skin color. Normal skin turgor. Extremities: No lower extremity edema. No Lacerations. No Rash Neuro: Oriented X 3. No motor deficit. No sensory deficit. Moving all extremities. No slurred speech. CN 2 through 12 grossly intact Psych: calm, cooperative, normal affect Course Course Course Narrative: I discussed the labs and imaging with the patient, no acute findings. Patient may have IBS. MDM - Abdominal Pain Lab Data Result diagrams: 09/11/21 10:01 09/11/21 10:01 Labs: Lab Results 09/11/21 09/11/21 09/11/21 Range/Units 10:01 10:01 13:18 WBC 8.9 (4.8-10.8) X10*3/uL RBC 4.13 L (4.20-5.50) X10*6/uL Hgb 12.6 (12.0-16.0) g/dl Hct 38.0 (37.0-47.0) % MCV 92.0 (80.0-98.0) fL MCH 30.5 (27.0-33.0) pg MCHC 33.2 (31.0-35.0) g/dl RDW 12.7 (11.0-16.0) % Plt Count 314 (160-400) X10*3/uL MPV 10.4 (9.4-12.3) fL Immature Gran % (Auto) 0.2 (0.0-0.4) % Neut % (Auto) 65.1 (45-73) % Lymph % (Auto) 26.6 (20-40) % [place] % (Auto) 6.7 (2-11) % Eos % (Auto) 1.2 (0-4) % Baso % (Auto) 0.2 (0-2) % Lymph # (Auto) 2.4 (1.2-4.9) X10*3/uL [place] # (Auto) 0.6 (0.1-1.2) X10*3/uL Eos # (Auto) 0.1 (0.0-0.4) X10*3/uL Baso # (Auto) 0.0 (0.0-0.2) X10*3/uL Abs Immat Gran (auto) 0.02 (0.00-0.03) X10*3/uL Absolute Neuts (auto) 5.8 (2.0-8.3) x10*3/uL Absolute Nucleated RBC 0.000 (0.0-0.012) X10*3/uL Nucleated RBC % (auto) 0.0 (0.0-0.2) /100WBC Sodium 140 (135-145) mmol/L Potassium 4.1 D (3.3-5.1) mmol/L Chloride 109 H (96-108) mmol/L Carbon Dioxide 24 (22-29) mmol/L Anion Gap 11 L (12-20) BUN 7 L (9-16) mg/dL Creatinine 0.73 (0.5-1.4) mg/dL Estim Creat Clear Calc 97.5 Estimated GFR > 60 Random Glucose 98 (60-115) mg/dL Calcium 9.0 (8.4-10.2) mg/dL Total Bilirubin 0.5 (0.0-1.0) mg/dL Direct Bilirubin 0.2 (0.0-0.5) mg/dL AST 19 (5-31) U/L ALT 22 (0-31) U/L Alkaline Phosphatase 79 (39-117) U/L Total Protein 6.7 (6.5-8.0) g/dL Albumin 4.1 (3.5-5.0) g/dL Lipase 34 (8-78) U/L Urine Color YELLOW Urine Appearance HAZY Urine pH 5.5 (5.0-8.0) Ur Specific [place] >= 1.030 H (1.005-1.025) Urine Protein TRACE (NEG-TRACE) MG/DL Urine Glucose (UA) NEG (NEG) MG/DL Urine Ketones NEG (NEG) MG/DL Urine Blood NEG (NEG) Urine Nitrite NEG (NEG) Ur Leukocyte Esterase NEG (NEG) Urine Test (NEGATIVE) 09/11/21 Range/Units 13:18 WBC (4.8-10.8) X10*3/uL RBC (4.20-5.50) X10*6/uL Hgb (12.0-16.0) g/dl Hct (37.0-47.0) % MCV (80.0-98.0) fL MCH (27.0-33.0) pg MCHC (31.0-35.0) g/dl RDW (11.0-16.0) % Plt Count (160-400) X10*3/uL MPV (9.4-12.3) fL Immature Gran % (Auto) (0.0-0.4) % Neut % (Auto) (45-73) % Lymph % (Auto) (20-40) % [place] % (Auto) (2-11) % Eos % (Auto) (0-4) % Baso % (Auto) (0-2) % Lymph # (Auto) (1.2-4.9) X10*3/uL [place] # (Auto) (0.1-1.2) X10*3/uL Eos # (Auto) (0.0-0.4) X10*3/uL Baso # (Auto) (0.0-0.2) X10*3/uL Abs Immat Gran (auto) (0.00-0.03) X10*3/uL Absolute Neuts (auto) (2.0-8.3) x10*3/uL Absolute Nucleated RBC (0.0-0.012) X10*3/uL Nucleated RBC % (auto) (0.0-0.2) /100WBC Sodium (135-145) mmol/L Potassium (3.3-5.1) mmol/L Chloride (96-108) mmol/L Carbon Dioxide (22-29) mmol/L Anion Gap (12-20) BUN (9-16) mg/dL Creatinine (0.5-1.4) mg/dL Estim Creat Clear Calc Estimated GFR Random Glucose (60-115) mg/dL Calcium (8.4-10.2) mg/dL Total Bilirubin (0.0-1.0) mg/dL Direct Bilirubin (0.0-0.5) mg/dL AST (5-31) U/L ALT (0-31) U/L Alkaline Phosphatase (39-117) U/L Total Protein (6.5-8.0) g/dL Albumin (3.5-5.0) g/dL Lipase (8-78) U/L Urine Color Urine Appearance Urine pH (5.0-8.0) Ur Specific [place] (1.005-1.025) Urine Protein (NEG-TRACE) MG/DL Urine Glucose (UA) (NEG) MG/DL Urine Ketones (NEG) MG/DL Urine Blood (NEG) Urine Nitrite (NEG) Ur Leukocyte Esterase (NEG) Urine Test NEGATIVE (NEGATIVE) Imaging Data CT scan - abdomen: Radiologist's impression: FINDINGS: LUNG BASES: The visualized lung bases are unremarkable.? LIVER, GALLBLADDER, AND BILIARY TREE: The liver is normal in size, shape, and attenuation. No focal hepatic lesion or biliary ductal dilatation is present. The gallbladder is unremarkable with no evidence of radiopaque gallstones, gallbladder wall thickening, or obvious pericholecystic inflammatory changes.? PANCREAS: Unremarkable.? SPLEEN: Unremarkable.? ADRENAL GLANDS: Unremarkable.? KIDNEYS AND URETERS: The kidneys are normal in size, shape, and attenuation. No hydronephrosis, hydroureter, or calculi seen. No perinephric stranding. ? BLADDER: Unremarkable.? GASTROINTESTINAL TRACT: The small and large bowel are unremarkable. The appendix is unremarkable.? ABDOMINAL WALL: No significant hernia is appreciated.? LYMPH NODES: Normal. VASCULAR: Unremarkable. PELVIC VISCERA: Unremarkable.? OSSEOUS STRUCTURES: Unremarkable.? CT/CT abdomen pelvis w con IMPRESSION: No significant abnormality.? ? Fleischner guidelines were followed. Discharge Plan Discharge Clinical Impression: Abdominal pain Patient Disposition: Home, Self-Care Instructions: Diet for Stomach Ulcers and Gastritis (ED), Abdominal Pain (ED) Additional Instructions: Please follow-up with your primary care physician tomorrow. If you have any worsening or new symptoms, please return to the emergency room or call 911 Prescriptions: New hyoscyamine sulfate 0.125 mg tablet 0.125 mg PO QID PRN (Reason: dyspepsia) Qty: 10 0RF No Action cyclobenzaprine 10 mg tablet 10 mg PO TID PRN (Reason: muscle spasm) Qty: 14 0RF naproxen 500 mg tablet 500 mg PO BID PRN (Reason: pain) Qty: 30 0RF ondansetron HCl [Zofran] 4 mg tablet 4 mg PO Q8H PRN (Reason: nausea and vomiting) Qty: 14 0RF oxcarbazepine 150 mg tablet 150 mg PO BID 0RF omeprazole 40 mg capsule,delayed release(DR/EC) 40 mg PO DAILY 0RF lorazepam 0.5 mg tablet 0.5 mg PO BID PRN (Reason: Anxiety) 0RF montelukast 10 mg tablet 10 mg PO BEDTIME 0RF fluoxetine 20 mg capsule 20 mg PO DAILY 0RF naproxen 500 mg tablet 500 mg PO BID PRN (Reason: pain) Qty: 20 0RF prednisone 20 mg tablet 40 mg PO DAILY Qty: 10 0RF albuterol sulfate 2.5 mg /3 mL (0.083 %) solution for nebulization 2.5 mg inhalation Q4-6H PRN (Reason: shortness of breath or wheezing) Qty: 90 0RF azithromycin [Zithromax Z-Olman] 250 mg tablet See Rx Instructions .ROUTE .COMPLEX Qty: 6 0RF Rx Instructions: take 500 mg today (day 1), then 250 mg for 4 days (days 2-5) prednisone 20 mg tablet 60 mg PO DAILY 5 Days Qty: 15 0RF budesonide-formoterol [Symbicort] 80-4.5 mcg/actuation HFA aerosol inhaler 2 puff inhalation BID Qty: 10.2 0RF fluconazole [Diflucan] 50 mg tablet 50 mg PO DAILY Qty: 1 0RF
[2021-09-11] MEDS: iohexoL 350 MG/ML 100 ML INFUS..BTL IV (14:27)
[2021-09-11 14:31] VITALS: BP 123/79; PULSE 94; RESP 14; TEMP 36.6; O2SAT 100
== END 2021-09-11 16:17 | disposition home or self-care (01) ==
PROVIDERS: Nurse Practitioner Family; Emergency Provider Emergency Medicine
DX: R10.9 Unspecified abdominal pain (principal); Z79.899 Other long term (current) drug therapy
CPT/HCPCS: 36415; 74177; 80048; 80076; 81003; 81025; 83690; 85025; 99283; 99284; Q9967

== ENCOUNTER 2021-12-04 20:40 | Emergency (ER) | payer MEDICARE, MEDICAID, SELFPAY ==
--- NOTE | ~2021-12-04 | XR_ITS ---
EXAMINATION: XR CHEST CLINICAL INFORMATION: Cough COMPARISON: Chest x-ray 04/11/2021 TECHNIQUE: Frontal view of the chest was obtained. FINDINGS: The lungs are clear. No airspace consolidation, pleural effusion, or pneumothorax. The cardiomediastinal silhouette is within normal limits. No acute osseous injury. XR/XR chest 1V IMPRESSION: No acute pulmonary process.
[2021-12-04 20:57] VITALS: BP 102/56; BP 130/80; PULSE 88; PULSE 94; RESP 16; TEMP 36.5; O2SAT 100; O2SAT 98; BMI 24.0
--- NOTE | 2021-12-04 21:16 | ED.ASTHMA ---
HPI - Asthma General Chief Complaint: Dyspnea Stated Complaint: sob Time Seen by Provider: 12/04/21 21:10 Source: patient Mode of arrival: ambulatory Limitations: no limitations History of Present Illness HPI Narrative: 36 yo female with hx of anxiety, asthma who comes in stating her apartment has had black mold for 4 months and she has been exposed to it. Yesterday her bathroom was ripped up and they just left wholes open and she was exposed to black mold causing her to feel weak, dizzy and her asthma to act up. The patient has been using her inhaler. She is not staying there anymore and her landlord is aware. MD complaint: shortness of breath and wheezing Onset (ago): day(s) (yesterday ) Severity: moderate Context: other (states apartment had black mold) Associated symptoms: dry cough (dizziness, weakness) Asthma History: childhood onset Treatments Prior to Arrival: inhaled bronchodilator Related Data Home Medications Medication Instructions Recorded Confirmed fluoxetine 20 mg capsule 20 mg PO DAILY 08/18/20 12/21/20 lorazepam 0.5 mg tablet 0.5 mg PO BID PRN Anxiety 08/18/20 12/21/20 montelukast 10 mg tablet 10 mg PO BEDTIME 08/18/20 12/21/20 omeprazole 40 mg capsule,delayed 40 mg PO DAILY 08/18/20 12/21/20 release oxcarbazepine 150 mg tablet 150 mg PO BID 08/18/20 12/21/20 Previous Rx's Medication Instructions Recorded naproxen 500 mg tablet 500 mg PO BID PRN pain #20 tabs 09/28/20 albuterol sulfate 2.5 mg (3 mL) inhalation Q4-6H PRN 12/07/20 shortness of breath or wheezing #90 mL prednisone 20 mg tablet 40 mg PO DAILY #10 tabs 12/07/20 budesonide-formoterol HFA 80 2 puff inhalation BID #10.2 grams 12/17/20 mcg-4.5 mcg/actuation aerosol inhaler (Symbicort) fluconazole 50 mg tablet (Diflucan) 50 mg PO DAILY #1 tab 12/17/20 cyclobenzaprine 10 mg tablet 10 mg PO TID PRN muscle spasm #14 02/13/21 tabs naproxen 500 mg tablet 500 mg PO BID PRN pain #30 tabs 02/13/21 ondansetron HCl 4 mg tablet 4 mg PO Q8H PRN nausea and 02/13/21 (Zofran) vomiting #14 tabs azithromycin 250 mg tablet See Rx Instructions PO .COMPLEX #6 04/12/21 (Zithromax Z-Olman) tabs prednisone 20 mg tablet 60 mg PO DAILY 5 days #15 tabs 04/12/21 hyoscyamine sulfate 0.125 mg tablet 0.125 mg PO QID PRN dyspepsia #10 09/11/21 tabs benzonatate 100 mg capsule 100 mg PO TID PRN cough #14 caps 12/04/21 prednisone 20 mg tablet 60 mg PO DAILY 4 days #12 tabs 12/04/21 Allergies Allergy/AdvReac Type Severity Reaction Status Date / Time amoxicillin [AMOXICILLIN] Allergy Unknown RASH Verified 12/04/21 21:03 cefuroxime [From CEFTIN] Allergy Unknown HIVES, Verified 12/04/21 21:03 ANAPHYLAXIS divalproex sodium Allergy Unknown TALKS Verified 12/04/21 21:03 [From DEPAKOTE] WEIRD Penicillins [PENICILLINS] Allergy Unknown HIVES Verified 12/04/21 21:03 Review of Systems Review of Systems: Constitutional : No Fever, No Chills ENT/Mouth : No Hoarseness, No sore throat, No Rhinorrhea Eyes: No Redness, No Discharge, No Vision Changes Cardiovascular : No Chest Pain, positive SOB, No edema Respiratory : positive Cough, No Sputum, positive Wheezing, Gastrointestinal : No Nausea, No Vomiting, No Diarrhea, No abdominal Pain Genitourinary : No Dysuria, No Hematuria Musculoskeletal : No joint pain, No Myalgias Skin : No rash Neuro : pos Weakness, pos Numbness, No Headache Psych : No anxiety, depression Heme/Lymph: No Bruising, No Bleeding Endocrine : No Polyuria, No Polydipsia All other systems reviewed and are negative PMFSH Past Medical History Attestation statement: The following information was validated with the patient. Medical History Asthma Depression No known health problems Social History Social History Alcohol intake: never Patient Tobacco Use Status: Never used Tobacco Use of substances other than those prescribed or required for medical reasons: No Substance Use Type: Marijuana Advance Directives: No Advance Directives Information Provided: Yes Patient : No Physical Exam Vital Signs: Vital Signs: Last Vital Signs Temp 97.7 F 12/04/21 20:57 Pulse 109 H 12/04/21 22:29 Resp 16 12/04/21 22:29 BP 110/55 L 12/04/21 22:29 Pulse Ox 98 12/04/21 22:29 O2 Del Method 12/04/21 22:29 BMI result Body Mass Index 24.0 Appearance: Alert. Oriented X3. No acute distress. Eyes: Pupils equal, round and reactive to light. ENT: Pharynx normal. Neck: Normal inspection. Neck supple. CVS: Normal heart rate and rhythm. Pulses normal. Respiratory: No respiratory distress. Breath sounds slightly diminished with dry cough and mild end exp wheeze Abdomen: Soft and non-tender. Skin: Skin warm and dry. Normal skin color. Normal skin turgor. Extremities: No lower extremity edema. No calf ttp Neuro: Oriented X 3. No motor deficit. No sensory deficit. Course Course Course Narrative: clear lungs, no hypoxia, stable for DC MDM - Asthma MDM Narrative Medical decision making narrative: 36 yo female with hx of asthma and anxiety here with no resp distress reportedly exposed to black mold in her apartment now with asthma exacerbation and some weakness/dizziness. She is not toxic. She has pictures of the black mold. She will need neb, PO steroids and CXR. Anticipate DC home - she is staying somewhere other than her apartment right now while this is being sorted out. Lab Data Labs: Lab Results 12/04/21 Range/Units 22:02 COVID-19 ([facility]I) Negative (Negative) COVID-19 Clin Com See Note Discharge Plan Discharge Clinical Impression: Asthma with exacerbation, Pneumonitis Patient Disposition: Home, Self-Care Instructions: Asthma (ED), Pneumonitis (ED) Additional Instructions: return to ED for any worsening symptoms or concerns please avoid your apartment if it is a trigger for your asthma follow up with your doctor if not better by Tuesday COVID negative Prescriptions: New prednisone 20 mg tablet 60 mg PO DAILY 4 Days Qty: 12 0RF benzonatate 100 mg capsule 100 mg PO TID PRN (Reason: cough) Qty: 14 0RF No Action cyclobenzaprine 10 mg tablet 10 mg PO TID PRN (Reason: muscle spasm) Qty: 14 0RF naproxen 500 mg tablet 500 mg PO BID PRN (Reason: pain) Qty: 30 0RF ondansetron HCl [Zofran] 4 mg tablet 4 mg PO Q8H PRN (Reason: nausea and vomiting) Qty: 14 0RF oxcarbazepine 150 mg tablet 150 mg PO BID omeprazole 40 mg capsule,delayed release(DR/EC) 40 mg PO DAILY lorazepam 0.5 mg tablet 0.5 mg PO BID PRN (Reason: Anxiety) montelukast 10 mg tablet 10 mg PO BEDTIME fluoxetine 20 mg capsule 20 mg PO DAILY naproxen 500 mg tablet 500 mg PO BID PRN (Reason: pain) Qty: 20 0RF prednisone 20 mg tablet 40 mg PO DAILY Qty: 10 0RF albuterol sulfate 2.5 mg /3 mL (0.083 %) solution for nebulization 2.5 mg inhalation Q4-6H PRN (Reason: shortness of breath or wheezing) Qty: 90 0RF azithromycin [Zithromax Z-Olman] 250 mg tablet See Rx Instructions .ROUTE .COMPLEX Qty: 6 0RF Rx Instructions: take 500 mg today (day 1), then 250 mg for 4 days (days 2-5) prednisone 20 mg tablet 60 mg PO DAILY 5 Days Qty: 15 0RF hyoscyamine sulfate 0.125 mg tablet 0.125 mg PO QID PRN (Reason: dyspepsia) Qty: 10 0RF budesonide-formoterol [Symbicort] 80-4.5 mcg/actuation HFA aerosol inhaler 2 puff inhalation BID Qty: 10.2 0RF fluconazole [Diflucan] 50 mg tablet 50 mg PO DAILY Qty: 1 0RF
[2021-12-04] MEDS: Albuterol Sulfate (0.083%) 2.5 MG/3 ML VIAL.NEB 5 MG INHALE (21:31)
[2021-12-04 21:32] VITALS: PULSE 94; RESP 16; O2SAT 98
[2021-12-04 22:00] VITALS: BP 110/55; PULSE 108; RESP 16; O2SAT 99
[2021-12-04 22:21] LABS: COVID-19 Test Negative (Negative); IDNOW Serial# 55D5AD1C
[2021-12-04] MEDS: predniSONE 20 MG TABLET 60 MG PO (22:25)
[2021-12-04 22:29] VITALS: BP 110/55; PULSE 109; RESP 16; O2SAT 98
== END 2021-12-04 23:27 | disposition home or self-care (01) ==
PROVIDERS: Emergency Provider Emergency Medicine
DX: J18.9 Pneumonia, unspecified organism (principal); J45.901 Unspecified asthma with (acute) exacerbation; R06.02 Shortness of breath; R42 Dizziness and giddiness; Z20.822 Contact with and (suspected) exposure to COVID-19; Z79.899 Other long term (current) drug therapy
CPT/HCPCS: 71045; 87635; 94640; 94644; 99284; 99285

== ENCOUNTER 2022-01-16 15:08 | Emergency (ER) | payer MEDICARE, MEDICAID, SELFPAY ==
--- NOTE | ~2022-01-16 | XR_ITS ---
EXAMINATION: XR CHEST CLINICAL INFORMATION: Cough and shortness of breath. Rule out pneumonia COMPARISON: Chest x-ray 12/04/2021 TECHNIQUE: Frontal view of the chest was obtained. FINDINGS: The lungs are clear. No airspace consolidation, pleural effusion, or pneumothorax. The cardiomediastinal silhouette is within normal limits. No acute osseous injury. XR/XR chest 1V IMPRESSION: No acute pulmonary process.
--- NOTE | ~2022-01-16 | CT_ITS ---
EXAMINATION: CT HEAD WITHOUT CONTRAST CLINICAL INFORMATION: Fall with loss of consciousness. COMPARISON: Head CT 09/28/2020 TECHNIQUE: Imaging was performed from the skull base to vertex without intravenous administration of contrast. This CT examination was performed using dose optimization techniques as appropriate, variously including the following: *Automated exposure control *Adjustment of mA and/or kV according to patient size (this includes techniques or standardized protocols for targeted exams where dose is matched to indication/reason for exam; i.e. extremities or head) *Use of iterative reconstruction technique Total exam dose length product: 556 mGy-cm FINDINGS: No intra or extra-axial fluid collection, hemorrhage, or mass. No ventriculomegaly. No midline shift or herniation. Basal cisterns are patent. Mann-white matter differentiation is maintained. No territorial encephalomalacia. No significant volume loss. There is no abnormal attenuation within the brain parenchyma. No calvarial fracture or soft tissue abnormality. The mastoid air cells and visualized portions of the paranasal sinuses are well aerated. CT/CT head/brain wo con IMPRESSION: 1. No acute intracranial pathology.
[2022-01-16 15:18] VITALS: BP 110/60; BP 144/89; PULSE 92; PULSE 95; TEMP 36.7; O2SAT 97; O2SAT 99; BMI 29.6
--- NOTE | 2022-01-16 15:57 | ED_ITS ---
HPI - Syncope General Chief Complaint: Syncope Stated Complaint: syncope Time Seen by Provider: 01/16/22 15:40 Source: patient and other (Boyfriend, Jackson) Mode of arrival: EMS Limitations: other (Patient has no memory of her fall) History of Present Illness HPI narrative: 36-year-old female who presents emergency department for evaluation of fall in found lying in her hallway in her apartment. The patient's boyfriend,Jackson states that the family was trying to contact the patient and she was not answering her phone. Her boyfriend went to her apartment and found her lying in the hallway unresponsive. He then called EMS the patient was transported by ambulance. According to her boyfriend, the patient had to leave her apartment for several months since the apartment had a strong odor of mold in this would exacerbate her asthma. Apparently she was contacted by her landlord and told that she could move back in. The patient went back to her apartment this morning at around 11:00. She then does not remember what happened in the she only remembers her boyfriend finding her on the floor calling an ambulance. The patient currently is complaining of a cough which is nonproductive that she has had for 2-3 days. She states that she has chest tightness, she points to her sternum when asked to localize the pain, the pain is intermittent, worse with coughing and bleeding, sharp and 8/10 at its worst. She complains of shortness of breath and a headache is well. She denied fever but states she does have chills. She complains of a sore throat as well. She denied nausea, vomiting or diarrhea. The patient does have a history asthma. Patient also had a cholecystectomy 3 months prior. She has not noticed any pain or swelling in her lower extremities. MD complaint: loss of consciousness Onset (ago): unknown Description of event: other (Patient has no memory of the event) Prodromal symptoms: chest pain, shortness of breath and other (Cough) Witnessed: No Context: other (Unknown) Injuries sustained associated with event: none Current symptoms: lightheaded, headache, chest pain and shortness of breath History: other (Asthma) Treatments prior to arrival: none Related Data Home Medications Medication Instructions Recorded Confirmed fluoxetine 20 mg capsule 20 mg PO DAILY 08/18/20 12/21/20 lorazepam 0.5 mg tablet 0.5 mg PO BID PRN Anxiety 08/18/20 12/21/20 montelukast 10 mg tablet 10 mg PO BEDTIME 08/18/20 12/21/20 omeprazole 40 mg capsule,delayed 40 mg PO DAILY 08/18/20 12/21/20 release oxcarbazepine 150 mg tablet 150 mg PO BID 08/18/20 12/21/20 Previous Rx's Medication Instructions Recorded naproxen 500 mg tablet 500 mg PO BID PRN pain #20 tabs 09/28/20 albuterol sulfate 2.5 mg/3 mL 2.5 mg (3 mL) inhalation Q4-6H PRN 12/07/20 (0.083 %) solution for nebulization shortness of breath or wheezing #90 mL prednisone 20 mg tablet 40 mg PO DAILY #10 tabs 12/07/20 budesonide-formoterol HFA 80 2 puff inhalation BID #10.2 grams 12/17/20 mcg-4.5 mcg/actuation aerosol inhaler (Symbicort) fluconazole 50 mg tablet (Diflucan) 50 mg PO DAILY #1 tab 12/17/20 cyclobenzaprine 10 mg tablet 10 mg PO TID PRN muscle spasm #14 02/13/21 tabs naproxen 500 mg tablet 500 mg PO BID PRN pain #30 tabs 02/13/21 ondansetron HCl 4 mg tablet 4 mg PO Q8H PRN nausea and 02/13/21 (Zofran) vomiting #14 tabs azithromycin 250 mg tablet See Rx Instructions PO .COMPLEX #6 04/12/21 (Zithromax Z-Olman) tabs prednisone 20 mg tablet 60 mg PO DAILY 5 days #15 tabs 04/12/21 hyoscyamine sulfate 0.125 mg tablet 0.125 mg PO QID PRN dyspepsia #10 09/11/21 tabs benzonatate 100 mg capsule 100 mg PO TID PRN cough #14 caps 12/04/21 prednisone 20 mg tablet 60 mg PO DAILY 4 days #12 tabs 12/04/21 prednisone 20 mg tablet 60 mg PO DAILY 5 days #15 tabs 01/16/22 Allergies Allergy/AdvReac Type Severity Reaction Status Date / Time amoxicillin [AMOXICILLIN] Allergy Unknown RASH Verified 12/04/21 21:03 cefuroxime [From CEFTIN] Allergy Unknown HIVES, Verified 12/04/21 21:03 ANAPHYLAXIS divalproex sodium Allergy Unknown TALKS Verified 12/04/21 21:03 [From DEPAKOTE] WEIRD Penicillins [PENICILLINS] Allergy Unknown HIVES Verified 12/04/21 21:03 Review of Systems Review of Systems: Yes all other systems are reviewed and are negative [facility] Past Medical History [facility] Narrative: Social history: Asthma, depression, anxiety. Past surgical history: Cholecystectomy 3 months prior. Social history: Patient denies tobacco use. She denies alcohol use. She denies drug use. Medical History Asthma Depression No known health problems Social History Social History Alcohol intake: never Patient Tobacco Use Status: Never used Tobacco Substance Use Type: Marijuana Advance Directives: No Advance Directives Information Provided: No Physical Exam Vital Signs: Vital Signs: Last Vital Signs Temp 98.1 F 01/16/22 15:18 Pulse 95 01/16/22 15:18 BP 110/60 01/16/22 15:18 Pulse Ox 97 01/16/22 15:18 O2 Del Method 01/16/22 15:18 BMI result Body Mass Index 29.6 Const: Other: Awake, alert, appears very anxious, answers questions in a very soft voice but answers questions appropriately. She had no memory of her syncopal event and events that occurred prior to her syncope Orientation/consciousness: oriented to person and oriented to place HEENT: Head: Yes normal to inspection, Yes normocephalic and Yes atraumatic Ears: external ears normal General nose exam: Normal external nose present Face and sinus: Yes normal facial exam Mouth: Normal oral and palatal mucosa present Throat: Yes posterior oropharynx normal Eyes: General: appearance normal, both eyes and all related structures Pupils: Equal, round and reactive pupils present Neck: Neck: Yes normal visual inspection, Yes no lymphadenopathy, Yes trachea midline and Yes supple Chest: Chest palpation & inspection: normal inspection of the chest and tenderness sternum (Moderate) Resp: Effort & Inspection: able to speak in complete sentences Auscultat ion: rhonchi (Diffuse) and wheezes (Diffuse) Cardio: Rate: regular rate Rhythm: regular rhythm Heart sounds: S1 normal heart sound present, S2 normal heart sound present and no murmurs GI: Inspection: Yes normal to inspection Palpation (GI): Soft to palpation, nontender and no guarding Auscultation: normal bowel sounds : General: Yes no CVA tenderness Back/Spine/Pelvis: Back: no CVA tenderness Skin: General skin exam: no rashes or lesions noted Neuro: General: oriented to person and oriented to place Cranial nerves: Yes CN's II-XII intact bilaterally and Yes Equal, round and reactive pupils present Cognition (Neuro): normal cognition Motor exam (neuro): 5/5 motor strength present throughout Extrem: General: Yes normal to inspection Psych: Other: Patient appears anxious, her appearance is grossly normal, speech is very soft but comprehensible, no abnormal movements noted, she denies suicidal homicidal ideation Course Course Course Narrative: 36-year-old male who presents emergency department for evaluation unwitnessed syncopal episode and fall that occurred in her apartment. The patient does have a history of asthma and had to leave her apartment for several months secondary to mold. She returned today for the 1st time and was found by her boyfriend, the patient was lying in her hallway, minimally responsive. The boyfriend stat es that the apartment smelled like mold. The patient was in the apartment for approximately 4 hours by herself. Patient has had a cough for 2 days and she now complains of sternal chest pain which is worse with coughing and breathing. Patient's vital signs were normal with an O2 saturation of 97% on room air. The patient's physical examination did reveal sternal tenderness, wheezing and rhonchi on her lung exam. I ordered a CBC, CMP, PT/INR, PTT, D-dimer, COVID-19, troponin, urinalysis, urine test. Patient will be treated with Solu- Medrol 125 mg IV, Ativan 1 mg orally and albuterol inhaler 6 puffs through spacer. 2139: Patient's laboratory evaluation [place] [address] and elevated glucose of 156 otherwise was unremarkable. Patient's troponin was below detectable limits. D-dimer was below detectable limits as well. Chest x-ray was normal. CT scan of the head was unremarkable. This time I believe that the patient's symptoms were related to an asthma exacerbation caused by the mold in her apartment which then probably caused her to have a vasovagal syncopal event. The patient is feeling better after the above treatment but she still is complaining of a headache. She was ordered to get regular in 5 mg IV, Benadryl 25 mg IV, Tylenol 975 orally and aspirin 162 mg orally. Patient will be discharged home and started on a pulse dose of prednisone 60 mg once a day for 5 days. MDM - Syncope Lab Data Result diagrams: 01/16/22 20:54 01/16/22 20:54 Labs: Lab Results 01/16/22 01/16/22 01/16/22 Range/Units 20:54 20:54 20:54 WBC 13.4 H (4.8-10.8) X10*3/uL RBC 3.94 L (4.20-5.50) X10*6/uL Hgb 11.9 L (12.0-16.0) g/dl Hct 36.0 L (37.0-47.0) % MCV 91.4 (80.0-98.0) fL MCH 30.2 (27.0-33.0) pg MCHC 33.1 (31.0-35.0) g/dl RDW 12.9 (11.0-16.0) % Plt Count 287 (160-400) X10*3/uL MPV 10.6 (9.4-12.3) fL Immature Gran % (Auto) 0.4 (0.0-0.4) % Neut % (Auto) 89.5 H (45-73) % Lymph % (Auto) 8.4 L (20-40) % [place] % (Auto) 1.4 L (2-11) % Eos % (Auto) 0.1 (0-4) % Baso % (Auto) 0.2 (0-2) % Lymph # (Auto) 1.1 L (1.2-4.9) X10*3/uL [place] # (Auto) 0.2 (0.1-1.2) X10*3/uL Eos # (Auto) 0.0 (0.0-0.4) X10*3/uL Baso # (Auto) 0.0 (0.0-0.2) X10*3/uL Abs Immat Gran (auto) 0.05 H (0.00-0.03) X10*3/uL Absolute Neuts (auto) 12.0 H (2.0-8.3) x10*3/uL Absolute Nucleated RBC 0.000 (0.0-0.012) X10*3/uL Nucleated RBC % (auto) 0.0 (0.0-0.2) /100WBC PT 12.4 (10.0-13.1) SEC INR 1.1 (0.9-1.1) APTT 32.5 (26.0-36.4) SEC D-Dimer High Sensitivty < 150 NG/ML Sodium 140 (135-145) mmol/L Potassium 3.9 (3.3-5.1) mmol/L Chloride 109 H (96-108) mmol/L Carbon Dioxide 21 L (22-29) mmol/L Anion Gap 14 (12-20) BUN 11 D (9-16) mg/dL Creatinine 0.80 (0.5-1.4) mg/dL Estim Creat Clear Calc 82.5 Estimated GFR > 60 Random Glucose 156 H (60-115) mg/dL Calcium 8.5 (8.4-10.2) mg/dL Total Bilirubin 0.3 (0.0-1.0) mg/dL AST 16 (5-31) U/L ALT 19 (0-31) U/L Alkaline Phosphatase 73 (39-117) U/L Troponin I High Sens (<3.5-17.0) ng/L Total Protein 6.5 (6.5-8.0) g/dL Albumin 4.0 (3.5-5.0) g/dL Lipase 57 (8-78) U/L 01/16/22 Range/Units 20:54 WBC (4.8-10.8) X10*3/uL RBC (4.20-5.50) X10*6/uL Hgb (12.0-16.0) g/dl Hct (37.0-47.0) % MCV (80.0-98.0) fL MCH (27.0-33.0) pg MCHC (31.0-35.0) g/dl RDW (11.0-16.0) % Plt Count (160-400) X10*3/uL MPV (9.4-12.3) fL Immature Gran % (Auto) (0.0-0.4) % Neut % (Auto) (45-73) % Lymph % (Auto) (20-40) % [place] % (Auto) (2-11) % Eos % (Auto) (0-4) % Baso % (Auto) (0-2) % Lymph # (Auto) (1.2-4.9) X10*3/uL [place] # (Auto) (0.1-1.2) X10*3/uL Eos # (Auto) (0.0-0.4) X10*3/uL Baso # (Auto) (0.0-0.2) X10*3/uL Abs Immat Gran (auto) (0.00-0.03) X10*3/uL Absolute Neuts (auto) (2.0-8.3) x10*3/uL Absolute Nucleated RBC (0.0-0.012) X10*3/uL Nucleated RBC % (auto) (0.0-0.2) /100WBC PT (10.0-13.1) SEC INR (0.9-1.1) APTT (26.0-36.4) SEC D-Dimer High Sensitivty NG/ML Sodium (135-145) mmol/L Potassium (3.3-5.1) mmol/L Chloride (96-108) mmol/L Carbon Dioxide (22-29) mmol/L Anion Gap (12-20) BUN (9-16) mg/dL Creatinine (0.5-1.4) mg/dL Estim Creat Clear Calc Estimated GFR Random Glucose (60-115) mg/dL Calcium (8.4-10.2) mg/dL Total Bilirubin (0.0-1.0) mg/dL AST (5-31) U/L ALT (0-31) U/L Alkaline Phosphatase (39-117) U/L Troponin I High Sens < 3.5 (<3.5-17.0) ng/L Total Protein (6.5-8.0) g/dL Albumin (3.5-5.0) g/dL Lipase (8-78) U/L Discharge Plan Discharge Clinical Impression: Vasovagal syncope Asthma exacerbation Qualifiers: Asthma severity: moderate Headache Qualifiers: Headache chronicity pattern: acute headache Intractability: not intractable Patient Disposition: Home, Self-Care Instructions: Asthma (ED), Syncope (ED) Additional Instructions: Your blood work was unremarkable. Your chest x-ray was normal. Your CT scan of your brain was normal as well. At this time I believe that you had an asthma exacerbation triggered by the mold in her apartment which then caused due to breathe rapidly and pass out (vas ovagal syncope). Take prednisone 20 mg pills, 3 pills once a day for 5 days. While you are taking prednisone, do not take any NSAIDs (Motrin, Advil, ibuprofen, Aleve, naproxen). I do not think that you can return to her apartment since this will further exacerbate your asthma, you should discuss the mold in your apartment with your landlord Follow-up with your doctor in 2 days. Please return to the emergency department if your symptoms get worse or if you develop any symptoms that are concerning to you. Prescriptions: New prednisone 20 mg tablet 60 mg PO DAILY 5 Days Qty: 15 0RF No Action cyclobenzaprine 10 mg tablet 10 mg PO TID PRN (Reason: muscle spasm) Qty: 14 0RF naproxen 500 mg tablet 500 mg PO BID PRN (Reason: pain) Qty: 30 0RF ondansetron HCl [Zofran] 4 mg tablet 4 mg PO Q8H PRN (Reason: nausea and vomiting) Qty: 14 0RF oxcarbazepine 150 mg tablet 150 mg PO BID omeprazole 40 mg capsule,delayed release(DR/EC) 40 mg PO DAILY lorazepam 0.5 mg tablet 0.5 mg PO BID PRN (Reason: Anxiety) montelukast 10 mg tablet 10 mg PO BEDTIME fluoxetine 20 mg capsule 20 mg PO DAILY naproxen 500 mg tablet 500 mg PO BID PRN (Reason: pain) Qty: 20 0RF prednisone 20 mg tablet 40 mg PO DAILY Qty: 10 0RF albuterol sulfate 2.5 mg /3 mL (0.083 %) solution for nebulization 2.5 mg inhalation Q4-6H PRN (Reason: shortness of breath or wheezing) Qty: 90 0RF azithromycin [Zithromax Z-Olman] 250 mg tablet See Rx Instructions .ROUTE .COMPLEX Qty: 6 0RF Rx Instructions: take 500 mg today (day 1), then 250 mg for 4 days (days 2-5) prednisone 20 mg tablet 60 mg PO DAILY 5 Days Qty: 15 0RF hyoscyamine sulfate 0.125 mg tablet 0.125 mg PO QID PRN (Reason: dyspepsia) Qty: 10 0RF prednisone 20 mg tablet 60 mg PO DAILY 4 Days Qty: 12 0RF benzonatate 100 mg capsule 100 mg PO TID PRN (Reason: cough) Qty: 14 0RF budesonide-formoterol [Symbicort] 80-4.5 mcg/actuation HFA aerosol inhaler 2 puff inhalation BID Qty: 10.2 0RF fluconazole [Diflucan] 50 mg tablet 50 mg PO DAILY Qty: 1 0RF
[2022-01-16] MEDS: Albuterol Sulfate 90 MCG 8 GM INHALER 6 PUFF INHALE (16:38)
[2022-01-16] MEDS: Ketorolac Tromethamine 15 MG/ML VIAL IVPUSH (17:28)
[2022-01-16] MEDS: LORazepam 1 MG TABLET PO (17:29)
[2022-01-16] MEDS: 0.9 % Sodium Chloride 1,000 ML 999 ML IV (17:36)
[2022-01-16 21:00] LABS: MANUAL DIFF FLAG NO
[2022-01-16 21:02] LABS: Basophils Percent Auto 0.2 % (0-2); Eosinophils Percent Auto 0.1 % (0-4); Hemoglobin 11.9 g/dl (12.0-16.0); Imm Gran Abs Auto 0.05 X10*3/uL (0.00-0.03); Imm Gran Pct Auto 0.4 % (0.0-0.4); Lymphocytes Absolute Auto 1.1 X10*3/uL (1.2-4.9); Lymphocytes Percent Auto 8.4 % (20-40); Mean Corpuscular HGB Conc 33.1 g/dl (31.0-35.0); Mean Corpuscular Hemoglobin 30.2 pg (27.0-33.0); Mean Corpuscular Volume 91.4 fL (80.0-98.0); Mean Platelet Volume 10.6 fL (9.4-12.3); Monocytes Absolute Auto 0.2 X10*3/uL (0.1-1.2); Monocytes Percent Auto 1.4 % (2-11); Neutrophils Percent Auto 89.5 % (45-73); Platelet Count 287 X10*3/uL (160-400); Red Blood Count 3.94 X10*6/uL (4.20-5.50); Red Cell Distribution Width 12.9 % (11.0-16.0); White Blood Count 13.4 X10*3/uL (4.8-10.8)
[2022-01-16 21:09] LABS: INTERNATIONAL NORM RATIO 1.1 (0.9-1.1); Prothrombin Time 12.4 SEC (10.0-13.1)
[2022-01-16 21:12] LABS: Partial Thromboplastin Time 32.5 SEC (26.0-36.4)
[2022-01-16 21:17] LABS: Alanine Aminotransferase 19 U/L (0-31); Alkaline Phosphatase 73 U/L (39-117); Anion Gap 14 (12-20); Aspartate Amino Transferase 16 U/L (5-31); Bilirubin Total 0.3 mg/dL (0.0-1.0); Blood Urea Nitrogen 11 mg/dL (9-16); Calcium 8.5 mg/dL (8.4-10.2); Carbon Dioxide 21 mmol/L (22-29); Chloride 109 mmol/L (96-108); Creatinine Clr Calc Pharmacy 82.5; Estimated Glomerular Filt Rate > 60; Glucose Random 156 mg/dL (60-115); Lipase 57 U/L (8-78); Potassium 3.9 mmol/L (3.3-5.1); Sodium 140 mmol/L (135-145); Total Protein 6.5 g/dL (6.5-8.0)
[2022-01-16 21:19] LABS: D Dimer High Sensitivity < 150 NG/ML
[2022-01-16 21:21] LABS: Troponin-I High Sensitivity < 3.5 ng/L (<3.5-17.0)
[2022-01-16 22:00] VITALS: BP 121/74; PULSE 101; RESP 16; TEMP 37.4; O2SAT 95
[2022-01-16] MEDS: Acetaminophen 325 MG TABLET 975 MG PO (22:20)
[2022-01-16] MEDS: diphenhydrAMINE HCL 50 MG/ML VIAL 25 MG IVPUSH (22:21)
[2022-01-16] MEDS: Aspirin 81 MG TAB.CHEW 162 MG PO (22:21)
[2022-01-16] MEDS: Metoclopramide HCl 10 MG/2 ML VIAL IVPUSH (22:22)
== END 2022-01-16 23:13 | disposition home or self-care (01) ==
PROVIDERS: Emergency Provider Emergency Medicine Emergency Medical Services
DX: R55 Syncope and collapse (principal); J45.41 Moderate persistent asthma with (acute) exacerbation; R51.9 Headache, unspecified
CPT/HCPCS: 70450; 71045; 80053; 83690; 84484; 85025; 85379; 85610; 85730; 94640; 96361; 96374; 96375; 99284; J1200; J1885; J2765

== ENCOUNTER 2022-03-07 18:42 | Emergency (ER) | payer MEDICARE, MEDICAID, SELFPAY ==
--- NOTE | ~2022-03-07 | XR_ITS ---
EXAMINATION: XR CHEST CLINICAL INFORMATION: Shortness of breath COMPARISON: 01/16/2022 TECHNIQUE: Frontal view of the chest was obtained. FINDINGS: Low lung volumes. Bronchovascular crowding. No focal consolidation or mass. Normal pulmonary vascularity. No pleural effusion or pneumothorax. Regional skeleton intact. XR/XR chest 1V IMPRESSION: No acute pulmonary disease.
[2022-03-07 18:50] VITALS: BP 142/86; PULSE 102; PULSE 111; RESP 24; TEMP 37.1; O2SAT 100; O2SAT 97; BMI 27.5
--- NOTE | 2022-03-07 18:58 | PC.NURSE ---
patient a/ox4 . meseretrla . heart rate regular at 107 beats per minute . lungs tight with wheezes throughout . patient has non productive dry cough causing 9/10 chest pain , Provider Anur at bedside will be obtaining new orders . Patient skin pink warm and dry . Patient aware of care at this time .
[2022-03-07] MEDS: Magnesium Sulfate/H2O 2 GM/50 ML PIGGYBACK IV (19:22)
--- OUTSIDE RECORDS SUMMARY | 2022-03-07 19:24 | XMS_ITS ---
:1985 Author Care Team Providers Name Role Phone [facility] Primary Care Pro vider [phone] NAVNEET DOTY NP Primary Care Provider [phone] ANGELIC MORFIN Primary Care Provider [phone] Allergies Code Code System Name Reaction Severity Status Onset 4493 RxNorm Fluoxetine ? ? Active ? 862115 RxNorm Peanut Hives Mild to Moderate Active ? Penicillins ? ? Active ? Medications Name Status Start Date Stop Date ? ? acetaminophen 500 mg tablet Active ? Not available TAKE 2 CAPSULES BY MOUTH EVERY 8 HOURS acyclovir 400 mg tablet Completed ? 09/06/19 albuterol Active ? Not available azithromycin 250 mg tablet Completed ? 05/24 Breo Ellipta 100 mcg-25 mcg/dose powder for inhalation Completed ? 09/05/2020 bupropion HCl 75 mg tablet Completed ? 09/05 bupropion HCl SR 100 mg tablet,12 hr sustained-release Completed ? 09/05/2020 bupropion HCl SR 150 mg tablet,12 hr sustained-release Completed ? 09/05/2020 buspirone 7.5 mg tablet Active ? Not avai lable clindamycin HCl 150 mg capsule Completed ? 1 07/25/2020 clonidine HCl 0.1 mg tablet Active ? Not available clotrimazole-betamethasone 1 %-0.05 % topical cream Completed ? 09/05/2020 codeine 10 mg-guaifenesin 100 mg/5 mL oral liquid Active ? Not available TAKE 10MLS BY MOUTH EVERY 4 6 HOURS NEEDED FOR COUGH cyclobenzaprine 10 mg tablet Completed ? Daily-Saad (with folic acid) 400 mcg tablet Active ? Not available diclofenac sodium 75 mg tablet,delayed release Completed ? 09/05/2020 docusate sodium 100 mg capsule Active ? N ot available TAKE 1 CAPSULE BY MOUTH TWICE A DAY NEEDED FOR ADJUNCT TO NARCOTIC ANALGESIA doxycycline hyclate 50 mg capsule Active ? Not available TAKE 1 CAPSULE BY MOUTH TWICE A DAY FOR 10 DAYS fluconazole 150 mg tablet Active ? Not av ailable TAKE 1 TABLET BY ORAL ROUTE DIRECTED FOR 1 DAY. fluconazole 50 mg tablet Completed ? 021 fluoxetine 20 mg capsule Active ? Not jaqueline ilable TAKE 1 CAPSULE BY MOUTH EVERY DAY fluoxetine 40 mg capsule Active ? Not jaqueline ilable TAKE 1 CAPSULE BY MOUTH EVERY DAY Gas Relief (simethicone) 80 mg chewable tablet Active ? Not available CHEW 1 TABLET BY MOUTH EVERY 6 HOURS NEEDED FOR GAS PAIN/BLO ATING hydroxyzine HCl 10 mg tablet Active ? Not available TAKE 1 TABLET BY MOUTH TWICE A DAY NEEDED FOR ANXIETY hydroxyzine pamoate 25 mg capsule Completed ? 09/05/2020 hyoscyamine 0.125 mg sublingual tablet Active ? Not available DISSOLVE 2 TABLETS UNDER THE TONGUE SEBASTIÁN RY 4 HOURS NEEDED. DO NOT EXCEED 1.5 MG (12 TABS) PER DAY hyoscyamine sulfate 0.125 mg tablet Active ? Not available TAKE 1 TABLET BY MOUTH 4 TIMES A DAY NEEDED FOR DYSPEPSIA ibuprofen 800 mg tablet Completed ? 05/24/20 21 lamotrigine 25 mg tablet Active ? Not jaqueline ilable Latuda 20 mg tablet Completed ? 09/05/2020 loratadine 10 mg tablet Active ? Not avai lable Take 1 tablet every day by oral route in the morning for 30 day s. lorazepam 0.5 mg tablet Active ? Not avai lable meloxicam 15 mg tablet Completed ? methylprednisolone 4 mg tablets in a dose pack Completed ? 09/05/2020 metronidazole 0.75 % topical cream Completed ? 09/05/2020 metronidazole 500 mg tablet Completed ? 07/2020 minocycline 100 mg capsule Completed ? 09/05 montelukast 10 mg tablet Completed ? 021 naproxen 500 mg tablet Active ? Not avail able Nexplanon Completed ? 11/28/2020 nitrofurantoin monohydrate/macrocrystals 100 mg capsule Complete d ? 09/05/2020 omeprazole 20 mg capsule,delayed release Completed ? 09/05/2020 omeprazole 40 mg capsule,delayed release Completed ? 11/28/2020 ondansetron HCl 8 mg tablet Completed ? 07/2020 oxcarbazepine 150 mg tablet Active ? Not available oxycodone 5 mg tablet Active ? Not availa ble TAKE 1 TABLET (5MG) BY MOUTH EVERY 4 TO 6 HOURS NEEDED FOR SEVERE PAIN (SCALE 7-10 PAIN) prednisone 10 mg tablet Active ? Not avai lable prednisone 20 mg tablet Active ? Not avai lable prednisone 5 mg tablet Completed ? 1 28 mg iron-800 mcg tablet Active ? Not available TAKE 1 TABLET BY MOUTH EVERY DAY sucralfate 1 gram tablet Active ? Not jaqueline ilable TAKE 1 TABLET (1 G TOTAL) BY MOUTH 4 (F OUR) TIMES A DAY NEEDED (ABDOMINAL PAIN). sulfamethoxazole 800 mg-trimethoprim 160 mg tablet Completed ? 09/05/2020 Symbicort 80 mcg-4.5 mcg/actuation HFA aerosol inhaler Active ? Not available Tessalon Perles 100 mg capsule Active ? N ot available Take 1 capsule 3 times a day by oral route as needed for 7 days . topiramate 25 mg tablet Completed ? 09/06/19 21 tramadol 50 mg tablet Completed ? 09/05/2020 Ventolin HFA 90 mcg/actuation aerosol inhaler Active ? Not available INHALE 2 PUFFS INTO THE LUNGS EVERY 6 H OURS NEEDED FOR COUGH, WHEEZING OR SHORTNESS OF BREATH. Problems Name Status Onset Date Source ? 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 Asthma Active 09/20/2020 ? Procedures None recorded. Results Lab Results Date Name Specimen Result Interpretation Description Value Range Status Address ? 09/26/2021 Vaginosis Normal Bacterial ? (neg) Final [facility] Vaginitis plus Vaginosis Reference Laboratori es: [address], [place] ? ? ABNORMAL Laura ? (neg) Final [facility] te Species Group Ref erence Laboratori es: [address], [place] ? ? Normal Laura ? (neg) Final [facility] Glabrata Referenc e Laboratori es: [address], [place] ? ? Normal Trichomonas ? (neg) Final [facility] leonard Vaginalis Referen ce Laboratori es: [address], [place] ? ? ? C.trachomati ? (neg) Final [facility] s Amp Probe Refer ence Laboratori es: [address], [place] ? ? ? N.gonorrhoea ? (neg) Final [facility] e Amp Probe Refer ence Laboratori es: [address], [place] 09/26/2021 ? HCG (Ref: negative ? ? Spr - Home: Test, Urine Neg) [address], [place] ? ? ? Control Visualized ? ? Spr - Home: /Valid [address], [place] ? ? ? Location SPR, ? ? Spr - H ome: [facility] [address], [place] [facility], [address] [place] [address], [id number] 09/26/2021 Urinalysis, ? Appearance clear ? ? Spr - Home: Dipstick [address], [place] ? ? ? Color yellow ? ? Spr - Home : [address], [place] ? ? ? Glucose Neg ? ? Spr - Ho me: (Ref: Neg) [address], [place] ? ? ? Bilirubin Neg ? ? Spr - Home: (Ref: Neg) [address], [place] ? ? ? Ketones Neg ? ? Spr - Ho me: (Ref: Neg) [address], [place] ? ? ? Specific 1.030 ? ? Spr - H ome: [place] (Ref: [address], 1.003 - West 1.035) [place] ? ? ? Blood (Ref: ? ? ? Spr - Home: Neg) [address], [place] ? ? ? pH (Ref: 5.0 ? ? Spr - H ome: 5.0-7.0) [address], [place] ? ? ? Protein Neg ? ? Spr - Ho me: (Ref: Neg) [address], [place] ? ? ? Urobilinogen 0.2 ? ? Spr - Home: (Ref: [address], 0.2-1.0) [place] ? ? ? Nitrites negative ? ? Spr - Home: (Ref: Neg) [address], [place] ? ? ? Leukocytes Neg ? ? Spr - Home: (Ref: Neg) [address], [place] ? ? ? Location SPR, ? ? Spr - H ome: [facility] [address], [place] [facility], [address], [place] [address], [id number] 05/24/2021 Covid-19 ? Covid-19 PCR ? (neg) Kaykay Santos (Novel Result Reference Coronavirus) Labo ratories: PCR [address], [place] ? ? ? Covid-19 PCR nasal ? Final [facility] Specimen Referenc e Source Laboratori es: [address], [place] 05/24/2021 Rapid SARS CoV ? Covid-19 negative ? ? Spr - Home: 2 Ag, QL [place], (Ref: Neg) [address], Respiratory [place] Specimen [place] ? ? ? Control Visualized ? ? Spr - Home: /Valid [address], [place] 04/28/2021 Covid-19 ? Covid-19 PCR ? (neg) Kaykay Santos (Novel Result Reference Coronavirus) Labo ratories: PCR [address], [place] ? ? ? Covid-19 PCR nasal ? Final [facility] Specimen Referenc e Source Laboratori es: [address], [place] 09/20/2020 Covid-19 ? Covid-19 PCR ? (neg) Kaykay Santos (Novel Result Reference Coronavirus) Labo ratories: PCR [address], [place] ? ? ? Covid-19 PCR nasal ? Final [facility] Specimen Referenc e Source Laboratori es: [address], [place] 09/20/2020 Streptococcus ? Specimen throat ? Fin al [facility] Group a, Description swab Ref erence Culture, Laborato jose: Throat [address], [place] ? ? ? Special none ? Final [facility] Requests Referenc e Laboratori es: [address], [place] ? ? ? Culture no group A ? Final [facility] leonard beta Reference hemolytic Laborat ories: streptococ [address], isolated [place] ? ? ? Report final ? Final [facility] Status 09/22/2020 Refere nce Laboratori es: [address], [place] 09/05/2020 Covid-19 ? Covid-19 PCR ? (neg) Kaykay mai [facility] (Novel Result Reference Coronavirus) Labo ratories: PCR [address], [place] ? ? ? Covid-19 PCR nasal ? Final [facility] Specimen Referenc e Source Laboratori es: [address], [place] ? Rapid Flu ? Flu a negative ? ? Spr - Home: (A+B) [address], [place] ? ? ? Flu B negative ? ? Spr - Ho me: [address], [place] ? ? ? Control Visualized ? ? Spr - Home: / Valid [address], [place] Past Encounters 09/26/2021 Pruritus of Vagina; Candidiasis of Vagin a Kat Fang, PERIPHERAL VASCULAR TECH: [address] [place], [place] , Ph. [phone] 05/24/2021 Dry Cough; Viral Syndrome Vince Hutton PERIPHERAL VASCULAR TECH: [address] [place], [place] , Ph. [phone] 04/28/2021 Exposure to SARS-CoV-2; Cough; Acute Bro nchitis; Exposure to Communicable Disease Sedrick Alonso PA: [address] [place], [place] , Ph. [phone] 12/10/2020 Persistent Cough Juana Lacey PA: [address] [place], [place] , Ph. [phone] 11/28/2020 Cough Bridger Marti, PERIPHERAL VASCULAR TECH: [address] [place], [place] , Ph. [phone] 09/20/2020 Acute Pharyngitis Nolvia Mendoza PERIPHERAL VASCULAR TECH: [address] [place], [place] , Ph. [phone] 09/05/2020 Viral Upper Respiratory Tract Infection Juana Lacey PA: [address] [place], [place] , Ph. [phone] Social History Tobacco Smoking Status Never Smoker Vaccine List None recorded. Plan of Care Patient Instructions [facility] came to your home for e valuation of vaginal itching. We collected a swab from you to test you . We checked your urine and it is unremark able We checked your urine for and it was negative. We are going to treat you for presumed y east infection. You will be called with any results in t he next 3-5 days. If you have any abdominal pain, fevers, chills or feel worse, please get re-evaluated. . Viral Illness Discharge Instructions BASIC INFORMATION A viral infection can range anywhere bet ween a common cold and influenza. Most viruses will respond to a combination of time and supportive care. Viruses are eliminated by the bodies immune system and d o not respond to antibiotics. Viruses ca n cause many different symptoms including runny stuffy nose, sore throat, headache, fever, body aches, cough, nausea, vomiting,diarrhea. Most of the viral illness es are spread by hand to face contact, a nd the rest are spread through sneezing and coughing which releases virus into the air. Over the counter medications can help to relieve annoying symptoms. Occasi onally having a virus may cause a second nitish bacterial infection such as ear infections, pneumonia, sinusitis. INSTRUCTIONS Keeping your body as healthy as possible will help to limit your illness. Get plenty of rest Drink lots of fluids (water, herbal tea, gatorade) Reduce your risk of getting or giving a cold by avoiding touching your face with your hands. When you cough and sneeze cover your iris th/nose by placing your elbow or upper arm over the area rather than using your hand. Use a teaspoon of honey(avoid organic ho silverio in infants and small children < 1 year) at bedtime to soothe your throat and ease cough. Sleep with head of bed elevated to promo te drainage of secretions. Hot showers and humidifiers can help to loosen secretions. Tylenol over the counter can be helpful for aches and fever. Suck on hard, sugar-free candy during e day to keep the throat moist. MEDICATIONS Over the counter remedies are not recomm ended for young children, but can help relieve symptoms temporarily in adults. In general it is better to take only the medication you need rather than using comb ination products that contain ingredient s that are unnecessary and may cause side effects. 1. Antihistamines (Benadryl, Chlor-Trime ton, Zyrtec, Claritin, Claudia) reduce secretions, but can cause drowsiness and sedation, do not drink alcohol or drive while taking these medications. 2. Decongestants (Phenylephrine, Sudafed ) can help to shrink swollen nasal passages and dry secretions, but may cause palpitations, anxiety,and are not safe for people with High blood pressure or heart arrhythmias. 3. Topical Decongestants (Afrin/Nathen-syne phrine) can be very helpful for acute relief of nasal swelling and runny nose, HOWEVER they should not be used regularly for more than 3 days as they will cause rebound congestion if over-used. 4. Cough aids generally contain DM( Dext romethorphan) which is a cough suppressant and Guaifenesin which is an expectorant. While the DM portion can be helpful for suppressing the cough, guaifenesin, pa rticularly as dosed in Mucinex like prod ucts has minimal effect and may cause nausea. 5. Tamiflu an anti-viral agent may be pr escribed if you are diagnosed with influenza. Viral symptoms usually last between 5-10 days, it is not uncommon to have a mild cough for up to 6 weeks afterward. If you have been diagnosed with influenz a you should minimize your contact with others. You may return to work/school after 24 hours of being fever free without medication (usually 5-10 days). FOLLOW UP if your symptoms are not improving in 7- 10 days If you have severe ear pain, sinus pain, cough productive large amounts of mucus, wheezing. You have underlying medical problems chandu t may become worse as a result of your viral illness (asthma, diabetes, COPD) and need to follow up to ensure you are improving. SEEK CARE IMMEDIATELY IF 1 Severe headache unresponsive to Tyleno l or severe neck stiffness 2. Confusion 3. Severe chest pain 4. Difficulty breathing 5. Persistent vomiting 6. Cough productive large amounts of spu charanjit or blood 7. Inability to keep liquids down 8. Fever unresponsive to medication over 102 If you develop any new or worsening symp toms and need after hours care, please go to nearest ER and/or call 911. If you have additional concerns or develop a change in your condition between 8am-10pm, manan grace call [facility] at [phone] to help navigate your care. Thank you for your visit with [facility] today. We cannot always find the exact cause of your symptoms during your initial visit. Please follow up with your primary care provider or specialist with in 24-48 hours to be rechecked or seek m edical attention if your symptoms do not go away or get worse. If you develop any new or worsening symptoms and need after hours care, please go to nearest ER and/or call 911. If you have additional concerns or deve lop a change in your condition between 8am-10pm, please call [facility] at [phone] to help navigate your care. Inhaler Instructions Before use, you need to prime the inhal er: ? Take the cap off the mouthpiece and put the inhaler in the spacer ? Shake the inhaler for 5 seconds ? Hold the inhaler upright with 1 f isabela on the top of the canister, the th umb on the bottom of the inhaler, and your other hand holding the spacer ? Express a large breath ? Close lips around spacer ? Press down on the canister ? After you press down on t he canister, breathe (or have your child breathe in) deeply and slowly and hold your breath for 10 seconds ? Take out of your mouth and slowly exhal e ? If you were instructed to take 2 puf fs of the inhaler, wait one minute before you give the second puff. Shake the inhaler again before the second puff. ? If the inhaler is a steroid me dicine (also called a ?glucocorticoid? o r ?corticosteroid?), rinse out your mouth, gargle, and spit out the water Cleaning: If you use the inhaler every day, you need to arelis n it at least once a week. If you use le ss often, clean the inhaler when you see powder in or around the hole. To clean an inhaler: ? Remove the canister and cap from the mouthpiece. Do not wash the canister or put the canister under w ater. ? Run warm water through the mouthpiece for 30 to 60 seconds ? Shake the water off of the mouthpiece and let it air dry Clean the spacer every 1-2 weeks. First, remove the inhaler fr om the spacer. Wash the spacer with warm water and dishwashing soap, but do NOT rinse it. Then let it air dry. Leaving the spacer a little soapy after cleaning actually helps it work better. Please seek care immediately if you dev elop any of the following symptoms: 1. Uncontrolled fever of at least 101?F or 38.4?C 2. Throat pain that is severe or does no t start to improve within 5 to 7 days Call 911 or go to the emergency departm ent if you: 1. Have trouble breathing 2. Cannot control your saliva (drooling) due to difficulty swallowing 3. Have swelling of the neck or tongue 4. Cannot move your neck or have trouble opening your mouth If you have additional concerns or develop a change in your condition between 8am-10pm, please [facility] at [phone] to help navigate your care. Reminders Provider Appointments None recorded. ? ? Lab None recorded. ? ? Referral None recorded. ? ? Procedures None recorded. ? ? Surgeries None recorded. ? ? Imaging None recorded. ? ? Vitals 09/26/2021 02:48PM D06 Established Patient Blood Pressure 124/90 mm[Hg] 05/24/2021 04:58PM D06 Established Patient Blood Pressure 132/88 mm[Hg] 04/28/2021 08:59PM D06 Established Patient Blood Pressure 126/88 mm[Hg] 12/10/2020 03:10PM D06 Established Patient Blood Pressure 118/74 mm[Hg] 11/28/2020 06:27PM D06 Established Patient Blood Pressure 120/80 mm[Hg] 09/20/2020 11:36AM D06 New Patient Blood Pressure 128/74 mm[Hg] 09/05/2020 07:35PM D06 New Patient Blood Pressure 140/74 mm[Hg]
--- NOTE | 2022-03-07 19:57 | PC.NURSE ---
Respiratory contacted for neb.
[2022-03-07] MEDS: Albuterol Sulfate 7.5 MG, Albuterol/Iprat 2.5/0.5MG 3 ML 3 ML INHALE (20:04)
[2022-03-07 20:07] VITALS: PULSE 69; RESP 16; O2SAT 96
[2022-03-07 20:15] LABS: MANUAL DIFF FLAG NO
[2022-03-07 20:20] LABS: Basophils Percent Auto 0.3 % (0-2); Eosinophils Absolute Auto 0.2 X10*3/uL (0.0-0.4); Hematocrit 38.3 % (37.0-47.0); Hemoglobin 12.7 g/dl (12.0-16.0); Imm Gran Abs Auto 0.08 X10*3/uL (0.00-0.03); Imm Gran Pct Auto 0.5 % (0.0-0.4); Lymphocytes Absolute Auto 2.1 X10*3/uL (1.2-4.9); Lymphocytes Percent Auto 13.2 % (20-40); Mean Corpuscular HGB Conc 33.2 g/dl (31.0-35.0); Mean Corpuscular Hemoglobin 30.3 pg (27.0-33.0); Mean Corpuscular Volume 91.4 fL (80.0-98.0); Mean Platelet Volume 10.6 fL (9.4-12.3); Monocytes Absolute Auto 0.4 X10*3/uL (0.1-1.2); Monocytes Percent Auto 2.7 % (2-11); Neutrophils Absolute Auto 12.8 x10*3/uL (2.0-8.3); Neutrophils Percent Auto 82.3 % (45-73); Platelet Count 308 X10*3/uL (160-400); Red Blood Count 4.19 X10*6/uL (4.20-5.50); Red Cell Distribution Width 13.2 % (11.0-16.0); White Blood Count 15.5 X10*3/uL (4.8-10.8)
[2022-03-07 20:33] LABS: COVID-19 Test Negative (Negative); IDNOW Serial# 16C4AD1C
[2022-03-07 20:33] LABS: Anion Gap 16 (12-20); Blood Urea Nitrogen 8 mg/dL (9-16); Carbon Dioxide 24 mmol/L (22-29); Chloride 106 mmol/L (96-108); Creatinine Clr Calc Pharmacy 93.1; Estimated Glomerular Filt Rate > 60; Glucose Random 124 mg/dL (60-115); Potassium 3.8 mmol/L (3.3-5.1); Sodium 142 mmol/L (135-145)
--- NOTE | 2022-03-07 21:19 | ED_ITS ---
HPI - SOB/Dyspnea General Chief Complaint: Dyspnea Stated Complaint: difficulty breathing Time Seen by Provider: 03/07/22 18:57 Source: patient Mode of arrival: ambulatory Limitations: no limitations History of Present Illness HPI Narrative: Patient with history of asthma went to her apartment to get the blanket got increased shortness of breath since then possible mold increasing wheezing since then tried her rescue inhaler without much response received Solu-Medrol and DuoNeb treatment by EMS saturating 97% at room air feels chest tightness with dry cough Related Data Home Medications Medication Instructions Recorded Confirmed fluoxetine 20 mg capsule 20 mg PO DAILY 08/18/20 12/21/20 lorazepam 0.5 mg tablet 0.5 mg PO BID PRN Anxiety 08/18/20 12/21/20 montelukast 10 mg tablet 10 mg PO BEDTIME 08/18/20 12/21/20 omeprazole 40 mg capsule,delayed 40 mg PO DAILY 08/18/20 12/21/20 release oxcarbazepine 150 mg tablet 150 mg PO BID 08/18/20 12/21/20 Previous Rx's Medication Instructions Recorded naproxen 500 mg tablet 500 mg PO BID PRN pain #20 tabs 09/28/20 albuterol sulfate 2.5 mg/3 mL 2.5 mg (3 mL) inhalation Q4-6H PRN 12/07/20 (0.083 %) solution for nebulization shortness of breath or wheezing #90 mL prednisone 20 mg tablet 40 mg PO DAILY #10 tabs 12/07/20 budesonide-formoterol HFA 80 2 puff inhalation BID #10.2 grams 12/17/20 mcg-4.5 mcg/actuation aerosol inhaler (Symbicort) fluconazole 50 mg tablet (Diflucan) 50 mg PO DAILY #1 tab 12/17/20 cyclobenzaprine 10 mg tablet 10 mg PO TID PRN muscle spasm #14 02/13/21 tabs naproxen 500 mg tablet 500 mg PO BID PRN pain #30 tabs 02/13/21 ondansetron HCl 4 mg tablet 4 mg PO Q8H PRN nausea and 02/13/21 (Zofran) vomiting #14 tabs azithromycin 250 mg tablet See Rx Instructions PO .COMPLEX #6 04/12/21 (Zithromax Z-Olman) tabs prednisone 20 mg tablet 60 mg PO DAILY 5 days #15 tabs 04/12/21 hyoscyamine sulfate 0.125 mg tablet 0.125 mg PO QID PRN dyspepsia #10 09/11/21 tabs benzonatate 100 mg capsule 100 mg PO TID PRN cough #14 caps 12/04/21 prednisone 20 mg tablet 60 mg PO DAILY 4 days #12 tabs 12/04/21 prednisone 20 mg tablet 60 mg PO DAILY 5 days #15 tabs 01/16/22 benzonatate 200 mg capsule 200 mg PO TID PRN cough #30 caps 03/07/22 doxycycline hyclate 100 mg tablet 100 mg PO BID #20 tabs 03/07/22 Allergies Allergy/AdvReac Type Severity Reaction Status Date / Time amoxicillin [AMOXICILLIN] Allergy Unknown RASH Verified 12/04/21 21:03 cefuroxime [From CEFTIN] Allergy Unknown HIVES, Verified 12/04/21 21:03 ANAPHYLAXIS divalproex sodium Allergy Unknown TALKS Verified 12/04/21 21:03 [From DEPAKOTE] WEIRD Penicillins [PENICILLINS] Allergy Unknown HIVES Verified 12/04/21 21:03 Review of Systems Review of Systems: Yes all other systems are reviewed and are negative FOR[facility]LY [facility] Past Medical History Medical History Asthma Depression No known health problems Social History Social History Alcohol intake: never Patient Tobacco Use Status: Never used Tobacco Substance Use Type: Marijuana Advance Directives: No Physical Exam Vital Signs: Vital Signs: Last Vital Signs Temp 97.6 F 03/07/22 22:29 Pulse 108 H 03/07/22 22:29 Resp 20 03/07/22 22:29 BP 108/86 03/07/22 22:29 Pulse Ox 98 03/07/22 22:29 O2 Del Method 03/07/22 22:29 BMI result Body Mass Index 27.5 Appearance: Alert. Oriented X3. No acute distress. Eyes: PERRLA, No Nystagmus ENT: Pharynx normal. Oral Mucosa moist Neck: Normal inspection. Neck supple. CVS: Normal heart rate and rhythm. Pulses normal. Respiratory: mod respiratory distress. , bilateral wheezing, decreased air entry bilateral Abdomen: Soft and nontender. Bowel sounds are present, no mass palpable, Skin: Skin warm and dry. Normal skin color. Normal skin turgor. Extremities: No lower extremity edema. No calf tenderness Neuro: Oriented X 3. No motor deficit. MDM - SOB/Dyspnea MDM Narrative Medical decision making narrative: 2300 Patient with acute asthma requiring 2 hour long continuous treatment supportive treatment been coughing a lot will give her doxycycline and prednisone patient saturating 96-97% at room air Differential Diagnosis Differential diagnosis: Likely acute exacerbation of chronic obstructive airways disease, pneumonia and asthma with exacerbation Lab Data Attestation: I reviewed the patient's lab results. Result diagrams: 03/07/22 20:10 03/07/22 20:10 Labs: Lab Results 03/07/22 03/07/22 03/07/22 Range/Units 20:10 20:10 20:11 WBC 15.5 H (4.8-10.8) X10*3/uL RBC 4.19 L (4.20-5.50) X10*6/uL Hgb 12.7 (12.0-16.0) g/dl Hct 38.3 (37.0-47.0) % MCV 91.4 (80.0-98.0) fL MCH 30.3 (27.0-33.0) pg MCHC 33.2 (31.0-35.0) g/dl RDW 13.2 (11.0-16.0) % Plt Count 308 (160-400) X10*3/uL MPV 10.6 (9.4-12.3) fL Immature Gran % (Auto) 0.5 H (0.0-0.4) % Neut % (Auto) 82.3 H (45-73) % Lymph % (Auto) 13.2 L (20-40) % [place] % (Auto) 2.7 (2-11) % Eos % (Auto) 1.0 (0-4) % Baso % (Auto) 0.3 (0-2) % Lymph # (Auto) 2.1 (1.2-4.9) X10*3/uL [place] # (Auto) 0.4 (0.1-1.2) X10*3/uL Eos # (Auto) 0.2 (0.0-0.4) X10*3/uL Baso # (Auto) 0.0 (0.0-0.2) X10*3/uL Abs Immat Gran (auto) 0.08 H (0.00-0.03) X10*3/uL Absolute Neuts (auto) 12.8 H (2.0-8.3) x10*3/uL Absolute Nucleated RBC 0.000 (0.0-0.012) X10*3/uL Nucleated RBC % (auto) 0.0 (0.0-0.2) /100WBC Sodium 142 (135-145) mmol/L Potassium 3.8 (3.3-5.1) mmol/L Chloride 106 (96-108) mmol/L Carbon Dioxide 24 (22-29) mmol/L Anion Gap 16 (12-20) BUN 8 L (9-16) mg/dL Creatinine 0.83 (0.5-1.4) mg/dL Estim Creat Clear Calc 93.1 Estimated GFR > 60 Random Glucose 124 H (60-115) mg/dL Calcium 9.0 (8.4-10.2) mg/dL COVID-19 (ANGI) Negative (Negative) COVID-19 Clin Com See Note Critical Care Time Critical Care Time Critical Care Time: Yes Total Critical Care Time: 65 Attestation: I spent 65 minutes of critical care, with interventions, assessments, speaking to patient, consultants, and family. Discharge Plan Discharge Clinical Impression: Acute asthmatic bronchitis Patient Disposition: Home, Self-Care Instructions: Acute Bronchitis (ED) Additional Instructions: Continue use inhaler and nebulizing treatment every four hrs as needed Antibiotics and prednisone as prescribed Take cough drops Follow with PCP if not better Prescriptions: New benzonatate 200 mg capsule 200 mg PO TID PRN (Reason: cough) Qty: 30 0RF doxycycline hyclate 100 mg tablet 100 mg PO BID Qty: 20 0RF No Action cyclobenzaprine 10 mg tablet 10 mg PO TID PRN (Reason: muscle spasm) Qty: 14 0RF naproxen 500 mg tablet 500 mg PO BID PRN (Reason: pain) Qty: 30 0RF ondansetron HCl [Zofran] 4 mg tablet 4 mg PO Q8H PRN (Reason: nausea and vomiting) Qty: 14 0RF oxcarbazepine 150 mg tablet 150 mg PO BID omeprazole 40 mg capsule,delayed release(DR/EC) 40 mg PO DAILY lorazepam 0.5 mg tablet 0.5 mg PO BID PRN (Reason: Anxiety) montelukast 10 mg tablet 10 mg PO BEDTIME fluoxetine 20 mg capsule 20 mg PO DAILY naproxen 500 mg tablet 500 mg PO BID PRN (Reason: pain) Qty: 20 0RF prednisone 20 mg tablet 40 mg PO DAILY Qty: 10 0RF albuterol sulfate 2.5 mg /3 mL (0.083 %) solution for nebulization 2.5 mg inhalation Q4-6H PRN (Reason: shortness of breath or wheezing) Qty: 90 0RF azithromycin [Zithromax Z-Olman] 250 mg tablet See Rx Instructions .ROUTE .COMPLEX Qty: 6 0RF Rx Instructions: take 500 mg today (day 1), then 250 mg for 4 days (days 2-5) prednisone 20 mg tablet 60 mg PO DAILY 5 Days Qty: 15 0RF hyoscyamine sulfate 0.125 mg tablet 0.125 mg PO QID PRN (Reason: dyspepsia) Qty: 10 0RF prednisone 20 mg tablet 60 mg PO DAILY 4 Days Qty: 12 0RF benzonatate 100 mg capsule 100 mg PO TID PRN (Reason: cough) Qty: 14 0RF prednisone 20 mg tablet 60 mg PO DAILY 5 Days Qty: 15 0RF budesonide-formoterol [Symbicort] 80-4.5 mcg/actuation HFA aerosol inhaler 2 puff inhalation BID Qty: 10.2 0RF fluconazole [Diflucan] 50 mg tablet 50 mg PO DAILY Qty: 1 0RF Interventions: ED Discharge Assessment Last Done: 03/07/22 23:40 Discharge Date/Time: 03/07/22 23:40
[2022-03-07] MEDS: Ketorolac Tromethamine 30 MG/ML VIAL IVPUSH (21:32)
[2022-03-07] MEDS: guaiFEN/Codeine SF 200/20/10ML 10 ML LIQUID PO (21:32)
[2022-03-07 22:29] VITALS: BP 108/86; PULSE 108; RESP 20; TEMP 36.4; O2SAT 98
[2022-03-07] MEDS: Albuterol Sulfate 90 MCG 8 GM INHALER 4 PUFF INHALE (23:31)
[2022-03-07] MEDS: Benzonatate 100 MG CAPSULE 200 MG PO (23:31)
--- NOTE | 2022-03-08 10:45 | ECG_ITS ---
Test Reason : CHEST PAIN Blood Pressure : / mmHG Vent. Rate : 109 BPM Atrial Rate : 109 BPM P-R Int : 132 ms QRS Dur : 064 ms QT Int : 332 ms P-R-T Axes : 049 006 050 degrees QTc Int : 447 ms Sinus tachycardia Otherwise normal ECG When compared with ECG of 19-DEC-2020 13:08, No significant change was found Referred By: Luca Rodrigues Electronically Signed By:GORDON JUNG
== END 2022-03-07 23:40 | disposition home or self-care (01) ==
PROVIDERS: Emergency Provider Internal Medicine; PCP Nurse Practitioner Family
DX: J20.9 Acute bronchitis, unspecified (principal); R06.02 Shortness of breath; Z20.822 Contact with and (suspected) exposure to COVID-19; Z79.899 Other long term (current) drug therapy
CPT/HCPCS: 71045; 80048; 85025; 87635; 93005; 94640; 96374; 96375; 99284; 99285; J1885; J3475

== ENCOUNTER 2022-06-01 12:41 | Emergency (ER) | payer MEDICARE, MEDICAID, SELFPAY ==
[2022-06-01 12:50] VITALS: BP 133/84; PULSE 93; O2SAT 98
[2022-06-01 14:42] VITALS: BP 115/74; PULSE 96; RESP 18; TEMP 36.7; O2SAT 98; BMI 24.7
--- NOTE | 2022-06-01 14:42 | ED.ABDPAIN ---
HPI - Abdominal Pain General Chief Complaint: General Medical <CARLEEN Ndiaye - Last Filed: 06/01/22 14:44> Stated Complaint: Abd pain x 2 days per EMS <CARLEEN Ndiaye - Last Filed: 06/01/22 14:44> Time Seen by Provider: 06/01/22 18:16 <CARLEEN Ndiaye - Last Filed: 06/01/22 14:44> Source: patient <Luca Rodrigues MD - Last Filed: 06/01/22 22:51> Mode of arrival: ambulatory <Luca Rodrigues MD - Last Filed: 06/01/22 22:51> Limitations: no limitations <Luca Rodrigues MD - Last Filed: 06/01/22 22:51> History of Present Illness HPI narrative: Patient with history of anxiety and asthma status post cholecystectomy complaining of pain in epigastric area for last 3 -4 days patient used to take omeprazole which she ran out of it last month feel nauseated no diarrhea no fever or chills no urinary complaints the patient is seen here for similar complaints in 09/[address] scan of the abdomen was negative <Luca Rodrigues MD - Last Filed: 06/01/22 22:51> Related Data Home Medications: Home Medications Medication Instructions Recorded Confirmed fluoxetine 20 mg capsule 20 mg PO DAILY 08/18/20 12/21/20 lorazepam 0.5 mg tablet 0.5 mg PO BID PRN Anxiety 08/18/20 12/21/20 montelukast 10 mg tablet 10 mg PO BEDTIME 08/18/20 12/21/20 omeprazole 40 mg capsule,delayed 40 mg PO DAILY 08/18/20 12/21/20 release oxcarbazepine 150 mg tablet 150 mg PO BID 08/18/20 12/21/20 Previous Rx's Medication Instructions Recorded naproxen 500 mg tablet 500 mg PO BID PRN pain #20 tabs 09/28/20 albuterol sulfate 2.5 mg/3 mL 2.5 mg (3 mL) inhalation Q4-6H PRN 12/07/20 (0.083 %) solution for nebulization shortness of breath or wheezing #90 mL prednisone 20 mg tablet 40 mg PO DAILY #10 tabs 12/07/20 budesonide-formoterol HFA 80 2 puff inhalation BID #10.2 grams 12/17/20 mcg-4.5 mcg/actuation aerosol inhaler (Symbicort) fluconazole 50 mg tablet (Diflucan) 50 mg PO DAILY #1 tab 12/17/20 cyclobenzaprine 10 mg tablet 10 mg PO TID PRN muscle spasm #14 02/13/21 tabs naproxen 500 mg tablet 500 mg PO BID PRN pain #30 tabs 02/13/21 ondansetron HCl 4 mg tablet 4 mg PO Q8H PRN nausea and 02/13/21 (Zofran) vomiting #14 tabs azithromycin 250 mg tablet See Rx Instructions PO .COMPLEX #6 04/12/21 (Zithromax Z-Olman) tabs prednisone 20 mg tablet 60 mg PO DAILY 5 days #15 tabs 04/12/21 hyoscyamine sulfate 0.125 mg tablet 0.125 mg PO QID PRN dyspepsia #10 09/11/21 tabs benzonatate 100 mg capsule 100 mg PO TID PRN cough #14 caps 12/04/21 prednisone 20 mg tablet 60 mg PO DAILY 4 days #12 tabs 12/04/21 prednisone 20 mg tablet 60 mg PO DAILY 5 days #15 tabs 01/16/22 benzonatate 200 mg capsule 200 mg PO TID PRN cough #30 caps 03/07/22 doxycycline hyclate 100 mg tablet 100 mg PO BID #20 tabs 03/07/22 dicyclomine 20 mg tablet 20 mg PO QID PRN abdominal pain 06/01/22 #20 tabs lorazepam 1 mg tablet (Ativan) 1 mg PO BEDTIME PRN anxiety #14 06/01/22 tabs omeprazole 40 mg capsule,delayed 40 mg PO DAILY #30 caps 06/01/22 release sucralfate 1 gram tablet 1 g PO BID #60 tabs 06/01/22 <CARLEEN Ndiaye - Last Filed: 06/01/22 14:44> Allergies/Adverse Reactions: Allergies Allergy/AdvReac Type Severity Reaction Status Date / Time amoxicillin [AMOXICILLIN] Allergy Unknown RASH Verified 06/01/22 14:47 cefuroxime [From CEFTIN] Allergy Unknown HIVES, Verified 06/01/22 14:47 ANAPHYLAXIS divalproex sodium Allergy Unknown TALKS Verified 06/01/22 14:47 [From DEPAKOTE] WEIRD Penicillins [PENICILLINS] Allergy Unknown HIVES Verified 06/01/22 14:47 <CARLEEN Ndiaye - Last Filed: 06/01/22 14:44> Review of Systems Review of Systems Yes all other systems are reviewed and are negative <Luca Rodrigues MD - Last Filed: 06/01/22 22:51> [facility] Past Medical History Medical History: Medical History Asthma Depression No known health problems <CARLEEN Ndiaye - Last Filed: 06/01/22 14:44> Social History Social History: Social History Alcohol intake: never Patient Tobacco Use Status: Never used Tobacco Substance Use Type: Marijuana Advance Directives: No Advance Directives Information Provided: No <CARLEEN Ndiaye - Last Filed: 06/01/22 14:44> Physical Exam ED Vital Signs: Vital Signs - 24 hr 06/01/22 14:42 06/01/22 18:44 06/01/22 20:34 Temperature 98.0 F 98.3 F Pulse Rate 96 84 82 Respiratory Rate 18 16 16 Blood Pressure 115/74 119/76 113/74 Pulse Oximetry 98 99 98 Oxygen Delivery Method Room Air Room Air Room Air BMI result Body Mass Index 24.7 <CARLEEN Ndiaye - Last Filed: 06/01/22 14:44> Vital Signs - 24 hr 06/01/22 14:42 06/01/22 18:44 06/01/22 20:34 Temperature 98.0 F 98.3 F Pulse Rate 96 84 82 Respiratory Rate 18 16 16 Blood Pressure 115/74 119/76 113/74 Pulse Oximetry 98 99 98 Oxygen Delivery Method Room Air Room Air Room Air BMI result Body Mass Index 24.7 <Luca Rodrigues MD - Last Filed: 06/01/22 22:51> Appearance: Alert. Oriented X3. No acute distress. Anxious Eyes: No pallor or icterus ENT: Pharynx normal. Oral Mucosa moist Neck: Normal inspection. Neck supple. CVS: Normal heart rate and rhythm. Pulses normal. Respiratory: No respiratory distress. Equal air entry bilateral, no wheezing/rales/rhonchi Abdomen: Soft, tenderness in epigastric area no rebound tenderness or guarding. Bowel sounds are present, no mass palpable, no CVA tenderness Skin: Skin warm and dry. Normal skin color. Normal skin turgor. Extremities: No lower extremity edema. No calf tenderness Neuro: Oriented X 3. <Luca Rodrigues MD - Last Filed: 06/01/22 22:51> Course Course Course Narrative: RME: 36 year old female presents w/ 4-5 days of LLQ abd pain w/ anorexia. Also vague complaints of intermittent sharp chest pain. No hx of diverticulitis. Drinks socially. Hx of cholecysectomy. PE: rapid exam benign with VSS. Plan: abd ct, labs, urine, preg, trop, ekg. <CARLEEN Ndiaye - Last Filed: 06/01/22 14:44> Medical Decision Making Medical Decision Making [facility] Narrative: Patient with anxiety off and on abdominal with history gastritis comes here diffuse abdominal pain nausea with no vomiting. Patient very anxious on arrival workup was negative likely patient has IBS with anxiety patient status post cholecystectomy <Luca Rodrigues MD - Last Filed: 06/01/22 22:51> Lab Data [facility] Lab Attestation statement: I reviewed the patient's lab results. <Luca Rodrigues MD - Last Filed: 06/01/22 22:51> Result Diagrams: : 06/01/22 15:12 06/01/22 15:12 <CARLEEN Ndiaye - Last Filed: 06/01/22 14:44> Labs: Lab Results 06/01/22 06/01/22 06/01/22 Range/Units 15:12 15:12 15:12 WBC 11.2 H (4.8-10.8) X10*3/uL RBC 4.41 (4.20-5.50) X10*6/uL Hgb 13.4 (12.0-16.0) g/dl Hct 41.1 (37.0-47.0) % MCV 93.2 (80.0-98.0) fL MCH 30.4 (27.0-33.0) pg MCHC 32.6 (31.0-35.0) g/dl RDW 12.8 (11.0-16.0) % Plt Count 345 (160-400) X10*3/uL MPV 10.7 (9.4-12.3) fL Immature Gran % (Auto) 0.4 (0.0-0.4) % Neut % (Auto) 66.2 (45-73) % Lymph % (Auto) 24.5 (20-40) % Howell % (Auto) 6.2 (2-11) % Eos % (Auto) 2.3 (0-4) % Baso % (Auto) 0.4 (0-2) % Lymph # (Auto) 2.8 (1.2-4.9) X10*3/uL Howell # (Auto) 0.7 (0.1-1.2) X10*3/uL Eos # (Auto) 0.3 (0.0-0.4) X10*3/uL Baso # (Auto) 0.0 (0.0-0.2) X10*3/uL Abs Immat Gran (auto) 0.04 H (0.00-0.03) X10*3/uL Absolute Neuts (auto) 7.4 (2.0-8.3) x10*3/uL Absolute Nucleated RBC 0.000 (0.0-0.012) X10*3/uL Nucleated RBC % (auto) 0.0 (0.0-0.2) /100WBC Sodium 141 (135-145) mmol/L Potassium 4.2 (3.3-5.1) mmol/L Chloride 109 H (96-108) mmol/L Carbon Dioxide 25 (22-29) mmol/L Anion Gap 11 L (12-20) BUN 12 (9-16) mg/dL Creatinine 0.82 (0.5-1.4) mg/dL Estim Creat Clear Calc 83.5 Estimated GFR > 60 Random Glucose 94 (60-115) mg/dL Calcium 9.4 (8.4-10.2) mg/dL Magnesium 2.1 (1.6-2.6) mg/dL Total Bilirubin 0.3 (0.0-1.0) mg/dL AST 17 (5-31) U/L ALT 21 (0-31) U/L Alkaline Phosphatase 89 (39-117) U/L Troponin I High Sens < 3.5 (<3.5-17.0) ng/L Total Protein 7.0 (6.5-8.0) g/dL Albumin 4.4 (3.5-5.0) g/dL Lipase 50 (8-78) U/L Urine Color Urine Appearance Urine pH (5.0-9.0) Ur Specific Letart (1.005-1.025) Urine Protein (Neg-Trace) mg/dL Urine Glucose (UA) (Negative) mg/dL Urine Ketones (Negative) mg/dL Urine Blood (Negative) Urine Nitrite (Negative) Ur Leukocyte Esterase (Negative) Urine Test (NEGATIVE) 06/01/22 06/01/22 Range/Units 20:55 20:55 WBC (4.8-10.8) X10*3/uL RBC (4.20-5.50) X10*6/uL Hgb (12.0-16.0) g/dl Hct (37.0-47.0) % MCV (80.0-98.0) fL MCH (27.0-33.0) pg MCHC (31.0-35.0) g/dl RDW (11.0-16.0) % Plt Count (160-400) X10*3/uL MPV (9.4-12.3) fL Immature Gran % (Auto) (0.0-0.4) % Neut % (Auto) (45-73) % Lymph % (Auto) (20-40) % Howell % (Auto) (2-11) % Eos % (Auto) (0-4) % Baso % (Auto) (0-2) % Lymph # (Auto) (1.2-4.9) X10*3/uL Howell # (Auto) (0.1-1.2) X10*3/uL Eos # (Auto) (0.0-0.4) X10*3/uL Baso # (Auto) (0.0-0.2) X10*3/uL Abs Immat Gran (auto) (0.00-0.03) X10*3/uL Absolute Neuts (auto) (2.0-8.3) x10*3/uL Absolute Nucleated RBC (0.0-0.012) X10*3/uL Nucleated RBC % (auto) (0.0-0.2) /100WBC Sodium (135-145) mmol/L Potassium (3.3-5.1) mmol/L Chloride (96-108) mmol/L Carbon Dioxide (22-29) mmol/L Anion Gap (12-20) BUN (9-16) mg/dL Creatinine (0.5-1.4) mg/dL Estim Creat Clear Calc Estimated GFR Random Glucose (60-115) mg/dL Calcium (8.4-10.2) mg/dL Magnesium (1.6-2.6) mg/dL Total Bilirubin (0.0-1.0) mg/dL AST (5-31) U/L ALT (0-31) U/L Alkaline Phosphatase (39-117) U/L Troponin I High Sens (<3.5-17.0) ng/L Total Protein (6.5-8.0) g/dL Albumin (3.5-5.0) g/dL Lipase (8-78) U/L Urine Color Dark Yellow Urine Appearance Cloudy Urine pH 5.0 (5.0-9.0) Ur Specific Letart >= 1.030 H (1.005-1.025) Urine Protein Trace (Neg-Trace) mg/dL Urine Glucose (UA) Negative (Negative) mg/dL Urine Ketones Trace (Negative) mg/dL Urine Blood Negative (Negative) Urine Nitrite Negative (Negative) Ur Leukocyte Esterase Negative (Negative) Urine Test NEGATIVE (NEGATIVE) <CARLEEN Ndiaye - Last Filed: 06/01/22 14:44> Lab Results 06/01/22 06/01/22 06/01/22 Range/Units 15:12 15:12 15:12 WBC 11.2 H (4.8-10.8) X10*3/uL RBC 4.41 (4.20-5.50) X10*6/uL Hgb 13.4 (12.0-16.0) g/dl Hct 41.1 (37.0-47.0) % MCV 93.2 (80.0-98.0) fL MCH 30.4 (27.0-33.0) pg MCHC 32.6 (31.0-35.0) g/dl RDW 12.8 (11.0-16.0) % Plt Count 345 (160-400) X10*3/uL MPV 10.7 (9.4-12.3) fL Immature Gran % (Auto) 0.4 (0.0-0.4) % Neut % (Auto) 66.2 (45-73) % Lymph % (Auto) 24.5 (20-40) % Howell % (Auto) 6.2 (2-11) % Eos % (Auto) 2.3 (0-4) % Baso % (Auto) 0.4 (0-2) % Lymph # (Auto) 2.8 (1.2-4.9) X10*3/uL Howell # (Auto) 0.7 (0.1-1.2) X10*3/uL Eos # (Auto) 0.3 (0.0-0.4) X10*3/uL Baso # (Auto) 0.0 (0.0-0.2) X10*3/uL Abs Immat Gran (auto) 0.04 H (0.00-0.03) X10*3/uL Absolute Neuts (auto) 7.4 (2.0-8.3) x10*3/uL Absolute Nucleated RBC 0.000 (0.0-0.012) X10*3/uL Nucleated RBC % (auto) 0.0 (0.0-0.2) /100WBC Sodium 141 (135-145) mmol/L Potassium 4.2 (3.3-5.1) mmol/L Chloride 109 H (96-108) mmol/L Carbon Dioxide 25 (22-29) mmol/L Anion Gap 11 L (12-20) BUN 12 (9-16) mg/dL Creatinine 0.82 (0.5-1.4) mg/dL Estim Creat Clear Calc 83.5 Estimated GFR > 60 Random Glucose 94 (60-115) mg/dL Calcium 9.4 (8.4-10.2) mg/dL Magnesium 2.1 (1.6-2.6) mg/dL Total Bilirubin 0.3 (0.0-1.0) mg/dL AST 17 (5-31) U/L ALT 21 (0-31) U/L Alkaline Phosphatase 89 (39-117) U/L Troponin I High Sens < 3.5 (<3.5-17.0) ng/L Total Protein 7.0 (6.5-8.0) g/dL Albumin 4.4 (3.5-5.0) g/dL Lipase 50 (8-78) U/L Urine Color Urine Appearance Urine pH (5.0-9.0) Ur Specific Letart (1.005-1.025) Urine Protein (Neg-Trace) mg/dL Urine Glucose (UA) (Negative) mg/dL Urine Ketones (Negative) mg/dL Urine Blood (Negative) Urine Nitrite (Negative) Ur Leukocyte Esterase (Negative) Urine Test (NEGATIVE) 06/01/22 06/01/22 Range/Units 20:55 20:55 WBC (4.8-10.8) X10*3/uL RBC (4.20-5.50) X10*6/uL Hgb (12.0-16.0) g/dl Hct (37.0-47.0) % MCV (80.0-98.0) fL MCH (27.0-33.0) pg MCHC (31.0-35.0) g/dl RDW (11.0-16.0) % Plt Count (160-400) X10*3/uL MPV (9.4-12.3) fL Immature Gran % (Auto) (0.0-0.4) % Neut % (Auto) (45-73) % Lymph % (Auto) (20-40) % Howell % (Auto) (2-11) % Eos % (Auto) (0-4) % Baso % (Auto) (0-2) % Lymph # (Auto) (1.2-4.9) X10*3/uL Howell # (Auto) (0.1-1.2) X10*3/uL Eos # (Auto) (0.0-0.4) X10*3/uL Baso # (Auto) (0.0-0.2) X10*3/uL Abs Immat Gran (auto) (0.00-0.03) X10*3/uL Absolute Neuts (auto) (2.0-8.3) x10*3/uL Absolute Nucleated RBC (0.0-0.012) X10*3/uL Nucleated RBC % (auto) (0.0-0.2) /100WBC Sodium (135-145) mmol/L Potassium (3.3-5.1) mmol/L Chloride (96-108) mmol/L Carbon Dioxide (22-29) mmol/L Anion Gap (12-20) BUN (9-16) mg/dL Creatinine (0.5-1.4) mg/dL Estim Creat Clear Calc Estimated GFR Random Glucose (60-115) mg/dL Calcium (8.4-10.2) mg/dL Magnesium (1.6-2.6) mg/dL Total Bilirubin (0.0-1.0) mg/dL AST (5-31) U/L ALT (0-31) U/L Alkaline Phosphatase (39-117) U/L Troponin I High Sens (<3.5-17.0) ng/L Total Protein (6.5-8.0) g/dL Albumin (3.5-5.0) g/dL Lipase (8-78) U/L Urine Color Dark Yellow Urine Appearance Cloudy Urine pH 5.0 (5.0-9.0) Ur Specific Letart >= 1.030 H (1.005-1.025) Urine Protein Trace (Neg-Trace) mg/dL Urine Glucose (UA) Negative (Negative) mg/dL Urine Ketones Trace (Negative) mg/dL Urine Blood Negative (Negative) Urine Nitrite Negative (Negative) Ur Leukocyte Esterase Negative (Negative) Urine Test NEGATIVE (NEGATIVE) <Luca Rodrigues MD - Last Filed: 06/01/22 22:51> Medications Administered Discontinued Medications Generic Name Dose Route Start Last Admin Trade Name Freq PRN Reason Stop Dose Admin Al Hydroxide/Mg Hydroxide 30 ml 06/01/22 18:35 06/01/22 18:53 Magnesium Hydrox/Alum Hydrox 30 Ml Oral.Susp PO 06/01/22 18:36 30 ml ONCE ONE Administration Dicyclomine HCl 20 mg 06/01/22 19:43 06/01/22 20:50 Dicyclomine Hcl 10 Mg Capsule PO 06/01/22 19:44 20 mg ONCE ONE Administration Lidocaine HCl 15 ml 06/01/22 18:35 06/01/22 18:53 Lidocaine Hcl Viscous 2 % 15 Ml Solution MUCOUS MEM 06/01/22 18:36 15 ml ONCE ONE Administration Lorazepam 1 mg 06/01/22 21:18 06/01/22 21:26 Lorazepam 1 Mg Tablet PO 06/01/22 21:19 1 mg ONCE ONE Administration Omeprazole 40 mg 06/01/22 18:35 06/01/22 18:52 Omeprazole 40 Mg Capsule.Dr PO 06/01/22 18:36 40 mg ONCE ONE Administration Ondansetron HCl 4 mg 06/01/22 18:35 06/01/22 18:52 Ondansetron Odt 4 Mg Tab.Rapdis TRANSLINGU 06/01/22 18:36 4 mg ONCE ONE Administration <CARLEEN Ndiaye - Last Filed: 06/01/22 14:44> Medications Administered Discontinued Medications Generic Name Dose Route Start Last Admin Trade Name Freq PRN Reason Stop Dose Admin Al Hydroxide/Mg Hydroxide 30 ml 06/01/22 18:35 06/01/22 18:53 Magnesium Hydrox/Alum Hydrox 30 Ml Oral.Susp PO 06/01/22 18:36 30 ml ONCE ONE Administration Dicyclomine HCl 20 mg 06/01/22 19:43 06/01/22 20:50 Dicyclomine Hcl 10 Mg Capsule PO 06/01/22 19:44 20 mg ONCE ONE Administration Lidocaine HCl 15 ml 06/01/22 18:35 06/01/22 18:53 Lidocaine Hcl Viscous 2 % 15 Ml Solution MUCOUS [facility] 06/01/22 18:36 15 ml ONCE ONE Administration Lorazepam 1 mg 06/01/22 21:18 06/01/22 21:26 Lorazepam 1 Mg Tablet PO 06/01/22 21:19 1 mg ONCE ONE Administration Omeprazole 40 mg 06/01/22 18:35 06/01/22 18:52 Omeprazole 40 Mg Capsule.Dr PO 06/01/22 18:36 40 mg ONCE ONE Administration Ondansetron HCl 4 mg 06/01/22 18:35 06/01/22 18:52 Ondansetron Odt 4 Mg Tab.Rapdis TRANSLINGU 06/01/22 18:36 4 mg ONCE ONE Administration <Luca Rodrigues MD - Last Filed: 06/01/22 22:51> Discharge Plan Discharge Clinical Impression: Gastritis, Irritable bowel syndrome, Anxiety <CARLEEN Ndiaye - Last Filed: 06/01/22 14:44> Patient Disposition: Home, Self-Care <CARLEEN Ndiaye - Last Filed: 06/01/22 14:44> Instructions: Gastritis (ED), Irritable Bowel Syndrome (ED), Anxiety (ED) <CARLEEN Ndiaye - Last Filed: 06/01/22 14:44> Additional Instructions: Drink plenty of fluid Take medication as prescribed Follow-up with PCP/gastroenterology for further evaluation/ management <CARLEEN Ndiaye Last Filed: 06/01/22 14:44> Prescriptions: New dicyclomine 20 mg tablet 20 mg PO QID PRN (Reason: abdominal pain) Qty: 20 0RF omeprazole 40 mg capsule,delayed release(DR/EC) 40 mg PO DAILY Qty: 30 0RF lorazepam [Ativan] 1 mg tablet 1 mg PO BEDTIME PRN (Reason: anxiety) Qty: 14 0RF sucralfate 1 gram tablet 1 g PO BID Qty: 60 0RF No Action cyclobenzaprine 10 mg tablet 10 mg PO TID PRN (Reason: muscle spasm) Qty: 14 0RF naproxen 500 mg tablet 500 mg PO BID PRN (Reason: pain) Qty: 30 0RF ondansetron HCl [Zofran] 4 mg tablet 4 mg PO Q8H PRN (Reason: nausea and vomiting) Qty: 14 0RF oxcarbazepine 150 mg tablet 150 mg PO BID omeprazole 40 mg capsule,delayed release(DR/EC) 40 mg PO DAILY lorazepam 0.5 mg tablet 0.5 mg PO BID PRN (Reason: Anxiety) montelukast 10 mg tablet 10 mg PO BEDTIME fluoxetine 20 mg capsule 20 mg PO DAILY naproxen 500 mg tablet 500 mg PO BID PRN (Reason: pain) Qty: 20 0RF prednisone 20 mg tablet 40 mg PO DAILY Qty: 10 0RF albuterol sulfate 2.5 mg /3 mL (0.083 %) solution for nebulization 2.5 mg inhalation Q4-6H PRN (Reason: shortness of breath or wheezing) Qty: 90 0RF azithromycin [Zithromax Z-Olman] 250 mg tablet See Rx Instructions .ROUTE .COMPLEX Qty: 6 0RF Rx Instructions: take 500 mg today (day 1), then 250 mg for 4 days (days 2-5) prednisone 20 mg tablet 60 mg PO DAILY 5 Days Qty: 15 0RF hyoscyamine sulfate 0.125 mg tablet 0.125 mg PO QID PRN (Reason: dyspepsia) Qty: 10 0RF benzonatate 200 mg capsule 200 mg PO TID PRN (Reason: cough) Qty: 30 0RF doxycycline hyclate 100 mg tablet 100 mg PO BID Qty: 20 0RF prednisone 20 mg tablet 60 mg PO DAILY 4 Days Qty: 12 0RF benzonatate 100 mg capsule 100 mg PO TID PRN (Reason: cough) Qty: 14 0RF prednisone 20 mg tablet 60 mg PO DAILY 5 Days Qty: 15 0RF budesonide-formoterol [Symbicort] 80-4.5 mcg/actuation HFA aerosol inhaler 2 puff inhalation BID Qty: 10.2 0RF fluconazole [Diflucan] 50 mg tablet 50 mg PO DAILY Qty: 1 0RF <CARLEEN Ndiaye - Last Filed: 06/01/22 14:44> Referrals: Kathie Caal MD [Physician] - 2 weeks <CARLEEN Ndiaye - Last Filed: 06/01/22 14:44> Interventions: ED Discharge Assessment Last Done: 06/01/22 21:47 <CARLEEN Ndiaye - Last Filed: 06/01/22 14:44> Discharge Date/Time: 06/01/22 21:47 <CARLEEN Ndiaye - Last Filed: 06/01/22 14:44>
--- NOTE | 2022-06-01 14:44 | ECG_ITS ---
Test Reason : CHEST PAIN Blood Pressure : / mmHG Vent. Rate : 088 BPM Atrial Rate : 088 BPM P-R Int : 132 ms QRS Dur : 064 ms QT Int : 352 ms P-R-T Axes : 035 -12 025 degrees QTc Int : 425 ms Normal sinus rhythm Normal ECG When compared with ECG of 07-MAR-2022 21:07, No significant change was found Referred By: Mary Maharaj Electronically Signed By:BHAKTI MCQUEEN MD
--- OUTSIDE RECORDS SUMMARY | 2022-06-01 15:01 | XMS_ITS ---
:1985 Author Care Team Providers Name Role Phone [facility] Primary Care Pro vider [phone] NAVNEET DOTY NP Primary Care Provider [phone] ANGELIC MORFIN Primary Care Provider [phone] Allergies Code Code System Name Reaction Severity Status Onset 4493 RxNorm Fluoxetine ? ? Active ? 265588 RxNorm Peanut Hives Mild to Moderate Active [...] 09/26/2021 Vaginosis Normal Bacterial ? (neg) Final [facility] Vaginitis plus Vaginosis Reference Laboratori es: [address], [place] ? ? ABNORMAL Laura ? (neg) Final [facility] te Species Group Ref erence Laboratori es: [address], [place] ? ? Normal Laura ? (neg) Final [facility] Glabrata Referenc e Laboratori es: [address], [place] ? ? Normal Trichomonas ? (neg) Final [facility] leonard Vaginalis Referen ce Laboratori es: [address], [place] ? ? ? C.trachomati ? (neg) Final [facility] s Amp Probe Refer ence Laboratori es: [address], [place] ? ? ? N.gonorrhoea ? (neg) Final [facility] e Amp Probe Refer ence Laboratori es: [...] [facility] [address], [place]th [facility], [address], [place] [address], [id number] 09/26/2021 Urinalysis, ? Appearance clear ? ? [...] 1.030 ? ? Spr - H ome: [facility] (Ref: [address], 1.003 - West [...] [facility] [address], [place]th [facility], [address], [place] [address], [id number] 05/24/2021 Covid-19 ? Covid-19 PCR ? (neg) Kaykay Santos (Novel Result Reference Coronavirus) Labo ratories: PCR [address], [place] ? ? ? Covid-19 PCR nasal ? Final [facility] Specimen Referenc e Source Laboratori es: [address] [...] ? ? Covid-19 PCR nasal ? Final [facility] Specimen Referenc e Source Laboratori es: [address], [place] 09/20/2020 Covid-19 ? Covid-19 PCR ? (neg) Kaykay Santos (Novel Result Reference Coronavirus) Labo ratories: PCR [address], [place] ? ? ? Covid-19 PCR nasal ? Final [facility] Specimen Referenc e Source Laboratori es: [address], [place] 09/20/2020 Streptococcus ? Specimen throat ? Fin al [facility] Group a, Description swab Ref erence Culture, Laborato jose: Throat [address], [place] ? ? ? Special none ? Final [facility] Requests Referenc e Laboratori es: [address], [place] ? ? ? Culture no group A ? Final [facility] leonard beta Reference hemolytic Laborat ories: streptococ [address], [place] ? ? ? Report final ? Final [facility] Status 09/22/2020 Refere nce Laboratori es: [address], [place] 09/05/2020 Covid-19 ? Covid-19 PCR ? (neg) Kaykay mai [facility] (Novel Result Reference Coronavirus) Labo ratories: PCR [address], [place] ? ? ? Covid-19 PCR nasal ? Final [facility] Specimen Referenc e Source Laboratori es: [address], [place] ? Rapid Flu ? Flu a negative ? ? Spr - Home: (A+B) [address], [place] ? ? ? Flu B negative ? ? Spr - Ho me: [address], [place] ? ? ? Control Visualized ? ? 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 05/24/2021 Dry Cough; Viral Syndrome Nabeel Sanders P: [address] [place], [place] , Ph. 04/28/2021 Exposure to SARS-CoV-2; Cough; Acute Chr istian CARLEEN Robles: Bronchitis; Exposure to Communicable [address] [place], Disease [place] , Ph. 4 12/10/2020 Persistent Cough CARLEEN Bowen : [address] [facility] [place] [place] , [place]. Social History Tobacco Smoking Status Never Smoker Vaccine List None recorded. Plan of Care Patient Instructions [facility] came to your home for e valuation [...] your condition between 8am-10pm, manan grace call [facility] at [phone] to help navigate your care. Thank you for your visit with [facility] today. We cannot always find the exact [...] in your condition between 8am-10pm, please call [facility] at [phone] to help navigate your care. Reminders Provider [...]
[2022-06-01 15:16] LABS: MANUAL DIFF FLAG NO
[2022-06-01 15:18] LABS: Basophils Percent Auto 0.4 % (0-2); Eosinophils Absolute Auto 0.3 X10*3/uL (0.0-0.4); Eosinophils Percent Auto 2.3 % (0-4); Hematocrit 41.1 % (37.0-47.0); Hemoglobin 13.4 g/dl (12.0-16.0); Imm Gran Abs Auto 0.04 X10*3/uL (0.00-0.03); Imm Gran Pct Auto 0.4 % (0.0-0.4); Lymphocytes Absolute Auto 2.8 X10*3/uL (1.2-4.9); Lymphocytes Percent Auto 24.5 % (20-40); Mean Corpuscular HGB Conc 32.6 g/dl (31.0-35.0); Mean Corpuscular Hemoglobin 30.4 pg (27.0-33.0); Mean Corpuscular Volume 93.2 fL (80.0-98.0); Mean Platelet Volume 10.7 fL (9.4-12.3); Monocytes Absolute Auto 0.7 X10*3/uL (0.1-1.2); Monocytes Percent Auto 6.2 % (2-11); Neutrophils Absolute Auto 7.4 x10*3/uL (2.0-8.3); Neutrophils Percent Auto 66.2 % (45-73); Platelet Count 345 X10*3/uL (160-400); Red Blood Count 4.41 X10*6/uL (4.20-5.50); Red Cell Distribution Width 12.8 % (11.0-16.0); White Blood Count 11.2 X10*3/uL (4.8-10.8)
[2022-06-01 15:38] LABS: Alanine Aminotransferase 21 U/L (0-31); Albumin Level 4.4 g/dL (3.5-5.0); Alkaline Phosphatase 89 U/L (39-117); Anion Gap 11 (12-20); Aspartate Amino Transferase 17 U/L (5-31); Bilirubin Total 0.3 mg/dL (0.0-1.0); Blood Urea Nitrogen 12 mg/dL (9-16); Calcium 9.4 mg/dL (8.4-10.2); Carbon Dioxide 25 mmol/L (22-29); Chloride 109 mmol/L (96-108); Creatinine Clr Calc Pharmacy 83.5; Estimated Glomerular Filt Rate > 60; Glucose Random 94 mg/dL (60-115); Lipase 50 U/L (8-78); Magnesium 2.1 mg/dL (1.6-2.6); Potassium 4.2 mmol/L (3.3-5.1); Sodium 141 mmol/L (135-145)
[2022-06-01 15:41] LABS: Troponin-I High Sensitivity < 3.5 ng/L (<3.5-17.0)
[2022-06-01 18:44] VITALS: BP 119/76; PULSE 84; RESP 16; O2SAT 99
[2022-06-01] MEDS: Ondansetron ODT 4 MG TAB.RAPDIS TRANSLINGU (18:52)
[2022-06-01] MEDS: Omeprazole 40 MG CAPSULE.DR PO (18:52)
[2022-06-01] MEDS: Lidocaine HCl Viscous 2 % 15 ML SOLUTION MUCOUS MEM (18:53)
[2022-06-01] MEDS: Magnesium Hydrox/Alum Hydrox 30 ML ORAL.SUSP PO (18:53)
--- NOTE | 2022-06-01 18:55 | PC.NURSE ---
pt. alert and oriented. complains of LLQ abdominal pain 03/15. has not been able to drink or eat since Tuesday. had diarrhea since yesterday. gave her GI meds and ca sonia.
[2022-06-01 20:34] VITALS: BP 113/74; PULSE 82; RESP 16; TEMP 36.8; O2SAT 98
[2022-06-01] MEDS: Dicyclomine HCl 10 MG CAPSULE 20 MG PO (20:50)
[2022-06-01 21:02] LABS: Appearance Urine Cloudy; Color Urine Dark Yellow; Glucose Urine UA Negative (Negative); Leukocyte Esterase Urine Negative (Negative); Nitrite Urine Negative (Negative); Specific Gravity - Urine >= 1.030 (1.005-1.025); Urine Blood Negative (Negative); Urine Ketones Trace mg/dL (Negative); Urine Protein Trace mg/dL (Neg-Trace)
[2022-06-01 21:04] LABS: UPreg QC Valid YES; Urine Pregnancy NEGATIVE (NEGATIVE)
[2022-06-01] MEDS: LORazepam 1 MG TABLET PO (21:26)
== END 2022-06-01 21:47 | disposition home or self-care (01) ==
PROVIDERS: Physician Assistant; Emergency Provider Internal Medicine; PCP Nurse Practitioner Family
DX: K29.70 Gastritis, unspecified, without bleeding (principal); K58.9 Irritable bowel syndrome, unspecified; F41.1 Generalized anxiety disorder; R07.89 Other chest pain; F43.0 Acute stress reaction; Z79.899 Other long term (current) drug therapy
CPT/HCPCS: 36415; 80053; 81003; 81025; 83690; 83735; 84484; 85025; 93005; 99283; 99284

== ENCOUNTER 2022-07-05 00:17 | Emergency (ER) | payer MEDICARE, MEDICAID, SELFPAY ==
--- NOTE | ~2022-07-05 | XR_ITS ---
EXAMINATION: XR CHEST CLINICAL INFORMATION: Chest pain COMPARISON: 03/07/2022 TECHNIQUE: Frontal view of the chest was obtained. FINDINGS: The lungs are clear with no focal consolidation. No evidence of pneumothorax, pulmonary edema, or pleural effusions. The cardiomediastinal silhouette is unremarkable. No acute osseous findings. XR/XR chest 1V IMPRESSION: No acute cardiopulmonary findings.
--- NOTE | 2022-07-05 00:21 | ECG_ITS ---
Test Reason : CHEST PAIN Blood Pressure : / mmHG Vent. Rate : 103 BPM Atrial Rate : 103 BPM P-R Int : 148 ms QRS Dur : 064 ms QT Int : 342 ms P-R-T Axes : 055 012 038 degrees QTc Int : 448 ms Sinus tachycardia Otherwise normal ECG When compared with ECG of 01-JUN-2022 14:59, No significant change was found Referred By: Generic ED Physician Electronically Signed By:Jose Carlos Mason
--- NOTE | 2022-07-05 00:26 | ED.CHESTPAIN ---
HPI - Chest Pain General Chief Complaint: Chest Pain Stated Complaint: Chest Pain Time Seen by Provider: 07/05/22 00:19 Source: patient Mode of arrival: EMS Limitations: no limitations History of Present Illness HPI narrative: Patient comes in the emergency room from home complaining of chest pain. According to EMS, they did an EKG, nondiagnostic. Patient has no cardiac history. Patient complaining of severe anxiety as well. Patient requesting Ativan. Patient denies shortness of breath, no recent viral illness. Related Data Home Medications Medication Instructions Recorded Confirmed fluoxetine 20 mg capsule 20 mg PO DAILY 08/18/20 12/21/20 lorazepam 0.5 mg tablet 0.5 mg PO BID PRN Anxiety 08/18/20 12/21/20 montelukast 10 mg tablet 10 mg PO BEDTIME 08/18/20 12/21/20 omeprazole 40 mg capsule,delayed 40 mg PO DAILY 08/18/20 12/21/20 release oxcarbazepine 150 mg tablet 150 mg PO BID 08/18/20 12/21/20 Previous Rx's Medication Instructions Recorded naproxen 500 mg tablet 500 mg PO BID PRN pain #20 tabs 09/28/20 albuterol sulfate 2.5 mg/3 mL 2.5 mg (3 mL) inhalation Q4-6H PRN 12/07/20 (0.083 %) solution for nebulization shortness of breath or wheezing #90 mL prednisone 20 mg tablet 40 mg PO DAILY #10 tabs 12/07/20 budesonide-formoterol HFA 80 2 puff inhalation BID #10.2 grams 12/17/20 mcg-4.5 mcg/actuation aerosol inhaler (Symbicort) fluconazole 50 mg tablet (Diflucan) 50 mg PO DAILY #1 tab 12/17/20 cyclobenzaprine 10 mg tablet 10 mg PO TID PRN muscle spasm #14 02/13/21 tabs naproxen 500 mg tablet 500 mg PO BID PRN pain #30 tabs 02/13/21 ondansetron HCl 4 mg tablet 4 mg PO Q8H PRN nausea and 02/13/21 (Zofran) vomiting #14 tabs azithromycin 250 mg tablet See Rx Instructions PO .COMPLEX #6 04/12/21 (Zithromax Z-Olman) tabs prednisone 20 mg tablet 60 mg PO DAILY 5 days #15 tabs 04/12/21 hyoscyamine sulfate 0.125 mg tablet 0.125 mg PO QID PRN dyspepsia #10 09/11/21 tabs benzonatate 100 mg capsule 100 mg PO TID PRN cough #14 caps 12/04/21 prednisone 20 mg tablet 60 mg PO DAILY 4 days #12 tabs 12/04/21 prednisone 20 mg tablet 60 mg PO DAILY 5 days #15 tabs 01/16/22 benzonatate 200 mg capsule 200 mg PO TID PRN cough #30 caps 03/07/22 doxycycline hyclate 100 mg tablet 100 mg PO BID #20 tabs 03/07/22 dicyclomine 20 mg tablet 20 mg PO QID PRN abdominal pain 06/01/22 #20 tabs lorazepam 1 mg tablet (Ativan) 1 mg PO BEDTIME PRN anxiety #14 06/01/22 tabs omeprazole 40 mg capsule,delayed 40 mg PO DAILY #30 caps 06/01/22 release sucralfate 1 gram tablet 1 g PO BID #60 tabs 06/01/22 Allergies Allergy/AdvReac Type Severity Reaction Status Date / Time amoxicillin [AMOXICILLIN] Allergy Unknown RASH Verified 06/01/22 14:47 cefuroxime [From CEFTIN] Allergy Unknown HIVES, Verified 06/01/22 14:47 ANAPHYLAXIS divalproex sodium Allergy Unknown TALKS Verified 06/01/22 14:47 [From DEPAKOTE] WEIRD Penicillins [PENICILLINS] Allergy Unknown HIVES Verified 06/01/22 14:47 Review of Systems Review of Systems: Constitutional : No Weight loss, No Fever, No Chills, No Night Sweats, No Fatigue, No Malaise ENT/Mouth : No Hearing loss, No Ear Pain, No Nasal Congestion, No Sinus Pain, No Hoarseness, No sore throat, No Rhinorrhea, No Swallowing Difficulty Eyes: No Eye Pain, No Swelling, No Redness, No Foreign Body, No Discharge, No Vision Changes Cardiovascular : Complaining of chest pain, sharp, nonradiating No SOB, No Dyspnea on Exertion, No Orthopnea, No Edema, No Palpitations Respiratory : No Cough, No Sputum, No Wheezing, No Smoke Exposure, No Dyspnea Gastrointestinal : No Nausea, No Vomiting, No Diarrhea, No Constipation, No abdominal Pain, No Hematochezia, No Melena Genitourinary : no irregular bleeding, No Dysuria, No Urinary Frequency, No Hematuria, No Urinary Incontinence, No Urgency, No Flank Pain, No Urinary Flow Changes, No Hesitancy Musculoskeletal : No joint pain, No Myalgias, No Joint Swelling Skin : No Skin Lesions, No rash Neuro : No Weakness, No Numbness, No Paresthesias, No Loss of Consciousness, No Dizziness, No Headache Psych : Complaining of severe anxiety No Depression, No SI/HI/AH/VH, No Social Issues, Heme/Lymph: No Bruising, No Bleeding,No Lymphadenopathy Endocrine : No Polyuria, No Polydipsia, No Temperature Intolerance [facility] Past Medical History Medical History Asthma Depression No known health problems Social History Social History Alcohol intake: never Patient Tobacco Use Status: Never used Tobacco Substance Use Type: Marijuana Advance Directives: No Physical Exam Vital Signs: Vital Signs: Last Vital Signs Temp 98.9 F 07/05/22 00:29 Pulse 98 07/05/22 00:29 Resp 16 07/05/22 00:29 BP 149/82 H 07/05/22 00:29 Pulse Ox 100 07/05/22 00:29 O2 Del Method 07/05/22 00:29 BMI result Body Mass Index 24.9 Const: Other: Appearance: Alert. Oriented X3. No acute distress. Eyes: Pupils equal, round and reactive to light. ENT: Pharynx normal. Neck: Normal inspection. Neck supple. No lymph nodes noted. No crepitus CVS: Normal heart rate and rhythm. Pulses normal. Normal S1 and S2, reproducible chest pain with exaggerated response to minimal pressure over the left side of the chest Respiratory: No respiratory distress. Breath sounds normal. No Wheezing. No rales Abdomen: Soft and nontender. No rigidity. No distention. Skin: Skin warm and dry. Normal skin color. Normal skin turgor. Extremities: No lower extremity edema. No Lacerations. No Rash Neuro: Oriented X 3. No motor deficit. No sensory deficit. Moving all extremities. No slurred speech. CN 2 through 12 grossly intact Psych: Cooperative, very anxious Course Course Course Narrative: -patient is very anxious at this time, patient requesting isolated, patient was given 2 mg p.o. of Ativan. -EKGs show sinus rhythm, no acute findings -patient's labs pending. Medications Administered Discontinued Medications Generic Name Dose Route Start Last Admin Trade Name Isac PRN Reason Stop Dose Admin Lorazepam 2 mg 07/05/22 00:23 07/05/22 00:39 Lorazepam 1 Mg Tablet PO 07/05/22 00:24 2 mg ONCE ONE Administration Medical Decision Making Medical Decision Making [facility] Narrative: -EKG within normal limits -x-ray negative, troponin negative, D-dimer negative. -chest pain is reproducible, likely musculoskeletal in addition to anxiety Differential Diagnosis Differential Diagnoses: The differential diagnosis associated with the presentation includes (Costochondritis, anxiety, ACS) Lab Data [facility] Lab Attestation statement: I reviewed the patient's lab results. 07/05/22 00:37 07/05/22 00:37 Labs: Lab Results 07/05/22 07/05/22 07/05/22 Range/Units 00:37 00:37 00:37 WBC 14.8 H (4.8-10.8) X10*3/uL RBC 4.16 L (4.20-5.50) X10*6/uL Hgb 12.5 (12.0-16.0) g/dl Hct 38.0 (37.0-47.0) % MCV 91.3 (80.0-98.0) fL MCH 30.0 (27.0-33.0) pg MCHC 32.9 (31.0-35.0) g/dl RDW 12.4 (11.0-16.0) % Plt Count 330 (160-400) X10*3/uL MPV 10.8 (9.4-12.3) fL Absolute Nucleated RBC 0.000 (0.0-0.012) X10*3/uL Nucleated RBC % (auto) 0.0 (0.0-0.2) /100WBC D-Dimer High Sensitivty NG/ML Sodium 139 (135-145) mmol/L Potassium 3.9 (3.3-5.1) mmol/L Chloride 105 (96-108) mmol/L Carbon Dioxide 26 (22-29) mmol/L Anion Gap 12 (12-20) BUN 10 (9-16) mg/dL Creatinine 0.82 (0.5-1.4) mg/dL Estim Creat Clear Calc 86.8 Estimated GFR > 60 Random Glucose 102 (60-115) mg/dL Calcium 9.3 (8.4-10.2) mg/dL Total Bilirubin 0.3 (0.0-1.0) mg/dL AST 16 (5-31) U/L ALT 17 (0-31) U/L Alkaline Phosphatase 96 (39-117) U/L Troponin I High Sens < 3.5 (<3.5-17.0) ng/L Total Protein 6.8 (6.5-8.0) g/dL Albumin 4.2 (3.5-5.0) g/dL Urine Color Urine Appearance Urine pH (5.0-9.0) Ur Specific [place] (1.005-1.025) Urine Protein (Neg-Trace) mg/dL Urine Glucose (UA) (Negative) mg/dL Urine Ketones (Negative) mg/dL Urine Blood (Negative) Urine Nitrite (Negative) Ur Leukocyte Esterase (Negative) Urine RBC (0-2) /HPF Urine WBC (0-5) /HPF Ur Squamous Epith Cells (0-2) /HPF Urine Bacteria (None Seen) Hyaline Casts (0-2) /LPF 07/05/22 07/05/22 Range/Units 00:38 00:57 WBC (4.8-10.8) X10*3/uL RBC (4.20-5.50) X10*6/uL Hgb (12.0-16.0) g/dl Hct (37.0-47.0) % MCV (80.0-98.0) fL MCH (27.0-33.0) pg MCHC (31.0-35.0) g/dl RDW (11.0-16.0) % Plt Count (160-400) X10*3/uL MPV (9.4-12.3) fL Absolute Nucleated RBC (0.0-0.012) X10*3/uL Nucleated RBC % (auto) (0.0-0.2) /100WBC D-Dimer High Sensitivty < 150 NG/ML Sodium (135-145) mmol/L Potassium (3.3-5.1) mmol/L Chloride (96-108) mmol/L Carbon Dioxide (22-29) mmol/L Anion Gap (12-20) BUN (9-16) mg/dL Creatinine (0.5-1.4) mg/dL Estim Creat Clear Calc Estimated GFR Random Glucose (60-115) mg/dL Calcium (8.4-10.2) mg/dL Total Bilirubin (0.0-1.0) mg/dL AST (5-31) U/L ALT (0-31) U/L Alkaline Phosphatase (39-117) U/L Troponin I High Sens (<3.5-17.0) ng/L Total Protein (6.5-8.0) g/dL Albumin (3.5-5.0) g/dL Urine Color Yellow Urine Appearance Clear Urine pH 6.5 (5.0-9.0) Ur Specific [place] <= 1.005 (1.005-1.025) Urine Protein Negative (Neg-Trace) mg/dL Urine Glucose (UA) Negative (Negative) mg/dL Urine Ketones Negative (Negative) mg/dL Urine Blood Negative (Negative) Urine Nitrite Negative (Negative) Ur Leukocyte Esterase Trace H (Negative) Urine RBC 0-2 (0-2) /HPF Urine WBC 0-5 (0-5) /HPF Ur Squamous Epith Cells 0-2 (0-2) /HPF Urine Bacteria None Seen (None Seen) Hyaline Casts 0-2 (0-2) /LPF Independent Interpretation I performed an independent interpretation of an: Plain X-Ray (My interpretation of x-ray: No rib fracture, no pneumothorax or infiltrates) Radiology Impression Discussion of test interpretation with radiology: I have reviewed the radiologist's reading. Radiologist Impression: FINDINGS: The lungs are clear with no focal consolidation. No evidence of pneumothorax, pulmonary edema, or pleural effusions. The cardiomediastinal silhouette is unremarkable. No acute osseous findings. XR/XR chest 1V IMPRESSION: No acute cardiopulmonary findings Discharge Plan Discharge Clinical Impression: Atypical chest pain Patient Disposition: Home, Self-Care Instructions: Chest Pain (ED) Additional Instructions: Please follow-up with your primary care physician tomorrow. If you have any worsening or new symptoms, please return to the emergency room or call 911 Prescriptions: No Action cyclobenzaprine 10 mg tablet 10 mg PO TID PRN (Reason: muscle spasm) Qty: 14 0RF naproxen 500 mg tablet 500 mg PO BID PRN (Reason: pain) Qty: 30 0RF ondansetron HCl [Zofran] 4 mg tablet 4 mg PO Q8H PRN (Reason: nausea and vomiting) Qty: 14 0RF oxcarbazepine 150 mg tablet 150 mg PO BID omeprazole 40 mg capsule,delayed release(DR/EC) 40 mg PO DAILY lorazepam 0.5 mg tablet 0.5 mg PO BID PRN (Reason: Anxiety) montelukast 10 mg tablet 10 mg PO BEDTIME fluoxetine 20 mg capsule 20 mg PO DAILY naproxen 500 mg tablet 500 mg PO BID PRN (Reason: pain) Qty: 20 0RF prednisone 20 mg tablet 40 mg PO DAILY Qty: 10 0RF albuterol sulfate 2.5 mg /3 mL (0.083 %) solution for nebulization 2.5 mg inhalation Q4-6H PRN (Reason: shortness of breath or wheezing) Qty: 90 0RF azithromycin [Zithromax Z-Olman] 250 mg tablet See Rx Instructions .ROUTE .COMPLEX Qty: 6 0RF Rx Instructions: take 500 mg today (day 1), then 250 mg for 4 days (days 2-5) prednisone 20 mg tablet 60 mg PO DAILY 5 Days Qty: 15 0RF hyoscyamine sulfate 0.125 mg tablet 0.125 mg PO QID PRN (Reason: dyspepsia) Qty: 10 0RF benzonatate 200 mg capsule 200 mg PO TID PRN (Reason: cough) Qty: 30 0RF doxycycline hyclate 100 mg tablet 100 mg PO BID Qty: 20 0RF dicyclomine 20 mg tablet 20 mg PO QID PRN (Reason: abdominal pain) Qty: 20 0RF omeprazole 40 mg capsule,delayed release(DR/EC) 40 mg PO DAILY Qty: 30 0RF lorazepam [Ativan] 1 mg tablet 1 mg PO BEDTIME PRN (Reason: anxiety) Qty: 14 0RF sucralfate 1 gram tablet 1 g PO BID Qty: 60 0RF prednisone 20 mg tablet 60 mg PO DAILY 4 Days Qty: 12 0RF benzonatate 100 mg capsule 100 mg PO TID PRN (Reason: cough) Qty: 14 0RF prednisone 20 mg tablet 60 mg PO DAILY 5 Days Qty: 15 0RF budesonide-formoterol [Symbicort] 80-4.5 mcg/actuation HFA aerosol inhaler 2 puff inhalation BID Qty: 10.2 0RF fluconazole [Diflucan] 50 mg tablet 50 mg PO DAILY Qty: 1 0RF
[2022-07-05 00:29] VITALS: BP 124/77; BP 149/82; PULSE 100; PULSE 98; RESP 16; TEMP 37.2; O2SAT 100; O2SAT 98; BMI 24.9
[2022-07-05] MEDS: LORazepam 1 MG TABLET 2 MG PO (00:39)
[2022-07-05 00:47] LABS: Hemoglobin 12.5 g/dl (12.0-16.0); Mean Corpuscular HGB Conc 32.9 g/dl (31.0-35.0); Mean Corpuscular Volume 91.3 fL (80.0-98.0); Mean Platelet Volume 10.8 fL (9.4-12.3); Platelet Count 330 X10*3/uL (160-400); Red Blood Count 4.16 X10*6/uL (4.20-5.50); Red Cell Distribution Width 12.4 % (11.0-16.0); White Blood Count 14.8 X10*3/uL (4.8-10.8)
[2022-07-05 00:56] LABS: D Dimer High Sensitivity < 150 NG/ML
[2022-07-05 01:10] LABS: Alanine Aminotransferase 17 U/L (0-31); Albumin Level 4.2 g/dL (3.5-5.0); Alkaline Phosphatase 96 U/L (39-117); Anion Gap 12 (12-20); Aspartate Amino Transferase 16 U/L (5-31); Bilirubin Total 0.3 mg/dL (0.0-1.0); Blood Urea Nitrogen 10 mg/dL (9-16); Calcium 9.3 mg/dL (8.4-10.2); Carbon Dioxide 26 mmol/L (22-29); Chloride 105 mmol/L (96-108); Creatinine Clr Calc Pharmacy 86.8; Estimated Glomerular Filt Rate > 60; Glucose Random 102 mg/dL (60-115); Potassium 3.9 mmol/L (3.3-5.1); Sodium 139 mmol/L (135-145); Total Protein 6.8 g/dL (6.5-8.0)
[2022-07-05 01:11] LABS: Troponin-I High Sensitivity < 3.5 ng/L (<3.5-17.0)
[2022-07-05 01:14] LABS: Appearance Urine Clear; Color Urine Yellow; Glucose Urine UA Negative (Negative); Leukocyte Esterase Urine Trace (Negative); Nitrite Urine Negative (Negative); PH 6.5 (5.0-9.0); Specific Gravity - Urine <= 1.005 (1.005-1.025); UMIC TRIGGER UACC YES; Urine Blood Negative (Negative); Urine Ketones Negative (Negative); Urine Protein Negative (Neg-Trace)
[2022-07-05 01:19] LABS: Bacteria Urine None Seen (None Seen); Hyaline Casts Urine 0-2 /LPF (0-2); RBC Urine 0-2 /HPF (0-2); Squamous Epithelial Cell Urine 0-2 /HPF (0-2); WBC Urine 0-5 /HPF (0-5)
== END 2022-07-05 02:01 | disposition home or self-care (01) ==
PROVIDERS: Emergency Provider Emergency Medicine
DX: R07.89 Other chest pain (principal); F41.1 Generalized anxiety disorder; F43.0 Acute stress reaction; Z79.899 Other long term (current) drug therapy
CPT/HCPCS: 36415; 71045; 80053; 81001; 84484; 85027; 85379; 93005; 99283; 99284

== ENCOUNTER 2022-07-30 14:03 | Emergency (ER) | payer MEDICARE, MEDICAID, SELFPAY ==
[2022-07-30 14:17] VITALS: BP 146/76; PULSE 85; RESP 16; TEMP 36.7; O2SAT 98; BMI 32.3
[2022-07-30 15:28] LABS: Appearance Urine Cloudy; Color Urine Yellow; Glucose Urine UA Negative (Negative); Leukocyte Esterase Urine Negative (Negative); Nitrite Urine Negative (Negative); Specific Gravity - Urine <= 1.005 (1.005-1.025); Urine Blood Negative (Negative); Urine Ketones Negative (Negative); Urine Protein Negative (Neg-Trace)
[2022-07-30 15:38] LABS: Amphetamine Screen Urine Not Detected (Not Detect); Barbiturates, Urine Not Detected (Not Detect); Benzodiazepines Screen Urine Not Detected (Not Detect); Cannabinoid Screen Urine Not Detected (Not Detect); Cocaine Screen Urine Not Detected (Not Detect); Fentanyl, urine Not Detected (Not Detect); Opiate Screen Urine Not Detected (Not Detect); Phencyclidine Screen Urine Not Detected (Not Detect)
--- NOTE | 2022-07-30 15:58 | ED.GENADULT ---
HPI - General Adult General Chief complaint: General Medical Stated complaint: Medication withdrawal, dizzy, confused per EMS Time Seen by Provider: 07/30/22 15:42 Source: patient, family and RN notes reviewed Mode of arrival: ambulatory Limitations: no limitations History of Present Illness HPI narrative: This is a 28-year-old female, with a past medical history of asthma, anxiety, depression, developmental delay who presents to the emergency department with complaints of ?feeling high? since today. Patient reports that 2 weeks ago her psychiatrist from [facility] started her on Effexor 37.5 mg q.d., which patient reports that she has been taking daily. She reports that over the last couple of days she has felt as though she was withdrawing from it. She stopped taking it x2 days. Mom reports yesterday, the 2nd day the patient did not have the medication she had behavioral outburst, was aggressive and felt this was due to medication withdrawal. She was given the 35 mg of the Effexor this morning. She has been unable to reach her 0 prescriber. Patient is complaining of feeling ?high? similar to how morphine makes her feel. She also reports nausea and decreased appetite with his medication. MD complaint: Adverse medication side effect Onset (ago): day(s) (2) Location: head and abdomen Radiation: non-radiation Severity: moderate Pain Consistency: intermittent Relieving factors: none Exacerbating factors: none Associated symptoms: loss of appetite, malaise and weakness Treatments prior to arrival: none Related Data Home Medications Medication Instructions Recorded Confirmed fluoxetine 20 mg capsule 20 mg PO DAILY 08/18/20 12/21/20 lorazepam 0.5 mg tablet 0.5 mg PO BID PRN Anxiety 08/18/20 12/21/20 montelukast 10 mg tablet 10 mg PO BEDTIME 08/18/20 12/21/20 omeprazole 40 mg capsule,delayed 40 mg PO DAILY 08/18/20 12/21/20 release oxcarbazepine 150 mg tablet 150 mg PO BID 08/18/20 12/21/20 Previous Rx's Medication Instructions Recorded naproxen 500 mg tablet 500 mg PO BID PRN pain #20 tabs 09/28/20 albuterol sulfate 2.5 mg/3 mL 2.5 mg (3 mL) inhalation Q4-6H PRN 12/07/20 (0.083 %) solution for nebulization shortness of breath or wheezing #90 mL prednisone 20 mg tablet 40 mg PO DAILY #10 tabs 12/07/20 budesonide-formoterol HFA 80 2 puff inhalation BID #10.2 grams 12/17/20 mcg-4.5 mcg/actuation aerosol inhaler (Symbicort) fluconazole 50 mg tablet (Diflucan) 50 mg PO DAILY #1 tab 12/17/20 cyclobenzaprine 10 mg tablet 10 mg PO TID PRN muscle spasm #14 02/13/21 tabs naproxen 500 mg tablet 500 mg PO BID PRN pain #30 tabs 02/13/21 ondansetron HCl 4 mg tablet 4 mg PO Q8H PRN nausea and 02/13/21 (Zofran) vomiting #14 tabs azithromycin 250 mg tablet See Rx Instructions PO .COMPLEX #6 04/12/21 (Zithromax Z-Olman) tabs prednisone 20 mg tablet 60 mg PO DAILY 5 days #15 tabs 04/12/21 hyoscyamine sulfate 0.125 mg tablet 0.125 mg PO QID PRN dyspepsia #10 09/11/21 tabs benzonatate 100 mg capsule 100 mg PO TID PRN cough #14 caps 12/04/21 prednisone 20 mg tablet 60 mg PO DAILY 4 days #12 tabs 12/04/21 prednisone 20 mg tablet 60 mg PO DAILY 5 days #15 tabs 01/16/22 benzonatate 200 mg capsule 200 mg PO TID PRN cough #30 caps 03/07/22 doxycycline hyclate 100 mg tablet 100 mg PO BID #20 tabs 03/07/22 dicyclomine 20 mg tablet 20 mg PO QID PRN abdominal pain 06/01/22 #20 tabs lorazepam 1 mg tablet (Ativan) 1 mg PO BEDTIME PRN anxiety #14 06/01/22 tabs omeprazole 40 mg capsule,delayed 40 mg PO DAILY #30 caps 06/01/22 release sucralfate 1 gram tablet 1 g PO BID #60 tabs 06/01/22 lorazepam 0.5 mg tablet (Ativan) 0.5 mg PO TID PRN anxiety #6 tabs 07/30/22 venlafaxine 25 mg tablet 25 mg PO DAILY #30 tabs 07/30/22 Allergies Allergy/AdvReac Type Severity Reaction Status Date / Time amoxicillin [AMOXICILLIN] Allergy Unknown RASH Verified 06/01/22 14:47 cefuroxime [From CEFTIN] Allergy Unknown HIVES, Verified 06/01/22 14:47 ANAPHYLAXIS divalproex sodium Allergy Unknown TALKS Verified 06/01/22 14:47 [From DEPAKOTE] WEIRD Penicillins [PENICILLINS] Allergy Unknown HIVES Verified 06/01/22 14:47 Review of Systems Review of Systems: Yes all other systems are reviewed and are negative [facility] Past Medical History Medical History Asthma Depression No known health problems Social History Social History Alcohol intake: never Patient Tobacco Use Status: Never used Tobacco Substance Use Type: Marijuana Advance Directives: No Advance Directives Information Provided: No Physical Exam ED Vital Signs: Vital Signs - 24 hr 07/30/22 14:17 Temperature 98.1 F Pulse Rate 85 Respiratory Rate 16 Blood Pressure 146/76 H Pulse Oximetry 98 Oxygen Delivery Method Room Air BMI result Body Mass Index 32.3 Appearance: Alert. Oriented X3. No acute distress. Eyes: Pupils equal, round and reactive to light. ENT: Pharynx normal. Neck: Normal inspection. Neck supple. CVS: Normal heart rate and rhythm. Pulses normal. Respiratory: No respiratory distress. Breath sounds normal. Abdomen: Soft and nontender. +BS x4 Skin: Skin warm and dry. Normal skin color. Normal skin turgor. No rashes. Extremities: No lower extremity edema. Neuro/psych: Oriented X 3. No motor deficit. No sensory deficit. Normal speech and cognition. Mood is ?okay. ? Seems appropriate. No SI or HI. Course Course Course Narrative: 36-year-old female presents to the ER for evaluation of adverse medication reaction and concern for possible withdrawal. She has only been on the Effexor for 2 weeks and should not have acute withdrawal symptoms however mom reports she is very sensitive to medications and their side effects. Patient seems appropriate. Your concerns about tapering of the medication and being ?safe? over the weekend. Will plan to prescribe the immediate release tablet of the Effexor that can be cut in half and taper down. We discussed a safe taper schedule. We will continue to try to follow-up with the [employer]OR prescriber. Mom and patient are comfortable discharge home and plan. Return precautions discussed. Medications Administered Discontinued Medications Generic Name Dose Route Start Last Admin Trade Name Isac PRN Reason Stop Dose Admin Lorazepam 0.5 mg 07/30/22 15:55 07/30/22 16:05 Lorazepam 0.5 Mg Tablet PO 07/30/22 15:56 0.5 mg ONCE ONE Administration Medical Decision Making Differential Diagnosis Differential Diagnoses: The differential diagnosis associated with the presentation includes Adverse side effects, medication withdrawal, acute anxiety, paranoia, panic attack, acute psychosis Lab Data MDM Lab Attestation statement: I reviewed the patient's lab results. Urinalysis negative for infection, U tox negative Labs: Lab Results 07/30/22 07/30/22 Range/Units 15:12 15:12 Urine Color Yellow Urine Appearance Cloudy Urine pH 7.0 (5.0-9.0) Ur Specific [place] <= 1.005 (1.005-1.025) Urine Protein Negative (Neg-Trace) mg/dL Urine Glucose (UA) Negative (Negative) mg/dL Urine Ketones Negative (Negative) mg/dL Urine Blood Negative (Negative) Urine Nitrite Negative (Negative) Ur Leukocyte Esterase Negative (Negative) Urine Opiates Screen Not Detected (Not Detect) Urine Fentanyl Screen Not Detected (Not Detect) Ur Barbiturates Screen Not Detected (Not Detect) Ur Phencyclidine Scrn Not Detected (Not Detect) Ur Amphetamines Screen Not Detected (Not Detect) U Benzodiazepines Scrn Not Detected (Not Detect) Urine Cocaine Screen Not Detected (Not Detect) U Marijuana (THC) Screen Not Detected (Not Detect) Independent Historian Clinical information obtained from an independent historian. History obtained from or confirmed by: Parent External Record Review External record reviewed: Office record, Outpatient record and Prior outpatient labs Prescription Management I considered prescription management with: Other (Anxiolytics) Chronic Conditions Patient?s care impacted by: Other (Developmental delay and anxiety) Critical Care Time Critical Care Time Critical Care Time: No Discharge Plan Discharge Clinical Impression: Adverse drug effect Patient Disposition: Home, Self-Care Instructions: Adverse Drug Reaction (ED) Additional Instructions: Immediate release tablets of the Effexor were sent to your pharmacy. Recommend starting 25 mg tablet tomorrow, taking for the next 2-3 days. Recommend breaking in half and taking for the next 2-3 days. If you can further break in half to continue the taper please do so. If not take the 1/2 tablet every other day until comfortable to stop. Follow-up with your prescriber, therapist, PCP. If you develop new or worsening symptoms call 911 or come back to the ER for further evaluation. Prescriptions: New venlafaxine 25 mg tablet 25 mg PO DAILY Qty: 30 0RF lorazepam [Ativan] 0.5 mg tablet 0.5 mg PO TID PRN (Reason: anxiety) Qty: 6 0RF No Action cyclobenzaprine 10 mg tablet 10 mg PO TID PRN (Reason: muscle spasm) Qty: 14 0RF naproxen 500 mg tablet 500 mg PO BID PRN (Reason: pain) Qty: 30 0RF ondansetron HCl [Zofran] 4 mg tablet 4 mg PO Q8H PRN (Reason: nausea and vomiting) Qty: 14 0RF oxcarbazepine 150 mg tablet 150 mg PO BID omeprazole 40 mg capsule,delayed release(DR/EC) 40 mg PO DAILY lorazepam 0.5 mg tablet 0.5 mg PO BID PRN (Reason: Anxiety) montelukast 10 mg tablet 10 mg PO BEDTIME fluoxetine 20 mg capsule 20 mg PO DAILY naproxen 500 mg tablet 500 mg PO BID PRN (Reason: pain) Qty: 20 0RF prednisone 20 mg tablet 40 mg PO DAILY Qty: 10 0RF albuterol sulfate 2.5 mg /3 mL (0.083 %) solution for nebulization 2.5 mg inhalation Q4-6H PRN (Reason: shortness of breath or wheezing) Qty: 90 0RF azithromycin [Zithromax Z-Olman] 250 mg tablet See Rx Instructions .ROUTE .COMPLEX Qty: 6 0RF Rx Instructions: take 500 mg today (day 1), then 250 mg for 4 days (days 2-5) prednisone 20 mg tablet 60 mg PO DAILY 5 Days Qty: 15 0RF hyoscyamine sulfate 0.125 mg tablet 0.125 mg PO QID PRN (Reason: dyspepsia) Qty: 10 0RF benzonatate 200 mg capsule 200 mg PO TID PRN (Reason: cough) Qty: 30 0RF doxycycline hyclate 100 mg tablet 100 mg PO BID Qty: 20 0RF dicyclomine 20 mg tablet 20 mg PO QID PRN (Reason: abdominal pain) Qty: 20 0RF omeprazole 40 mg capsule,delayed release(DR/EC) 40 mg PO DAILY Qty: 30 0RF lorazepam [Ativan] 1 mg tablet 1 mg PO BEDTIME PRN (Reason: anxiety) Qty: 14 0RF sucralfate 1 gram tablet 1 g PO BID Qty: 60 0RF prednisone 20 mg tablet 60 mg PO DAILY 4 Days Qty: 12 0RF benzonatate 100 mg capsule 100 mg PO TID PRN (Reason: cough) Qty: 14 0RF prednisone 20 mg tablet 60 mg PO DAILY 5 Days Qty: 15 0RF budesonide-formoterol [Symbicort] 80-4.5 mcg/actuation HFA aerosol inhaler 2 puff inhalation BID Qty: 10.2 0RF fluconazole [Diflucan] 50 mg tablet 50 mg PO DAILY Qty: 1 0RF
[2022-07-30] MEDS: LORazepam 0.5 MG TABLET PO (16:05)
== END 2022-07-30 16:57 | disposition home or self-care (01) ==
PROVIDERS: Emergency Provider Student in an Organized Health Care Education/Training Program
DX: R42 Dizziness and giddiness (principal); R53.1 Weakness; Z79.899 Other long term (current) drug therapy
CPT/HCPCS: 80307; 81003; 99283; 99284

== ENCOUNTER 2022-08-05 13:43 | Emergency (ER) | payer MEDICARE, MEDICAID, SELFPAY ==
--- NOTE | ~2022-08-05 | XR_ITS ---
EXAMINATION: XR CHEST CLINICAL INFORMATION: Altered mental status. COMPARISON: 07/05/2022 chest radiograph. TECHNIQUE: 2 views of the chest were obtained. FINDINGS: No significant abnormality is noted involving the heart, lungs, mediastinum, bony thorax or soft tissues. XR/XR chest 2V IMPRESSION: No acute cardiopulmonary process.
--- NOTE | ~2022-08-05 | CT_ITS ---
EXAMINATION: CT HEAD WITHOUT CONTRAST CLINICAL INFORMATION: Altered mental status COMPARISON: Head CT 03/18/2022 TECHNIQUE: Contiguous axial imaging was performed from the skull base to vertex without intravenous administration of contrast. This CT examination was performed using dose optimization techniques as appropriate, variously including the following: *Automated exposure control *Adjustment of mA and/or kV according to patient size (this includes techniques or standardized protocols for targeted exams where dose is matched to indication/reason for exam; i.e. extremities or head) *Use of iterative reconstruction technique DLP: 659 mGy-cm FINDINGS: There is no evidence of acute intracranial hemorrhage or territorial infarction. No abnormal mass effect or midline shift is appreciated. Mann-white differentiation is well preserved. No extra-axial fluid collections. The ventricular system and cortical sulci are normal in size for age. The osseous structures and soft tissues are normal. The visualized paranasal sinuses and mastoid air cells are well aerated. CT/CT head/brain wo IV con IMPRESSION: No acute intracranial pathology.
--- NOTE | 2022-08-05 13:48 | ECG_ITS ---
Test Reason : DYSPNEA Blood Pressure : / mmHG Vent. Rate : 091 BPM Atrial Rate : 091 BPM P-R Int : 144 ms QRS Dur : 064 ms QT Int : 352 ms P-R-T Axes : 036 -12 016 degrees QTc Int : 432 ms Normal sinus rhythm Minimal voltage criteria for LVH, may be normal variant ( R in aVL ) Borderline ECG When compared with ECG of 05-JUL-2022 00:24, No significant change was found Referred By: Generic ED Physician Electronically Signed By:BHAKTI MCQUEEN MD
[2022-08-05 14:04] VITALS: BP 116/79; PULSE 94; PULSE 96; RESP 17; TEMP 37.4; O2SAT 95; O2SAT 97; BMI 31.3
--- NOTE | 2022-08-05 14:26 | ED_ITS ---
HPI - General Adult General Chief complaint: General Medical Stated complaint: ?MED REACTION,CP,DROWSINESS PER EMS Time Seen by Provider: 08/05/22 14:09 Source: patient and EMS Mode of arrival: EMS History of Present Illness HPI narrative: 36y/o female with PMHx of asthma, anxiety, developmental delay, presenting to the ED with complaints of not feeling well this afternoon, reported substernal chest pain and abdominal pain. Patient lethargic on ED arrival, per Aunt this is abnormal for patient, was acting at baseline around 12:30pm this afternoon. History obtained from Aunt due to patient's acute mental status, admits patient picked up Clonidine and Ativan from the pharmacy yesterday or today. Patient does admit to taking both medications. Denies SI, SOB, headache, fall/trauma, N/V/D. Per aunt, has been having acute on chronic abdominal pain x months, no history of substance abuse. Of note patient was evaluated in the ED on 07/30 for possible Effexor withdrawal, was given short prescription to hold her over for the weekend up with plan to follow up with her prescriber Onset (ago): unknown Related Data Home Medications Medication Instructions Recorded Confirmed fluoxetine 20 mg capsule 20 mg PO DAILY 08/18/20 12/21/20 lorazepam 0.5 mg tablet 0.5 mg PO BID PRN Anxiety 08/18/20 12/21/20 montelukast 10 mg tablet 10 mg PO BEDTIME 08/18/20 12/21/20 omeprazole 40 mg capsule,delayed 40 mg PO DAILY 08/18/20 12/21/20 release oxcarbazepine 150 mg tablet 150 mg PO BID 08/18/20 12/21/20 Previous Rx's Medication Instructions Recorded naproxen 500 mg tablet 500 mg PO BID PRN pain #20 tabs 09/28/20 albuterol sulfate 2.5 mg/3 mL 2.5 mg (3 mL) inhalation Q4-6H PRN 12/07/20 (0.083 %) solution for nebulization shortness of breath or wheezing #90 mL prednisone 20 mg tablet 40 mg PO DAILY #10 tabs 12/07/20 budesonide-formoterol HFA 80 2 puff inhalation BID #10.2 grams 12/17/20 mcg-4.5 mcg/actuation aerosol inhaler (Symbicort) fluconazole 50 mg tablet (Diflucan) 50 mg PO DAILY #1 tab 12/17/20 cyclobenzaprine 10 mg tablet 10 mg PO TID PRN muscle spasm #14 02/13/21 tabs naproxen 500 mg tablet 500 mg PO BID PRN pain #30 tabs 02/13/21 ondansetron HCl 4 mg tablet 4 mg PO Q8H PRN nausea and 02/13/21 (Zofran) vomiting #14 tabs azithromycin 250 mg tablet See Rx Instructions PO .COMPLEX #6 04/12/21 (Zithromax Z-Olman) tabs prednisone 20 mg tablet 60 mg PO DAILY 5 days #15 tabs 04/12/21 hyoscyamine sulfate 0.125 mg tablet 0.125 mg PO QID PRN dyspepsia #10 09/11/21 tabs benzonatate 100 mg capsule 100 mg PO TID PRN cough #14 caps 12/04/21 prednisone 20 mg tablet 60 mg PO DAILY 4 days #12 tabs 12/04/21 prednisone 20 mg tablet 60 mg PO DAILY 5 days #15 tabs 01/16/22 benzonatate 200 mg capsule 200 mg PO TID PRN cough #30 caps 03/07/22 doxycycline hyclate 100 mg tablet 100 mg PO BID #20 tabs 03/07/22 dicyclomine 20 mg tablet 20 mg PO QID PRN abdominal pain 06/01/22 #20 tabs lorazepam 1 mg tablet (Ativan) 1 mg PO BEDTIME PRN anxiety #14 06/01/22 tabs omeprazole 40 mg capsule,delayed 40 mg PO DAILY #30 caps 06/01/22 release sucralfate 1 gram tablet 1 g PO BID #60 tabs 06/01/22 lorazepam 0.5 mg tablet (Ativan) 0.5 mg PO TID PRN anxiety #6 tabs 07/30/22 venlafaxine 25 mg tablet 25 mg PO DAILY #30 tabs 07/30/22 Allergies Allergy/AdvReac Type Severity Reaction Status Date / Time amoxicillin [AMOXICILLIN] Allergy Unknown RASH Verified 06/01/22 14:47 cefuroxime [From CEFTIN] Allergy Unknown HIVES, Verified 06/01/22 14:47 ANAPHYLAXIS divalproex sodium Allergy Unknown TALKS Verified 06/01/22 14:47 [From DEPAKOTE] WEIRD Penicillins [PENICILLINS] Allergy Unknown HIVES Verified 06/01/22 14:47 Review of Systems Review of Systems: Constitutional: No Fever, No Fatigue, No Malaise ENT/Mouth: No Ear Pain, No Nasal Congestion, No sore throat Cardiovascular: + Chest Pain, No SOB Respiratory: No Cough, No Dyspnea Gastrointestinal: No Nausea, No Vomiting, No Abdominal pain Musculoskeletal: No joint pain Skin: No Skin Lesions, No rash Neuro: +lethargic, No Weakness, No Headache Psych: No SI/HI ROS limited secondary to acute mental status Yes all other systems are reviewed and are negative Constitutional: Constitutional: Reports as per [facility] Past Medical History Attestation statement: The following information was validated with the patient. Medical History Asthma Depression No known health problems Social History Social History Alcohol intake: never Patient Tobacco Use Status: Never used Tobacco Substance Use Type: Marijuana Advance Directives: No Advance Directives Information Provided: Yes Physical Exam ED Vital Signs: Vital Signs - 24 hr 08/05/22 14:04 08/05/22 17:27 Temperature 99.3 F Pulse Rate 94 103 H Respiratory Rate 17 13 Blood Pressure 108/73 Pulse Oximetry 97 98 Oxygen Delivery Method Room Air Room Air BMI result Body Mass Index 31.3 Const General: cooperative, no acute distress and lethargic Orientation/consciousness: lethargic Limitations: altered mental status HENMT Head: Yes normal to inspection and Yes atraumatic Ears: hearing grossly normal bilaterally General nose exam: Normal external nose present Face and sinus: Yes normal facial exam Eyes General: appearance normal, both eyes and all related structures Pupils: Equal, round and reactive pupils present EOM: EOMs intact bilaterally Neck Neck: Yes normal visual inspection and Yes no meningeal signs Resp Effort & Inspection: normal respiratory effort and no respiratory distress Auscultation: clear to auscultation bilaterally Cardio Rate: regular rate Heart sounds: S1 normal heart sound present and S2 normal heart sound present GI Inspection: Yes normal to inspection Palpation (GI): Soft to palpation, nontender, no guarding and not rigid Skin Rashes: no rashes Wounds: no wounds Neuro General: tone normal, moves all extremities, no meningeal signs and no focal m otor deficits Cranial nerves: Yes Equal, round and reactive pupils present Gait exam (Neuro): Normal gait present Extrem General: Yes normal to inspection Psych Thought content: suicidality and no homicidality Course Course Course Narrative: -1557--no leukocytosis. UA negative, negative, tox screen negative -labs unremarkable XR chest 2V IMPRESSION: No acute cardiopulmonary process. CT head/brain wo IV con IMPRESSION: No acute intracranial pathology. > 1745--on re-evaluation patient awake and alert, ambulating to commode independently. A&O x3 at baseline. Mother at bedside is in agreement. Patient states she took newly prescribed clonidine due to suspected Effexor withdrawal, medication made her feel off/unwell then called EMS and took her Ativan shortly after. Has never taken both medications/together. Concern for accidental polypharmacy. Discussed with patient at length to avoid mixing medications/clonidine in general if made her feel as she did today. Patient and mother feels safe for discharge at this time Results discussed with patient including worrisome signs and symptoms and strict return precautions, and when to return to the emergency department. They verba lized understanding and feel safe for discharge at this time. Medical Decision Making Medical Decision Making [facility] Narrative: 36y/o female with PMHx of asthma, anxiety, developmental delay, presenting to the ED with complaints of not feeling well this afternoon, reported substernal chest pain and abdominal pain. On exam vital signs stable, lethargic, arousable to voice, appears under the influence, following commands, denies SI. Concern for medication adverse reaction/over-sedation with Clonidine and Ativan [employer]AN[employer] HAND. Rule out metabolic/infectious etiology and ICH. Lower suspicion for suicidal attempt Plan: EKG, labs, UA, tox screen, CXR, head CT Please refer to course for remaining clinical decision making, interpretation of labs/imaging results, and discussions with consultants and/or family members. Differential Diagnosis Differential Diagnoses: The differential diagnosis associated with the presentation includes as above Admission/Observation Consideration of admission/observation: Escalation of care including admission/observation considered Lab Data [facility] Lab Attestation statement: I reviewed the patient's lab results. 08/05/22 15:15 08/05/22 15:15 Labs: Lab Results 08/05/22 08/05/22 08/05/22 Range/Units 15:06 15:06 15:06 WBC (4.8-10.8) X10*3/uL RBC (4.20-5.50) X10*6/uL Hgb (12.0-16.0) g/dl Hct (37.0-47.0) % MCV (80.0-98.0) fL MCH (27.0-33.0) pg MCHC (31.0-35.0) g/dl RDW (11.0-16.0) % Plt Count (160-400) X10*3/uL MPV (9.4-12.3) fL Immature Gran % (Auto) (0.0-0.4) % Neut % (Auto) (45-73) % Lymph % (Auto) (20-40) % Slope % (Auto) (2-11) % Eos % (Auto) (0-4) % Baso % (Auto) (0-2) % Lymph # (Auto) (1.2-4.9) X10*3/uL Slope # (Auto) (0.1-1.2) X10*3/uL Eos # (Auto) (0.0-0.4) X10*3/uL Baso # (Auto) (0.0-0.2) X10*3/uL Abs Immat Gran (auto) (0.00-0.03) X10*3/uL Absolute Neuts (auto) (2.0-8.3) x10*3/uL Absolute Nucleated RBC (0.0-0.012) X10*3/uL Nucleated RBC % (auto) (0.0-0.2) /100WBC Sodium (135-145) mmol/L Potassium (3.3-5.1) mmol/L Chloride (96-108) mmol/L Carbon Dioxide (22-29) mmol/L Anion Gap (12-20) BUN (9-16) mg/dL Creatinine (0.5-1.4) mg/dL Estim Creat Clear Calc Estimated GFR Random Glucose (60-115) mg/dL Calcium (8.4-10.2) mg/dL Magnesium (1.6-2.6) mg/dL Total Bilirubin (0.0-1.0) mg/dL Direct Bilirubin (0.0-0.5) mg/dL AST (5-31) U/L ALT (0-31) U/L Alkaline Phosphatase (39-117) U/L Troponin I High Sens (<3.5-17.0) ng/L Total Protein (6.5-8.0) g/dL Albumin (3.5-5.0) g/dL Lipase (8-78) U/L Urine Color Yellow Urine Appearance Clear Urine pH 6.5 (5.0-9.0) Ur Specific [place] 1.010 (1.005-1.025) Urine Protein Negative (Neg-Trace) mg/dL Urine Glucose (UA) Negative (Negative) mg/dL Urine Ketones Negative (Negative) mg/dL Urine Blood Negative (Negative) Urine Nitrite Negative (Negative) Ur Leukocyte Esterase Trace H (Negative) Urine RBC 0-2 (0-2) /HPF Urine WBC 0-5 (0-5) /HPF Ur Squamous Epith Cells 0-2 (0-2) /HPF Urine Bacteria None Seen (None Seen) Hyaline Casts 0-2 (0-2) /LPF Urine Test NEGATIVE (NEGATIVE) Salicylates (15-30) mg/dL Urine Opiates Screen Not Detected (Not Detect) Urine Fentanyl Screen Not Detected (Not Detect) Acetaminophen (<30) mcg/mL Ur Barbiturates Screen Not Detected (Not Detect) Ur Phencyclidine Scrn Not Detected (Not Detect) Ur Amphetamines Screen Not Detected (Not Detect) U Benzodiazepines Scrn Not Detected (Not Detect) Urine Cocaine Screen Not Detected (Not Detect) U Marijuana (THC) Screen Not Detected (Not Detect) Ethyl Alcohol mg/dL 08/05/22 08/05/22 08/05/22 Range/Units 15:15 15:15 15:15 WBC 9.2 (4.8-10.8) X10*3/uL RBC 4.09 L (4.20-5.50) X10*6/uL Hgb 12.3 (12.0-16.0) g/dl Hct 37.6 (37.0-47.0) % MCV 91.9 (80.0-98.0) fL MCH 30.1 (27.0-33.0) pg MCHC 32.7 (31.0-35.0) g/dl RDW 12.9 (11.0-16.0) % Plt Count 298 (160-400) X10*3/uL MPV 10.3 (9.4-12.3) fL Immature Gran % (Auto) 0.4 (0.0-0.4) % Neut % (Auto) 59.8 (45-73) % Lymph % (Auto) 28.9 (20-40) % Slope % (Auto) 8.3 (2-11) % Eos % (Auto) 2.3 (0-4) % Baso % (Auto) 0.3 (0-2) % Lymph # (Auto) 2.7 (1.2-4.9) X10*3/uL Slope # (Auto) 0.8 (0.1-1.2) X10*3/uL Eos # (Auto) 0.2 (0.0-0.4) X10*3/uL Baso # (Auto) 0.0 (0.0-0.2) X10*3/uL Abs Immat Gran (auto) 0.04 H (0.00-0.03) X10*3/uL Absolute Neuts (auto) 5.5 (2.0-8.3) x10*3/uL Absolute Nucleated RBC 0.000 (0.0-0.012) X10*3/uL Nucleated RBC % (auto) 0.0 (0.0-0.2) /100WBC Sodium 142 (135-145) mmol/L Potassium 4.1 (3.3-5.1) mmol/L Chloride 111 H (96-108) mmol/L Carbon Dioxide 26 (22-29) mmol/L Anion Gap 9 L (12-20) BUN 8 L (9-16) mg/dL Creatinine 0.82 (0.5-1.4) mg/dL Estim Creat Clear Calc 76.0 Estimated GFR > 60 Random Glucose 91 (60-115) mg/dL Calcium 9.0 (8.4-10.2) mg/dL Magnesium 2.1 (1.6-2.6) mg/dL Total Bilirubin 0.2 (0.0-1.0) mg/dL Direct Bilirubin < 0.2 (0.0-0.5) mg/dL AST 14 (5-31) U/L ALT 17 (0-31) U/L Alkaline Phosphatase 82 (39-117) U/L Troponin I High Sens < 3.5 (<3.5-17.0) ng/L Total Protein 6.5 (6.5-8.0) g/dL Albumin 4.0 (3.5-5.0) g/dL Lipase 34 (8-78) U/L Urine Color Urine Appearance Urine pH (5.0-9.0) Ur Specific [place] (1.005-1.025) Urine Protein (Neg-Trace) mg/dL Urine Glucose (UA) (Negative) mg/dL Urine Ketones (Negative) mg/dL Urine Blood (Negative) Urine Nitrite (Negative) Ur Leukocyte Esterase (Negative) Urine RBC (0-2) /HPF Urine WBC (0-5) /HPF Ur Squamous Epith Cells (0-2) /HPF Urine Bacteria (None Seen) Hyaline Casts (0-2) /LPF Urine Test (NEGATIVE) Salicylates < 5.0 L (15-30) mg/dL Urine Opiates Screen (Not Detect) Urine Fentanyl Screen (Not Detect) Acetaminophen < 17 (<30) mcg/mL Ur Barbiturates Screen (Not Detect) Ur Phencyclidine Scrn (Not Detect) Ur Amphetamines Screen (Not Detect) U Benzodiazepines Scrn (Not Detect) Urine Cocaine Screen (Not Detect) U Marijuana (THC) Screen (Not Detect) Ethyl Alcohol < 10 mg/dL Independent Interpretation I performed an independent interpretation of an: EKG Radiology Impression Discussion of test interpretation with radiology: I have reviewed the radiologist's reading. Discharge Plan Discharge Clinical Impression: Adverse drug reaction Patient Disposition: Home, Self-Care Instructions: Anxiolysis in Adults (ED) Additional Instructions: The medications you took over sedated you. your blood work, x-ray, and head CT were unremarkable Please avoid mixing these medications. If clonidine may do feel unwell please avoid this medication altogether Please follow-up closely with your prescriber. If symptoms persist or worsen return to the emergency department Prescriptions: No Action cyclobenzaprine 10 mg tablet 10 mg PO TID PRN (Reason: muscle spasm) Qty: 14 0RF naproxen 500 mg tablet 500 mg PO BID PRN (Reason: pain) Qty: 30 0RF ondansetron HCl [Zofran] 4 mg tablet 4 mg PO Q8H PRN (Reason: nausea and vomiting) Qty: 14 0RF oxcarbazepine 150 mg tablet 150 mg PO BID omeprazole 40 mg capsule,delayed release(DR/EC) 40 mg PO DAILY lorazepam 0.5 mg tablet 0.5 mg PO BID PRN (Reason: Anxiety) montelukast 10 mg tablet 10 mg PO BEDTIME fluoxetine 20 mg capsule 20 mg PO DAILY naproxen 500 mg tablet 500 mg PO BID PRN (Reason: pain) Qty: 20 0RF prednisone 20 mg tablet 40 mg PO DAILY Qty: 10 0RF albuterol sulfate 2.5 mg /3 mL (0.083 %) solution for nebulization 2.5 mg inhalation Q4-6H PRN (Reason: shortness of breath or wheezing) Qty: 90 0RF azithromycin [Zithromax Z-Olman] 250 mg tablet See Rx Instructions .ROUTE .COMPLEX Qty: 6 0RF Rx Instructions: take 500 mg today (day 1), then 250 mg for 4 days (days 2-5) prednisone 20 mg tablet 60 mg PO DAILY 5 Days Qty: 15 0RF hyoscyamine sulfate 0.125 mg tablet 0.125 mg PO QID PRN (Reason: dyspepsia) Qty: 10 0RF benzonatate 200 mg capsule 200 mg PO TID PRN (Reason: cough) Qty: 30 0RF doxycycline hyclate 100 mg tablet 100 mg PO BID Qty: 20 0RF dicyclomine 20 mg tablet 20 mg PO QID PRN (Reason: abdominal pain) Qty: 20 0RF omeprazole 40 mg capsule,delayed release(DR/EC) 40 mg PO DAILY Qty: 30 0RF lorazepam [Ativan] 1 mg tablet 1 mg PO BEDTIME PRN (Reason: anxiety) Qty: 14 0RF sucralfate 1 gram tablet 1 g PO BID Qty: 60 0RF venlafaxine 25 mg tablet 25 mg PO DAILY Qty: 30 0RF lorazepam [Ativan] 0.5 mg tablet 0.5 mg PO TID PRN (Reason: anxiety) Qty: 6 0RF prednisone 20 mg tablet 60 mg PO DAILY 4 Days Qty: 12 0RF benzonatate 100 mg capsule 100 mg PO TID PRN (Reason: cough) Qty: 14 0RF prednisone 20 mg tablet 60 mg PO DAILY 5 Days Qty: 15 0RF budesonide-formoterol [Symbicort] 80-4.5 mcg/actuation HFA aerosol inhaler 2 puff inhalation BID Qty: 10.2 0RF fluconazole [Diflucan] 50 mg tablet 50 mg PO DAILY Qty: 1 0RF Referrals: [facility] [Provider Group] [facility] [Outside] Physician,Unknown J [Primary Care Provider] -
[2022-08-05 15:18] LABS: Appearance Urine Clear; Color Urine Yellow; Glucose Urine UA Negative (Negative); Leukocyte Esterase Urine Trace (Negative); Nitrite Urine Negative (Negative); PH 6.5 (5.0-9.0); UMIC TRIGGER UACC YES; Urine Blood Negative (Negative); Urine Ketones Negative (Negative); Urine Protein Negative (Neg-Trace)
[2022-08-05 15:19] LABS: MANUAL DIFF FLAG NO
[2022-08-05 15:20] LABS: UPreg QC Valid YES; Urine Pregnancy NEGATIVE (NEGATIVE)
[2022-08-05 15:21] LABS: Basophils Percent Auto 0.3 % (0-2); Eosinophils Absolute Auto 0.2 X10*3/uL (0.0-0.4); Eosinophils Percent Auto 2.3 % (0-4); Hematocrit 37.6 % (37.0-47.0); Hemoglobin 12.3 g/dl (12.0-16.0); Imm Gran Abs Auto 0.04 X10*3/uL (0.00-0.03); Imm Gran Pct Auto 0.4 % (0.0-0.4); Lymphocytes Absolute Auto 2.7 X10*3/uL (1.2-4.9); Lymphocytes Percent Auto 28.9 % (20-40); Mean Corpuscular HGB Conc 32.7 g/dl (31.0-35.0); Mean Corpuscular Hemoglobin 30.1 pg (27.0-33.0); Mean Corpuscular Volume 91.9 fL (80.0-98.0); Mean Platelet Volume 10.3 fL (9.4-12.3); Monocytes Absolute Auto 0.8 X10*3/uL (0.1-1.2); Monocytes Percent Auto 8.3 % (2-11); Neutrophils Absolute Auto 5.5 x10*3/uL (2.0-8.3); Neutrophils Percent Auto 59.8 % (45-73); Platelet Count 298 X10*3/uL (160-400); Red Blood Count 4.09 X10*6/uL (4.20-5.50); Red Cell Distribution Width 12.9 % (11.0-16.0); White Blood Count 9.2 X10*3/uL (4.8-10.8)
[2022-08-05 15:23] LABS: Bacteria Urine None Seen (None Seen); Hyaline Casts Urine 0-2 /LPF (0-2); RBC Urine 0-2 /HPF (0-2); Squamous Epithelial Cell Urine 0-2 /HPF (0-2); WBC Urine 0-5 /HPF (0-5)
[2022-08-05 15:46] LABS: Amphetamine Screen Urine Not Detected (Not Detect); Barbiturates, Urine Not Detected (Not Detect); Benzodiazepines Screen Urine Not Detected (Not Detect); Cannabinoid Screen Urine Not Detected (Not Detect); Cocaine Screen Urine Not Detected (Not Detect); Fentanyl, urine Not Detected (Not Detect); Opiate Screen Urine Not Detected (Not Detect); Phencyclidine Screen Urine Not Detected (Not Detect)
[2022-08-05 16:06] LABS: Acetaminophen LAB < 17 mcg/mL (<30); Alanine Aminotransferase 17 U/L (0-31); Alkaline Phosphatase 82 U/L (39-117); Anion Gap 9 (12-20); Aspartate Amino Transferase 14 U/L (5-31); Bilirubin Direct < 0.2 mg/dL (0.0-0.5); Bilirubin Total 0.2 mg/dL (0.0-1.0); Blood Urea Nitrogen 8 mg/dL (9-16); Carbon Dioxide 26 mmol/L (22-29); Chloride 111 mmol/L (96-108); Estimated Glomerular Filt Rate > 60; Ethanol < 10 mg/dL; Glucose Random 91 mg/dL (60-115); Lipase 34 U/L (8-78); Magnesium 2.1 mg/dL (1.6-2.6); Potassium 4.1 mmol/L (3.3-5.1); Salicylate < 5.0 mg/dL (15-30); Sodium 142 mmol/L (135-145); Total Protein 6.5 g/dL (6.5-8.0); Troponin-I High Sensitivity < 3.5 ng/L (<3.5-17.0)
--- NOTE | 2022-08-05 16:34 | PC.NURSE ---
Patient assisted to bedside commode with 1 assist. patient still drowsy but is asking for something to drink and to be discharged home.
[2022-08-05 17:27] VITALS: BP 108/73; PULSE 103; RESP 13; O2SAT 98
--- NOTE | 2022-08-05 17:30 | PC.NURSE ---
pt a&ox3, vss, pt expresses desire for discharge, provider notified.
[2022-08-05 18:08] VITALS: BP 106/72; PULSE 92; RESP 16; TEMP 37.1; O2SAT 98
== END 2022-08-05 18:13 | disposition home or self-care (01) ==
PROVIDERS: Physician Assistant; Emergency Provider Student in an Organized Health Care Education/Training Program
DX: R07.89 Other chest pain (principal); T43.215A Adverse effect of selective serotonin and norepinephrine reuptake inhibitors, initial encounter; R40.0 Somnolence; R10.9 Unspecified abdominal pain; R06.02 Shortness of breath; R51.9 Headache, unspecified; Y92.9 Unspecified place or not applicable; Z79.899 Other long term (current) drug therapy
CPT/HCPCS: 36415; 70450; 71046; 80048; 80076; 80143; 80179; 80307; 81001; 81025; 82077; 83690; 83735; 84484; 85025; 93005; 99284

== ENCOUNTER 2022-09-16 07:10 | Emergency (ER) | payer MEDICARE, MEDICAID, SELFPAY ==
--- NOTE | ~2022-09-16 | XR_ITS ---
EXAMINATION: XR KNEE, RIGHT CLINICAL INFORMATION: Pain no trauma COMPARISON: None available. TECHNIQUE: Four views of the right knee. FINDINGS: There is no evidence of acute fracture or dislocation of the right knee. No right knee effusion. Joint spaces are maintained. No destructive bony lesion. XR/XR knee RT 4V IMPRESSION: No significant right knee abnormality.
--- NOTE | ~2022-09-16 | US_ITS ---
EXAMINATION: US VENOUS ULTRASOUND WITH DOPPLER LOWER EXTREMITY, RIGHT CLINICAL INFORMATION: Pain and swelling. COMPARISON: None available. TECHNIQUE: Ultrasound of the deep veins is performed from the hip to the calf with compression sonography and color and pulse Doppler assessment. Spectral analysis with color-flow imaging is performed. FINDINGS: There is normal venous compression and respiratory variation and augmented flow. The visualized common femoral vein, superficial femoral vein, profunda femoral vein, popliteal vein, and the trifurcation region shows no evidence of deep venous thrombosis. There is no significant popliteal fossa cyst. If the patient's symptoms persist, followup ultrasound in 5 days 7 days might be of value to exclude proximal propagation from a non-visualized calf vein. US/US venous duplex LE RT IMPRESSION: No DVT demonstrated in the right lower extremity.
[2022-09-16 07:45] VITALS: BP 125/83; PULSE 75; RESP 19; TEMP 37.1; O2SAT 97; BMI 29.1
--- NOTE | 2022-09-16 08:52 | ED.LOWEXIN ---
HPI - Extremity Injury (Lower) General Chief Complaint: Extremity Injury, Lower Stated Complaint: R swollen leg Time Seen by Provider: 09/16/22 07:56 Source: patient Mode of arrival: ambulatory Limitations: no limitations History of Present Illness HPI Narrative: 37-year-old female presented for evaluation of right lower extremities pain and swelling. Patient recently was treated for ringworm with atopic antifungal cream provided by Urgent Care, her PCP thought it could be erythema migrans and Lyme disease patient was started on doxycycline and patient finished a course for doxycycline. The rash was on the patient's right thigh which disappeared now. Patient declined any headache, fever, chills, photophobia, neck stiffness, or abdominal pain. Related Data Home Medications Medication Instructions Recorded Confirmed fluoxetine 20 mg capsule 20 mg PO DAILY 08/18/20 12/21/20 lorazepam 0.5 mg tablet 0.5 mg PO BID PRN Anxiety 08/18/20 12/21/20 montelukast 10 mg tablet 10 mg PO BEDTIME 08/18/20 12/21/20 omeprazole 40 mg capsule,delayed 40 mg PO DAILY 08/18/20 12/21/20 release oxcarbazepine 150 mg tablet 150 mg PO BID 08/18/20 12/21/20 Previous Rx's Medication Instructions Recorded naproxen 500 mg tablet 500 mg PO BID PRN pain #20 tabs 09/28/20 albuterol sulfate 2.5 mg/3 mL 2.5 mg (3 mL) inhalation Q4-6H PRN 12/07/20 (0.083 %) solution for nebulization shortness of breath or wheezing #90 mL prednisone 20 mg tablet 40 mg PO DAILY #10 tabs 12/07/20 budesonide-formoterol HFA 80 2 puff inhalation BID #10.2 grams 12/17/20 mcg-4.5 mcg/actuation aerosol inhaler (Symbicort) fluconazole 50 mg tablet (Diflucan) 50 mg PO DAILY #1 tab 12/17/20 cyclobenzaprine 10 mg tablet 10 mg PO TID PRN muscle spasm #14 02/13/21 tabs naproxen 500 mg tablet 500 mg PO BID PRN pain #30 tabs 02/13/21 ondansetron HCl 4 mg tablet 4 mg PO Q8H PRN nausea and 02/13/21 (Zofran) vomiting #14 tabs azithromycin 250 mg tablet See Rx Instructions PO .COMPLEX #6 04/12/21 (Zithromax Z-Olman) tabs prednisone 20 mg tablet 60 mg PO DAILY 5 days #15 tabs 04/12/21 hyoscyamine sulfate 0.125 mg tablet 0.125 mg PO QID PRN dyspepsia #10 09/11/21 tabs benzonatate 100 mg capsule 100 mg PO TID PRN cough #14 caps 12/04/21 prednisone 20 mg tablet 60 mg PO DAILY 4 days #12 tabs 12/04/21 prednisone 20 mg tablet 60 mg PO DAILY 5 days #15 tabs 01/16/22 benzonatate 200 mg capsule 200 mg PO TID PRN cough #30 caps 03/07/22 doxycycline hyclate 100 mg tablet 100 mg PO BID #20 tabs 03/07/22 dicyclomine 20 mg tablet 20 mg PO QID PRN abdominal pain 06/01/22 #20 tabs lorazepam 1 mg tablet (Ativan) 1 mg PO BEDTIME PRN anxiety #14 06/01/22 tabs omeprazole 40 mg capsule,delayed 40 mg PO DAILY #30 caps 06/01/22 release sucralfate 1 gram tablet 1 g PO BID #60 tabs 06/01/22 lorazepam 0.5 mg tablet (Ativan) 0.5 mg PO TID PRN anxiety #6 tabs 07/30/22 venlafaxine 25 mg tablet 25 mg PO DAILY #30 tabs 07/30/22 levofloxacin 500 mg tablet 500 mg PO DAILY #7 tabs 09/16/22 Allergies Allergy/AdvReac Type Severity Reaction Status Date / Time amoxicillin [AMOXICILLIN] Allergy Unknown RASH Verified 06/01/22 14:47 cefuroxime [From CEFTIN] Allergy Unknown HIVES, Verified 06/01/22 14:47 ANAPHYLAXIS divalproex sodium Allergy Unknown TALKS Verified 06/01/22 14:47 [From DEPAKOTE] WEIRD Penicillins [PENICILLINS] Allergy Unknown HIVES Verified 06/01/22 14:47 Review of Systems Review of Systems: All other systems are reviewed and are negative Constitutional: Reports as per HPI and Reports no additional constitutional complaints Eyes: Reports as per HPI and Reports no additional eye complaints Reports system reviewed and no additional complaints, except as documented Cardiovascular: Reports as per HPI and Reports no additional cardiovascular complaints Respiratory: Reports as per HPI and Reports no additional respiratory complaints Gastrointestinal: Reports as per HPI and Reports no additional gastrointestinal complaints Genitourinary: Reports no additional female genitourinary complaints Musculoskeletal: Reports no additional musculoskeletal complaints Skin/Breast: Reports system reviewed and no additional complaints, except as docu Psychiatric: Reports no additional psychiatric complaints Endocrine: Reports no additional endocrine complaints Hematologic/Lymphatic: Reports no additional hematologic/lymphatic complaints Allergic/Immunologic: Reports no additional allergic/immunologic complaints Reports system reviewed and no additional complaints, except as documented and Reports Abnormal speech present [facility] Past Medical History Medical History Asthma Depression No known health problems Social History Social History Alcohol intake: never Patient Tobacco Use Status: Never used Tobacco Substance Use Type: Marijuana Advance Directives: No Physical Exam Vital Signs: Vital Signs: Last Vital Signs Temp 98.7 F 09/16/22 10:03 Pulse 76 09/16/22 10:03 Resp 17 09/16/22 10:03 BP 115/71 09/16/22 10:03 Pulse Ox 99 09/16/22 10:03 O2 Del Method Room Air 09/16/22 10:03 BMI result Body Mass Index 29.1 Vital signs have been reviewed as appeared to be correct. Blood pressure normal. Heart rate normal. Respiration rate normal. Temperature normal. Oxygen saturation normal. Appearance: Alert. Oriented X3. No acute distress. Head: Normal external exam. Normocephalic. Atraumatic. No [place] signs noted. No raccoon eyes noted Eyes: PERRLA. EOMI. Conjunctiva and sclera normal. Eyelids normal. ENT: TM's Normal. Pharynx normal. Uvula midline. Moist mucous membranes. No trismus noted. No drooling noted. No muffled voice noted. Neck: Normal inspection. Neck supple. FROM. No adenopathy. Thyroid Normal. No meningeal signs. No neck mass noted. CVS: Normal heart rate and rhythm. Heart sound normal. No murmurs noted. Pulses normal throughout. Respiratory: No respiratory distress. Painless inspiration. Breath sounds normal. No wheezes/rales/rhonchi noted. Chest nontender. No accessory muscle usage noted or decreased air movement noted. Abdomen: Soft and nontender. Bowel sounds normal in all 4 quadrants. No distention noted. No organomegaly noted. No visible injury noted. Back: No CVA tenderness. Full range of motion noted. Skin: Skin warm and dry. Normal skin color. Normal skin turgor. No rashes/lesions/lacerations noted. Extremities: No lower extremity edema. Extremities exhibit normal range of motion. Extremities nontender. Neuro: Oriented X 3. Cranial nerve exam: II-XII are grossly intact No motor deficit. No sensory deficit. Reflexes normal. Course Course Course Narrative: 37-year-old female came in with right lower extremity pain, patient was recently treated for ringworm with topical antifungal cream seem like was mistaken with EM PCP cover the patient with doxycycline patient presented with right lower extremities pain, patient has unremarkable lab, no concern for rhabdomyolysis, no concern for DVT. Lyme serology IgG/IgM is pending (patient was treated by her PCP use doxycycline). Mild UTI will start on levofloxacin. Medications Administered Discontinued Medications Generic Name Dose Route Start Last Admin Trade Name Freq PRN Reason Stop Dose Admin Lorazepam 0.5 mg 09/16/22 09:43 09/16/22 10:17 Lorazepam 0.5 Mg Tablet PO 09/16/22 09:44 0.5 mg ONCE ONE Administration Medical Decision Making Differential Diagnosis Differential Diagnoses: The differential diagnosis associated with the presentation includes (Lyme disease, rhabdomyolysis, DVT, orthopaedic fracture, UTI, , electrolyte disturbance, acute renal injury, anemia.) Admission/Observation Consideration of admission/observation: Escalation of care including admission/observation considered Lab Data MDM Lab Attestation statement: I reviewed the patient's lab results. 09/16/22 09:05 09/16/22 09:05 Labs: Lab Results 09/16/22 09/16/22 09/16/22 Range/Units 09:05 09:05 09:05 WBC 10.8 (4.8-10.8) X10*3/uL RBC 4.20 (4.20-5.50) X10*6/uL Hgb 12.4 (12.0-16.0) g/dl Hct 38.9 (37.0-47.0) % MCV 92.6 (80.0-98.0) fL MCH 29.5 (27.0-33.0) pg MCHC 31.9 (31.0-35.0) g/dl RDW 13.2 (11.0-16.0) % Plt Count 308 (160-400) X10*3/uL MPV 10.6 (9.4-12.3) fL Immature Gran % (Auto) 0.3 (0.0-0.4) % Neut % (Auto) 72.6 (45-73) % Lymph % (Auto) 18.4 L (20-40) % [place] % (Auto) 6.9 (2-11) % Eos % (Auto) 1.5 (0-4) % Baso % (Auto) 0.3 (0-2) % Lymph # (Auto) 2.0 (1.2-4.9) X10*3/uL [place] # (Auto) 0.7 (0.1-1.2) X10*3/uL Eos # (Auto) 0.2 (0.0-0.4) X10*3/uL Baso # (Auto) 0.0 (0.0-0.2) X10*3/uL Abs Immat Gran (auto) 0.03 (0.00-0.03) X10*3/uL Absolute Neuts (auto) 7.8 (2.0-8.3) x10*3/uL Absolute Nucleated RBC 0.000 (0.0-0.012) X10*3/uL Nucleated RBC % (auto) 0.0 (0.0-0.2) /100WBC D-Dimer High Sensitivty < 150 NG/ML Sodium 142 (135-145) mmol/L Potassium 4.4 (3.3-5.1) mmol/L Chloride 109 H (96-108) mmol/L Carbon Dioxide 26 (22-29) mmol/L Anion Gap 11 L (12-20) BUN 9 (9-16) mg/dL Creatinine 0.75 (0.5-1.4) mg/dL Estim Creat Clear Calc 104.8 Estimated GFR > 60 Random Glucose 93 (60-115) mg/dL Calcium 9.1 (8.4-10.2) mg/dL Urine Color Urine Appearance Urine pH (5.0-9.0) Ur Specific [place] (1.005-1.025) Urine Protein (Neg-Trace) mg/dL Urine Glucose (UA) (Negative) mg/dL Urine Ketones (Negative) mg/dL Urine Blood (Negative) Urine Nitrite (Negative) Ur Leukocyte Esterase (Negative) Urine RBC (0-2) /HPF Urine WBC (0-5) /HPF Ur Squamous Epith Cells (0-2) /HPF Urine Bacteria (None Seen) Hyaline Casts (0-2) /LPF Urine Test (NEGATIVE) 09/16/22 09/16/22 Range/Units 09:58 09:58 WBC (4.8-10.8) X10*3/uL RBC (4.20-5.50) X10*6/uL Hgb (12.0-16.0) g/dl Hct (37.0-47.0) % MCV (80.0-98.0) fL MCH (27.0-33.0) pg MCHC (31.0-35.0) g/dl RDW (11.0-16.0) % Plt Count (160-400) X10*3/uL MPV (9.4-12.3) fL Immature Gran % (Auto) (0.0-0.4) % Neut % (Auto) (45-73) % Lymph % (Auto) (20-40) % [place] % (Auto) (2-11) % Eos % (Auto) (0-4) % Baso % (Auto) (0-2) % Lymph # (Auto) (1.2-4.9) X10*3/uL [place] # (Auto) (0.1-1.2) X10*3/uL Eos # (Auto) (0.0-0.4) X10*3/uL Baso # (Auto) (0.0-0.2) X10*3/uL Abs Immat Gran (auto) (0.00-0.03) X10*3/uL Absolute Neuts (auto) (2.0-8.3) x10*3/uL Absolute Nucleated RBC (0.0-0.012) X10*3/uL Nucleated RBC % (auto) (0.0-0.2) /100WBC D-Dimer High Sensitivty NG/ML Sodium (135-145) mmol/L Potassium (3.3-5.1) mmol/L Chloride (96-108) mmol/L Carbon Dioxide (22-29) mmol/L Anion Gap (12-20) BUN (9-16) mg/dL Creatinine (0.5-1.4) mg/dL Estim Creat Clear Calc Estimated GFR Random Glucose (60-115) mg/dL Calcium (8.4-10.2) mg/dL Urine Color Yellow Urine Appearance Clear Urine pH 6.5 (5.0-9.0) Ur Specific [place] 1.025 (1.005-1.025) Urine Protein Trace (Neg-Trace) mg/dL Urine Glucose (UA) Negative (Negative) mg/dL Urine Ketones Trace (Negative) mg/dL Urine Blood Negative (Negative) Urine Nitrite Negative (Negative) Ur Leukocyte Esterase Trace H (Negative) Urine RBC 3-5 H (0-2) /HPF Urine WBC 6-10 H (0-5) /HPF Ur Squamous Epith Cells 3-5 (0-2) /HPF Urine Bacteria 1+ (None Seen) Hyaline Casts 0-2 (0-2) /LPF Urine Test NEGATIVE (NEGATIVE) Independent Interpretation I performed an independent interpretation of an: Plain X-Ray and Ultrasound (Right lower extremities: No DVT.) Interpretation: Right knee: No fracture dislocation. Radiology Impression Discussion of test interpretation with radiology: I have reviewed the radiologist's reading. Discharge Plan Discharge Clinical Impression: Lower extremity pain, right, UTI (urinary tract infection) Patient Disposition: Home, Self-Care Instructions: Urinary Tract Infection in Women (DC), Leg Pain (ED) Prescriptions: New levofloxacin 500 mg tablet 500 mg PO DAILY Qty: 7 0RF No Action cyclobenzaprine 10 mg tablet 10 mg PO TID PRN (Reason: muscle spasm) Qty: 14 0RF naproxen 500 mg tablet 500 mg PO BID PRN (Reason: pain) Qty: 30 0RF ondansetron HCl [Zofran] 4 mg tablet 4 mg PO Q8H PRN (Reason: nausea and vomiting) Qty: 14 0RF oxcarbazepine 150 mg tablet 150 mg PO BID omeprazole 40 mg capsule,delayed release(DR/EC) 40 mg PO DAILY lorazepam 0.5 mg tablet 0.5 mg PO BID PRN (Reason: Anxiety) montelukast 10 mg tablet 10 mg PO BEDTIME fluoxetine 20 mg capsule 20 mg PO DAILY naproxen 500 mg tablet 500 mg PO BID PRN (Reason: pain) Qty: 20 0RF prednisone 20 mg tablet 40 mg PO DAILY Qty: 10 0RF albuterol sulfate 2.5 mg /3 mL (0.083 %) solution for nebulization 2.5 mg inhalation Q4-6H PRN (Reason: shortness of breath or wheezing) Qty: 90 0RF azithromycin [Zithromax Z-Olman] 250 mg tablet See Rx Instructions .ROUTE .COMPLEX Qty: 6 0RF Rx Instructions: take 500 mg today (day 1), then 250 mg for 4 days (days 2-5) prednisone 20 mg tablet 60 mg PO DAILY 5 Days Qty: 15 0RF hyoscyamine sulfate 0.125 mg tablet 0.125 mg PO QID PRN (Reason: dyspepsia) Qty: 10 0RF benzonatate 200 mg capsule 200 mg PO TID PRN (Reason: cough) Qty: 30 0RF doxycycline hyclate 100 mg tablet 100 mg PO BID Qty: 20 0RF dicyclomine 20 mg tablet 20 mg PO QID PRN (Reason: abdominal pain) Qty: 20 0RF omeprazole 40 mg capsule,delayed release(DR/EC) 40 mg PO DAILY Qty: 30 0RF lorazepam [Ativan] 1 mg tablet 1 mg PO BEDTIME PRN (Reason: anxiety) Qty: 14 0RF sucralfate 1 gram tablet 1 g PO BID Qty: 60 0RF venlafaxine 25 mg tablet 25 mg PO DAILY Qty: 30 0RF lorazepam [Ativan] 0.5 mg tablet 0.5 mg PO TID PRN (Reason: anxiety) Qty: 6 0RF prednisone 20 mg tablet 60 mg PO DAILY 4 Days Qty: 12 0RF benzonatate 100 mg capsule 100 mg PO TID PRN (Reason: cough) Qty: 14 0RF prednisone 20 mg tablet 60 mg PO DAILY 5 Days Qty: 15 0RF budesonide-formoterol [Symbicort] 80-4.5 mcg/actuation HFA aerosol inhaler 2 puff inhalation BID Qty: 10.2 0RF fluconazole [Diflucan] 50 mg tablet 50 mg PO DAILY Qty: 1 0RF
[2022-09-16 09:10] LABS: MANUAL DIFF FLAG NO
[2022-09-16 09:11] LABS: Basophils Percent Auto 0.3 % (0-2); Eosinophils Absolute Auto 0.2 X10*3/uL (0.0-0.4); Eosinophils Percent Auto 1.5 % (0-4); Hematocrit 38.9 % (37.0-47.0); Hemoglobin 12.4 g/dl (12.0-16.0); Imm Gran Abs Auto 0.03 X10*3/uL (0.00-0.03); Imm Gran Pct Auto 0.3 % (0.0-0.4); Lymphocytes Percent Auto 18.4 % (20-40); Mean Corpuscular HGB Conc 31.9 g/dl (31.0-35.0); Mean Corpuscular Hemoglobin 29.5 pg (27.0-33.0); Mean Corpuscular Volume 92.6 fL (80.0-98.0); Mean Platelet Volume 10.6 fL (9.4-12.3); Monocytes Absolute Auto 0.7 X10*3/uL (0.1-1.2); Monocytes Percent Auto 6.9 % (2-11); Neutrophils Absolute Auto 7.8 x10*3/uL (2.0-8.3); Neutrophils Percent Auto 72.6 % (45-73); Platelet Count 308 X10*3/uL (160-400); Red Cell Distribution Width 13.2 % (11.0-16.0); White Blood Count 10.8 X10*3/uL (4.8-10.8)
[2022-09-16 09:19] LABS: D Dimer High Sensitivity < 150 NG/ML
[2022-09-16 09:31] LABS: Anion Gap 11 (12-20); Blood Urea Nitrogen 9 mg/dL (9-16); Calcium 9.1 mg/dL (8.4-10.2); Carbon Dioxide 26 mmol/L (22-29); Chloride 109 mmol/L (96-108); Creatinine Clr Calc Pharmacy 104.8; Estimated Glomerular Filt Rate > 60; Glucose Random 93 mg/dL (60-115); Potassium 4.4 mmol/L (3.3-5.1); Sodium 142 mmol/L (135-145)
[2022-09-16 10:03] VITALS: BP 115/71; PULSE 76; RESP 17; TEMP 37.1; O2SAT 99
[2022-09-16 10:06] LABS: Appearance Urine Clear; Color Urine Yellow; Glucose Urine UA Negative (Negative); Leukocyte Esterase Urine Trace (Negative); Nitrite Urine Negative (Negative); PH 6.5 (5.0-9.0); Specific Gravity - Urine 1.025 (1.005-1.025); UMIC TRIGGER UACC YES; Urine Blood Negative (Negative); Urine Ketones Trace mg/dL (Negative); Urine Protein Trace mg/dL (Neg-Trace)
[2022-09-16 10:07] LABS: UPreg QC Valid YES; Urine Pregnancy NEGATIVE (NEGATIVE)
[2022-09-16 10:11] LABS: Bacteria Urine 1+ (None Seen); Hyaline Casts Urine 0-2 /LPF (0-2); UACC Culture Trigger YES
[2022-09-16] MEDS: LORazepam 0.5 MG TABLET PO (10:17)
--- NOTE | 2022-09-16 10:20 | MHC.EDTECH ---
assisted patient onto commonde per request. tolerated well. patient says she still cannot walk, but transferred onto commode very well.
--- NOTE | 2022-09-16 10:25 | PC.NURSE ---
medicated as ordered for anxiety, skin wpd, nad, worrying that she may have to be admitted, reassurance given that she will not, took her ativan in applesauce, awaiting results
--- NOTE | 2022-09-16 11:20 | PC.NURSE ---
resumed care of patient at this time, pt requesting to be discharged, MD made aware at this time
--- NOTE | 2022-09-16 11:41 | PC.NURSE ---
at bedside to discuss d/c, pt asked to get up and walk, she reported you know I want to walk, I am going to do it witnessed pt ambulate in room
[2022-09-21 02:23] LABS: Lyme Abs Screen <0.90 index
== END 2022-09-16 11:42 | disposition home or self-care (01) ==
PROVIDERS: Emergency Provider Emergency Medicine
DX: R60.0 Localized edema (principal); N39.0 Urinary tract infection, site not specified; M25.561 Pain in right knee; Z79.899 Other long term (current) drug therapy
CPT/HCPCS: 36415; 73564; 80048; 81001; 81025; 85025; 85379; 86617; 86618; 87086; 93971; 99283; 99284

== ENCOUNTER 2023-02-23 17:15 | Emergency (ER) | payer MEDICARE, MEDICAID, SELFPAY ==
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
[2023-02-23 17:26] VITALS: BP 132/88; PULSE 95; RESP 19; TEMP 36.6; O2SAT 97; BMI 25.6
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
[2023-02-23 19:02] VITALS: BP 144/84; PULSE 101; RESP 16; TEMP 37.3
[2023-02-23] MEDS: Ondansetron ODT 4 MG TAB.RAPDIS TRANSLINGU (19:13)
[2023-02-23] MEDS: Acetaminophen 325 MG TABLET 975 MG PO (19:14)
== END 2023-02-23 20:27 | disposition home or self-care (01) ==
PROVIDERS: Emergency Provider Emergency Medicine
DX: S16.1XXA Strain of muscle, fascia and tendon at neck level, initial encounter (principal); S09.90XA Unspecified injury of head, initial encounter; S13.4XXA Sprain of ligaments of cervical spine, initial encounter; R51.9 Headache, unspecified; M54.2 Cervicalgia; V49.40XA Driver injured in collision with unspecified motor vehicles in traffic accident, initial encounter; Y93.9 Activity, unspecified; Y92.410 Unspecified street and highway as the place of occurrence of the external cause; Y99.9 Unspecified external cause status; Z79.899 Other long term (current) drug therapy
CPT/HCPCS: 70450; 72125; 99283; 99284

== ENCOUNTER 2023-02-24 12:01 | Emergency (ER) | payer MEDICARE, MEDICAID, SELFPAY ==
[2023-02-24 12:13] VITALS: BP 125/30; PULSE 90; O2SAT 97
[2023-02-24 12:20] VITALS: BP 131/80; PULSE 91; RESP 18; TEMP 36.6; O2SAT 99; BMI 27.2
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
[2023-02-24 13:36] LABS: IDNOW Serial# 55D5AD1C; Influenza A Negative (Negative); Influenza B2 Negative (Negative)
[2023-02-24 13:37] LABS: COVID-19 Test Negative (Negative); IDNOW Serial# 6674DD1D
== END 2023-02-24 16:06 | disposition left against medical advice (07) ==
PROVIDERS: Registered Nurse Emergency; Emergency Provider Emergency Medicine
DX: Z04.1 Encounter for examination and observation following transport accident (principal); R51.9 Headache, unspecified; Z20.822 Contact with and (suspected) exposure to COVID-19; F12.90 Cannabis use, unspecified, uncomplicated; Z79.899 Other long term (current) drug therapy
CPT/HCPCS: 87502; 87635; 99281; 99283